=== PATIENT | male | born 1950 | race Caucasian/White ===

== ENCOUNTER → 2021-02-05 11:45 | Outpatient (BNVA) | payer MEDICAID, SELFPAY ==
[2020-02-26 15:34] VITALS: BP 106/80; BMI 27.3
== END ==
PROVIDERS: Family Provider Family Medicine; PCP Family Medicine; Visit Provider Specialist
DX: G31.83 Neurocognitive disorder with Lewy bodies (principal); F02.80 Dementia in other diseases classified elsewhere, unspecified severity, without behavioral disturbance, psychotic disturbance, mood disturbance, and anxiety; F31.9 Bipolar disorder, unspecified; F81.9 Developmental disorder of scholastic skills, unspecified; F17.210 Nicotine dependence, cigarettes, uncomplicated
CPT/HCPCS: 99205

== ENCOUNTER → 2021-03-20 10:57 | Outpatient (BNVA) | payer MEDICAID, SELFPAY ==
[2020-02-26 15:34] VITALS: BP 106/80; BMI 27.3
== END ==
PROVIDERS: Family Provider Family Medicine; PCP Family Medicine; Visit Provider Specialist
DX: G31.83 Neurocognitive disorder with Lewy bodies (principal); F02.80 Dementia in other diseases classified elsewhere, unspecified severity, without behavioral disturbance, psychotic disturbance, mood disturbance, and anxiety; F31.9 Bipolar disorder, unspecified; F81.9 Developmental disorder of scholastic skills, unspecified; F17.200 Nicotine dependence, unspecified, uncomplicated
CPT/HCPCS: 99214

== ENCOUNTER 2023-01-06 07:19 | Emergency (ER) | payer MEDICAID, SELFPAY ==
[2020-02-26 15:34] VITALS: BP 106/80; BMI 27.3
[2023-01-06 07:22] VITALS: BP 133/71; PULSE 64; RESP 20; TEMP 37; O2SAT 92
--- NOTE | 2023-01-06 07:29 | ECG_ITS ---
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 Measurements Intervals [place] Rate: 61 P: 41 NM: 209 QRS: 60 QRSD: 86 T: 66 QT: 372 QTc: 376 Interpretive Statements SINUS RHYTHM Nonspecific ST changes previous ECG available for comparison Electronically Signed On 01-06-2023 20:24:44 CDT by Liliana Lopez M.D. [email or web address] memorial [email or web address] county [email or web address].[email or web address]/store/[id number]
--- NOTE | 2023-01-06 07:29 | XR_ITS ---
WS: [id number] EXAMINATION: XR chest 1V portable [id number] REASON FOR EXAM: dyspnea/cough COMPARISON: 02/28/2015 ORDER DATE: 01/06/2023 7:32 AM TECHNIQUE: A single, portable frontal chest x-ray was obtained. X-RAY FINDINGS: The lungs are clear. Pleural spaces are clear. No pleural effusions or pneumothorax. Cardiomediastinal silhouette is altered by distorted chest positioning and the presence of a prominen t thoracolumbar scoliosis with the possibility of widening of the superior mediastinum. Aortic ectasi a and tortuosity suggested.. No evidence for pulmonary edema. Soft tissue and osseous structures are unremarkable. No tubes or lines are present. XR/XR chest 1V portable [id number] IMPRESSION: No acute pulmonary change
[2023-01-06 07:35] LABS: Basophils # 0.1 10^3/uL (0.0-0.1); Basophils % 0.8 %; Eosinophils # 0.4 10^3/uL (0.0-0.8); Eosinophils % 6.1 %; Hematocrit 35.6 % (42.0-52.0); Lymphocytes # 1.3 10^3/uL (0.8-4.8); Lymphocytes % 22.1 %; Mean Corpuscular HGB Conc 30.9 g/dL (30.0-36.0); Mean Corpuscular Hemoglobin 29.6 pg (28.0-34.0); Mean Corpuscular Volume 95.7 fl (80-94); Mean Platelet Volume 10.8 fL (7.4-10.4); Monocytes # 0.6 10^3/uL (0.2-0.9); Monocytes % 10.2 %; Neutrophils # 3.57 10^3/uL (1.8-7.7); Neutrophils % 60.6 %; Nucleated Red Blood Cells % 0 %; Platelet Count 191 10^3/cmm (130-400); Red Blood Count 3.72 10^6/uL (4.1-5.3); Red Cell Distribution Width 12.9 % (12.1-15.1); White Blood Count 5.9 10^3/uL (4.0-10.0)
--- NOTE | 2023-01-06 07:55 | ED_ITS ---
HPI - Weakness General: Chief complaint: Weakness Stated complaint: Weakness Time Seen by Provider: 01/06/23 07:24 Source: patient Mode of arrival: EMS History of Present Illness: 72-year-old male presents emergency room via EMS. He lives at a assisted living type setting still smokes heavily he was using a walker this morning which is his usual routine and he stumbled with a walker and fell. He denies any pain did not strike his head did not lose consciousness. He is not on any anticoagulants. No chest pain or shortness of breath. Patient still smokes a couple of packs a day has significant nicotine staining on his left hand as well as on his mustache and sanchez. According to his old records he has a history of Lewy body dementia. Associated symptoms: Reports confusion; Denies chest pain, chills, melena, decreased appetite, diaphoresis, dysuria, easy bruising, fever(s), headache(s), myalgias, nausea, rash, short of breath, syncope or vomiting Review of Systems Const: Denies: fever(s), chills, fatigue, malaise or diaphoresis ENMT: Denies: throat pain, ear or mastoid pain, nasal discharge or nasal congestion Card: Denies: chest pain, palpitations, irregular heart rhythm or syncope Resp: Denies: dyspnea, productive cough or non-productive cough GI: Denies: nausea, vomiting or melena : Denies: dysuria Musc: Denies: neck pain, back pain or extremity pain Skin/Breast: Denies: rash or pruritus Neuro: Reports: confusion; Denies: headache(s) Dannie/Lymph: Denies: easy bruising [facility] ED PFSH: Medical History (Updated 01/06/23 @ 09:57 by Geovanny Solis DO) Bipolar affective COPD (chronic obstructive pulmonary disease) Learning disability Lewy body dementia Schizophrenia Family History Grandmother Diabetes Grandfather Cancer Social History Quit status (tobacco): not considering quitting Alcohol intake: never Substance/Drug Use: never Housing: Assisted Living Facility Marital status: Single Current gender identity: Male Physical Exam Const: GENERAL APPEARANCE: cooperative and comfortable ORIENTATION/CONSCIOUSNESS: Yes awake, Yes oriented to person, Yes oriented to place and Yes oriented to time HENMT: COMMON NORMALS: normocephalic, atraumatic and hearing grossly normal bi laterally HEAD & SCALP: normocephalic and atraumatic Resp: COMMON NORMALS: normal respiratory effort, No retractions, No use of accessory muscles and clear to auscultation bilaterally AUSCULTATION: clear to auscultation bilaterally Cardio: COMMON NORMALS: regular rate, regular rhythm and No murmurs present (Cardio) RATE: regular rate RHYTHM: regular rhythm GI: COMMON NORMALS: Soft to palpation and No hepatosplenomegaly present AUSCULTATION: Yes normoactive bowel sounds PALPATION: Yes Soft to palpation, No Tenderness to palpation present (GI), No Guarding due to palpation present (GI) and Yes No hepatosplenomegaly present Extremity: COMMON NORMALS: normal to inspection, capillary refill normal, no clubbing, cyanosis or edema, no calf tenderness and no pedal edema Neuro: SENSORIUM/ORIENTATION: Yes oriented to person, Yes oriented to place and Yes oriented to time Skin: COMMON NORMALS: no rashes or lesions noted GENERAL SKIN EXAM: no rashes or lesions noted Course Vital Signs: Vital signs: Vital Signs Temperature 98.6 F 01/06/23 07:22 Pulse Rate 64 01/06/23 07:22 Respiratory Rate 20 H 01/06/23 07:22 Blood Pressure 133/71 01/06/23 07:22 Pulse Oximetry 92 01/06/23 07:22 Oxygen Delivery Me thod Room Air 01/06/23 07:22 MDM - Weakness Medical Decision Making Initial EKG computer read as ST elevation in the inferior leads. Patient has no chest pain there is no reciprocal changes. Appears to be artifactual. We will repeat EKG. Mechanical fall patient has history of Lewy body disease. He is not having any chest pain laboratories reviewed he is some mild anemia chronic kidney disease with a creatinine of 1.4. EKG unchanged from previous repeat EKG was normal. We will discharge patient home. Discussed with the family they would like to go home at this point. Return if has further problems. Medical Records I reviewed the patient's medical records. Lab Data I reviewed the patient's lab results. 01/06/23 07:10 01/06/23 07:10 Radiology Impressions Chest X-Ray 01/06/23 07:29 IMPRESSION: No acute pulmonary change Laboratory Results WBC 5.9 10^3/uL (4.0-10.0) 01/06/23 07:10 RBC 3.72 10^6/uL (4.1-5.3) L 01/06/23 07:10 Hgb 11.0 g/dL (11.7-16.6) L 01/06/23 07:10 Hct 35.6 % (42.0-52.0) L 01/06/23 07:10 MCV 95.7 fl (80-94) H 01/06/23 07:10 MCH 29.6 pg (28.0-34.0) 01/06/23 07:10 MCHC 30.9 g/dL (30.0-36.0) 01/06/23 07:10 RDW 12.9 % (12.1-15.1) 01/06/23 07:10 Plt Count 191 10^3/cmm (130-400) 01/06/23 07:10 MPV 10.8 fL (7.4-10.4) H 01/06/23 07:10 Neut % (Auto) 60.6 % 01/06/23 07:10 Lymph % (Auto) 22.1 % 01/06/23 07:10 [place] % (Auto) 10.2 % 01/06/23 07:10 Eos % (Auto) 6.1 % 01/06/23 07:10 Baso % (Auto) 0.8 % 01/06/23 07:10 Neut # (Auto) 3.57 10^3/uL (1.8-7.7) 01/06/23 07:10 Lymph # (Auto) 1.3 10^3/uL (0.8-4.8) 01/06/23 07:10 [place] # (Auto) 0.6 10^3/uL (0.2-0.9) 01/06/23 07:10 Eos # (Auto) 0.4 10^3/uL (0.0-0.8) 01/06/23 07:10 Baso # (Auto) 0.1 10^3/uL (0.0-0.1) 01/06/23 07:10 Nucleated RBC % (auto) 0 % 01/06/23 07:10 Nucleated RBCs # 0.0 /100WBC 01/06/23 07:10 Sodium 140 mmol/L (136-145) 01/06/23 07:10 Potassium 5.0 mmol/L (3.5-5.1) 01/06/23 07:10 Chloride 108 mmol/L (98-107) H 01/06/23 07:10 Carbon Dioxide 23 mmol/L (22-29) 01/06/23 07:10 Anion Gap 14.0 (5-19) 01/06/23 07:10 BUN 15 mg/dL (8-23) 01/06/23 07:10 Creatinine 1.4 mg/dL (0.7-1.2) H 01/06/23 07:10 GFR Calculation Not Reportable 01/06/23 07:10 Glucose 98 mg/dL (65-115) 01/06/23 07:10 Calculated Osmolality 291 mOsm/kg (285-295) 01/06/23 07:10 Calcium 9.4 mg/dL (8.5-10.5) 01/06/23 07:10 Total Bilirubin 0.2 mg/dL (0.15-1.2) 01/06/23 07:10 AST 14 U/L (0-40) 01/06/23 07:10 ALT 10 U/L (0-41) 01/06/23 07:10 Alkaline Phosphatase 98 U/L (40-130) 01/06/23 07:10 Total Protein 5.7 g/dL (6.6-8.7) L 01/06/23 07:10 Albumin 3.6 g/dL (3.5-5.2) 01/06/23 07:10 Globulin 2.1 g/dL (1.3-4.6) 01/06/23 07:10 Urine Color Yellow (Yellow) 01/06/23 08:07 Urine Appearance Clear (CLEAR) 01/06/23 08:07 Urine pH 7 (5-7) 01/06/23 08:07 Ur Specific [place] 1.010 (1.005-1.030) 01/06/23 08:07 Urine Protein Neg (Negative) 01/06/23 08:07 Urine Glucose (UA) Norm (Normal) 01/06/23 08:07 Urine Ketones Negative (Negative) 01/06/23 08:07 Urine Blood Neg (Negative) 01/06/23 08:07 Urine Nitrate Negative (Negative) 01/06/23 08:07 Urine Bilirubin Neg (Negative) 01/06/23 08:07 Urine Urobilinogen Norm mg/dL (Negative) 01/06/23 08:07 Ur Leukocyte Esterase Negative (Negative) 01/06/23 08:07 Discharge Plan Discharge Patient Disposition: Home Clinical Impression: Accident due to mechanical fall without injury, Lewy body dementia Condition: Stable Prescriptions: No Action escitalopram oxalate [Lexapro] 10 mg tablet 10 mg PO DAILY@08 loratadine 10 mg tablet 10 mg PO DAILY@08 risperidone [Risperdal] 0.5 mg tablet 0.5 mg PO BID@08,20 omeprazole 40 mg capsule,delayed release(DR/EC) 40 mg PO BID@05,16 tamsulosin [Flomax] 0.4 mg capsule 0.4 mg PO BEDTIME@20 trihexyphenidyl 2 mg tablet 2 mg PO BID@08,20 Rx Instructions: give with food (meal/snack) Advair Diskus 250-50 mcg/dose Blister With Device 1 inh INHALATION BID@08,20 albuterol sulfate 2.5 mg /3 mL (0.083 %) Solution For Nebulization 2.5 mg INHALATION Q6H PRN (Reason: Shortness Of Breath) urea 40 % Cream See Rx Instructions .ROUTE .COMPLEX Rx Instructions: apply topically to affected area on right foot callus at bedtime @20:00 propranolol 20 mg Tablet 20 mg PO BID@08,20 Spiriva with HandiHaler 18 mcg Capsule, W/Inhalation Device 1 cap INHALATION DAILY@06 Rx Instructions: puncture 1 cap using device; one dose = 2 inhalations lithium carbonate 300 mg capsule 300 mg PO DAILY@08 Sinemet 25-100 mg tablet 1 tab PO BID@08,12 Discharge Orders: Discharge ED (Routine); Ordered 01/06/23 Ordered By: Geovanny Solis Referrals: Rosi Hernandez MD [Primary Care Provider] - Discharge Diet: Usual diet Discharge Activity: Resume usual activity Patient Instructions: Opioid Safety, Pain Management Activity Restrictions/Additional Instructions: You are seen today after a fall. There were no acute findings on labs and x-ray done in the emergency room your exam was normal. Continue all previously prescribed medications. Coding Level of Care Code ED Corporate Counsel for Ashley Augustin
--- NOTE | 2023-01-06 07:58 | ECG_ITS ---
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 Measurements Intervals [place] Rate: 51 P: 47 TN: 179 QRS: 69 QRSD: 88 T: 75 QT: 401 QTc: 370 Interpretive Statements SINUS BRADYCARDIA Compared to ECG 01/06/2023 07:35:56 Sinus rhythm no longer present ST (T wave) deviation no longer present Myocardial infarct finding no longer present Electronically Signed On 01-06-2023 20:25:50 CDT by Liliana Lopez M.D. [email or web address] general [email or web address] Technologiesmckitrick hospital.[place]/store/[id number]
[2023-01-06 08:15] LABS: Alanine Aminotransferase 10 U/L (0-41); Albumin Level 3.6 g/dL (3.5-5.2); Alkaline Phosphatase 98 U/L (40-130); Aspartate Amino Transferase 14 U/L (0-40); Blood Urea Nitrogen 15 mg/dL (8-23); Calcium 9.4 mg/dL (8.5-10.5); Carbon Dioxide 23 mmol/L (22-29); Chloride 108 mmol/L (98-107); Globulin 2.1 g/dL (1.3-4.6); Glucose 98 mg/dL (65-115); Osmolality Calculated 291 mOsm/kg (285-295); Sodium 140 mmol/L (136-145); Total Bilirubin 0.2 mg/dL (0.15-1.2); Total Protein 5.7 g/dL (6.6-8.7)
[2023-01-06 08:22] LABS: Add Urine Microscopic? NO; Charge for UA Resulting for Rev
[2023-01-06 08:27] LABS: Bilirubin Urine Neg (Negative); Blood Urine Neg (Negative); Glucose Urine UA Norm (Normal); Ketones Urine Negative (Negative); Leukocyte Esterase Urine Negative (Negative); Nitrate Urine Negative (Negative); Protein Urine Neg (Negative); Urine Appearance Clear (CLEAR); Urine Color Yellow (Yellow); Urobilinogen Urine Norm (Negative); pH Urine 7 (5-7)
--- NOTE | 2023-01-06 08:29 | PC.PHAR ---
pt is from [facility] [phone]-denita carias nurse at [facility] states the pt had no 8 am meds states the pt only took omeprazole 40mg and spiriva this am 01/06/23
== END 2023-01-06 10:58 | disposition home or self-care (01) ==
PROVIDERS: Emergency Provider Family Medicine; PCP Family Medicine
DX: G31.83 Neurocognitive disorder with Lewy bodies (principal); F02.80 Dementia in other diseases classified elsewhere, unspecified severity, without behavioral disturbance, psychotic disturbance, mood disturbance, and anxiety; J44.9 Chronic obstructive pulmonary disease, unspecified; D63.1 Anemia in chronic kidney disease; F17.210 Nicotine dependence, cigarettes, uncomplicated; Z79.899 Other long term (current) drug therapy; W01.0XXA Fall on same level from slipping, tripping and stumbling without subsequent striking against object, initial encounter
CPT/HCPCS: 71045; 80053; 81003; 85025; 93005; 99285

== ENCOUNTER → 2023-12-08 09:41 | Outpatient (BNVA) | payer MEDICAID, SELFPAY ==
[2020-02-26 15:34] VITALS: BP 106/80; BMI 27.3
== END ==
PROVIDERS: PCP Family Medicine; Referring Provider Family Medicine; Visit Provider Specialist
DX: G20.B2 Parkinson's disease with dyskinesia, with fluctuations (principal); R29.90 Unspecified symptoms and signs involving the nervous system; F31.78 Bipolar disorder, in full remission, most recent episode mixed
CPT/HCPCS: 99214; 99215

== ENCOUNTER 2024-02-24 04:32 | Inpatient (IN) | payer MEDICAID, SELFPAY ==
[2020-02-26 15:34] VITALS: BP 106/80; BMI 27.3
[2024-02-24] VITALS (10 sets, daily range): BP systolic 85–119; BP diastolic 40–74; PULSE 16–80; RESP 14–19; TEMP 36.6–36.9; O2SAT 92–96; BMI 23.3; BMI 22.1
--- NOTE | 2024-02-24 04:38 | XRR_ITS ---
PROCEDURE INFORMATION: Exam: XR Right Hip Exam date and time: 02/24/2024 5:12 AM Age: 73 years old Clinical indication: Injury or trauma; Fall; Blunt trauma (contusions or hematomas); Right; Hip; Additional info: Hip pain TECHNIQUE: Imaging protocol: Radiologic exam of the right hip. Views: 1 view hip with pelvis when performed. COMPARISON: No relevant prior studies available. FINDINGS: Bones/joints: There are degenerative changes involving the lower lumbar spine. There is an intertrochanteric fracture on the right with proximal migration of the distal fracture fragment and medial angulation of the distal fracture fragment. The pelvic ring otherwise appears to be intact. Proximal left femur is normal. Bony mineralization is decreased. Soft tissues: Unremarkable. XR/XR hip RT 2-3V wo/w pel* [id number] IMPRESSION: 1. Intertrochanteric fracture proximal right femur.
--- NOTE | 2024-02-24 04:40 | W.ED.FALL ---
Documented by User: Renetta Winter MD 02/24/24 05:39 HPI - Fall General: Chief Complaint: Fall Stated Complaint: fall R leg deformity Time Seen by Provider: 02/24/24 04:38 History of Present Illness: 73-year-old man with history of schizophrenia, Lewy body dementia and COPD who [facility] after he was found sitting on the floor crosslegged. He appears to have some deformity of his right leg possibly, however he has some baseline abnormalities of his feet legs and torso. Concern for right hip fracture. Related Data Home Medications Medication Instructions Recorded Confirmed escitalopram oxalate 10 mg tablet 10 mg PO DAILY@12/28/19 12/08/23 (Lexapro) loratadine 10 mg tablet 10 mg PO DAILY@12/28/19 12/08/23 omeprazole 40 mg capsule,delayed 40 mg PO BID@,12/28/19 12/08/23 release tamsulosin 0.4 mg capsule (Flomax) 0.4 mg PO BEDTIME@12/28/19 12/08/23 albuterol sulfate 2.5 mg/3 mL 2.5 mg inhalation Q6H PRN 01/06/23 12/08/23 (0.083 %) solution for nebulization Shortness Of Breath carbidopa 25 mg-levodopa 100 mg 1 tab PO BID@,01/06/23 12/08/23 tablet (Sinemet) fluticasone 250 mcg-salmeterol 50 1 inh inhalation BID@,01/06/23 12/08/23 mcg/dose blistr powdr for inhalation (Advair Diskus) lithium carbonate 300 mg capsule 300 mg PO DAILY@01/06/23 12/08/23 propranolol 20 mg tablet 20 mg PO BID@,01/06/23 12/08/23 tiotropium bromide 18 mcg capsule 1 cap inhalation DAILY@01/06/23 12/08/23 with inhalation device (Spiriva with HandiHaler) urea 40 % topical cream See Rx Instructions .Route .COMPLEX 01/06/23 12/08/23 risperidone 0.5 mg tablet 0.5 mg PO ONCE 12/08/23 12/08/23 (Risperdal) Previous Rx's Medication Instructions Recorded trihexyphenidyl 2 mg tablet 2 mg PO TID #90 tabs 12/08/23 Allergies Allergy/AdvReac Type Severity Reaction Status Date / Time No Known Allergies Allergy Verified 12/08/23 09:44 Review of Systems General: Reports: ROS unobtainable due to medical condition PFSH ED PFSH: Medical History COPD (chronic obstructive pulmonary disease) Learning disability Bipolar affective Lewy body dementia Schizophrenia Family History Grandmother Diabetes Grandfather Cancer Social History Smoking and tobacco/nicotine status: current every day tobacco/nicotine user Quit status (tobacco/nicotine): not considering quitting Alcohol intake: never Substance/Drug Use: never Housing: Assisted Living Facility Marital status: Single Current gender identity: Male Physical Exam Narrative: EXAM NARRATIVE: General: Alert, no acute distress. Skin: Warm, dry. Head: Normocephalic, atraumatic. Neck: Supple, trachea midline. Eye: Extraocular movements are intact. Ears, nose, mouth and throat: mucosa moist. Cardiovascular: Regular, Normal peripheral perfusion. Respiratory: Lungs are clear to auscultation, respirations are non-labored, breath sounds are equal, Symmetrical chest wall expansion. 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 Pain with movement of that leg in the hip. Neurological: Alert, No focal neurological deficit observed. Psychiatric: Cooperative, appropriate mood & affect. Course Vital Signs: Vital signs: Vital Signs Temperature 98.2 F 02/24/24 06:41 Pulse Rate 80 02/24/24 06:41 Respiratory Rate 16 02/24/24 06:41 Blood Pressure 105/61 02/24/24 06:41 Pulse Oximetry 96 02/24/24 06:41 Oxygen Delivery Me thod Room Air 02/24/24 05:56 MDM - Fall Medical Decision Making X-ray of the right hip and pelvis: Acute fracture. Films were interpreted by myself the emergency room provider and pending final radiology review. Chest x-ray: No acute process. No infiltrate. No pneumothorax. This was reviewed and interpreted by myself the ER physician. EKG: Time 5:34 AM. Rate 56. Sinus bradycardia, No ST-T changes, no ectopy, normal [place] & QRS intervals, This was reviewed and interpreted by myself the ER physician at 5:35 AM Lab Data 02/24/24 05:27 02/24/24 05:27 Laboratory Results WBC 7.03 10^3/uL (3.29-11.43) 02/24/24 05:27 RBC 3.68 10^6/uL (3.85-5.65) L 02/24/24 05:27 Hgb 11.00 g/dL (11.27-16.99) L 02/24/24 05:27 Hct 35.9 % (37-53) L 02/24/24 05:27 MCV 97.6 fl (82-101) 02/24/24 05:27 MCH 29.9 pg (27-33) 02/24/24 05:27 MCHC 30.6 g/dL (30-55) 02/24/24 05:27 RDW 13.2 % (12.1-15.1) 02/24/24 05:27 Plt Count 180 10^3/cmm (157-399) 02/24/24 05:27 MPV 11.2 fL (7.4-10.4) H 02/24/24 05:27 Neut % (Auto) 53.9 % 02/24/24 05:27 Lymph % (Auto) 28.6 % 02/24/24 05:27 [place] % (Auto) 10.8 % 02/24/24 05:27 Eos % (Auto) 5.7 % 02/24/24 05:27 Baso % (Auto) 0.9 % 02/24/24 05:27 Neut # (Auto) 3.79 10^3/uL (1.8-7.7) 02/24/24 05:27 Lymph # (Auto) 2.0 10^3/uL (0.8-4.8) 02/24/24 05:27 [place] # (Auto) 0.8 10^3/uL (0.2-0.9) 02/24/24 05:27 Eos # (Auto) 0.4 10^3/uL (0.0-0.8) 02/24/24 05:27 Baso # (Auto) 0.1 10^3/uL (0.0-0.1) 02/24/24 05:27 Nucleated RBC % (auto) 0 % 02/24/24 05:27 Nucleated RBCs # 0.0 /100WBC 02/24/24 05:27 PT 12.70 SECONDS (12.1-14.9) 02/24/24 05:27 INR 0.92 (0.8-1.2) 02/24/24 05:27 APTT 34.7 SECONDS (23.9-36.7) 02/24/24 05:27 Sodium 138 mmol/L (136-145) 02/24/24 05:27 Potassium 4.7 mmol/L (3.5-5.1) 02/24/24 05:27 Chloride 105 mmol/L (98-107) 02/24/24 05:27 Carbon Dioxide 26 mmol/L (22-29) 02/24/24 05:27 Anion Gap 11.7 (5-19) 02/24/24 05:27 BUN 24 mg/dL (8-23) H 02/24/24 05:27 Creatinine 1.3 mg/dL (0.7-1.2) H 02/24/24 05:27 GFR Calculation Not Reportable 02/24/24 05:27 Glucose 108 mg/dL (65-115) 02/24/24 05:27 Calculated Osmolality 291 mOsm/kg (285-295) 02/24/24 05:27 Calcium 8.8 mg/dL (8.5-10.5) 02/24/24 05:27 Total Bilirubin 0.3 mg/dL (0.15-1.2) 02/24/24 05:27 AST 16 U/L (0-40) 02/24/24 05:27 ALT < 5 U/L (0-41) 02/24/24 05:27 Alkaline Phosphatase 112 U/L (40-130) 02/24/24 05:27 Troponin T Baseline 11 ng/L (0-15) 02/24/24 05:27 C-Reactive Protein 3.0 mg/L (0.0-4.9) 02/24/24 05:27 Total Protein 6.4 g/dL (6.6-8.7) L 02/24/24 05:27 Albumin 3.6 g/dL (3.5-5.2) 02/24/24 05:27 Globulin 2.8 g/dL (1.3-4.6) 02/24/24 05:27 TSH 1.16 uIU/mL (0.27-4.20) 02/24/24 05:27 Urine Color Yellow (Yellow) 02/24/24 06:00 Urine Appearance Cloudy (CLEAR) A 02/24/24 06:00 Urine pH 6.5 (5-7) 02/24/24 06:00 Ur Specific [place] 1.007 (1.005-1.030) 02/24/24 06:00 Urine Protein Negative (Negative) 02/24/24 06:00 Urine Glucose (UA) Negative (Normal) 02/24/24 06:00 Urine Ketones Negative (Negative) 02/24/24 06:00 Urine Blood Negative (Negative) 02/24/24 06:00 Urine Nitrate Positive (Negative) A 02/24/24 06:00 Urine Bilirubin Negative (Negative) 02/24/24 06:00 Urine Urobilinogen 0.2 mg/dL (Negative) 02/24/24 06:00 Ur Leukocyte Esterase 2+ (Negative) A 02/24/24 06:00 Urine RBC 0-2 /hpf (0-2) 02/24/24 06:00 Urine WBC 21-50 /hpf (0-5) H 02/24/24 06:00 Ur Squamous Epith Cells 0-5 /hpf (0-5) 02/24/24 06:00 Amorphous Sediment Not Reportable 02/24/24 06:00 Urine Bacteria 4+ /hpf (NONE) H 02/24/24 06:00 Hyaline Casts 0-4 /lpf H 02/24/24 06:00 [place] 0.6 mmol/L (0.6-1.2) 02/24/24 05:27 Discharge Plan Discharge Patient Disposition: Admitted As Inpatient Admit Provider: Bhupinder Jara Clinical Impression: Closed hip fracture, Lewy body dementia, UTI (urinary tract infection) Parkinson's Disease Qualifiers: Dyskinesia presence: with dyskinesia Fluctuating manifestations: with fluctuating manifestations Qualified Code(s): G20.B2 - Parkinson's disease with dyskinesia, with fluctuations Condition: Stable Coding Level of Care Code ED Front Sight Attacher for Chg Fwd Documented by User: Geovanny Solis DO 02/24/24 07:09 HPI - Fall General: Chief Complaint: Fall Stated Complaint: fall R leg deformity Time Seen by Provider: 02/24/24 04:38 Related Data Home Medications Medication Instructions Recorded Confirmed escitalopram oxalate 10 mg tablet 10 mg PO DAILY@12/28/19 12/08/23 (Lexapro) loratadine 10 mg tablet 10 mg PO DAILY@12/28/19 12/08/23 omeprazole 40 mg capsule,delayed 40 mg PO BID@05,12/28/19 12/08/23 release tamsulosin 0.4 mg capsule (Flomax) 0.4 mg PO BEDTIME@12/28/19 12/08/23 albuterol sulfate 2.5 mg/3 mL 2.5 mg inhalation Q6H PRN 01/06/23 12/08/23 (0.083 %) solution for nebulization Shortness Of Breath carbidopa 25 mg-levodopa 100 mg 1 tab PO BID@08,01/06/23 12/08/23 tablet (Sinemet) fluticasone 250 mcg-salmeterol 50 1 inh inhalation BID@,01/06/23 12/08/23 mcg/dose blistr powdr for inhalation (Advair Diskus) lithium carbonate 300 mg capsule 300 mg PO DAILY@01/06/23 12/08/23 propranolol 20 mg tablet 20 mg PO BID@,01/06/23 12/08/23 tiotropium bromide 18 mcg capsule 1 cap inhalation DAILY@01/06/23 12/08/23 with inhalation device (Spiriva with HandiHaler) urea 40 % topical cream See Rx Instructions .Route .COMPLEX 01/06/23 12/08/23 risperidone 0.5 mg tablet 0.5 mg PO ONCE 12/08/23 12/08/23 (Risperdal) Previous Rx's Medication Instructions Recorded trihexyphenidyl 2 mg tablet 2 mg PO TID #90 tabs 12/08/23 Allergies Allergy/AdvReac Type Severity Reaction Status Date / Time No Known Allergies Allergy Verified 12/08/23 09:44 [facility] ED PFSH: Medical History COPD (chronic obstructive pulmonary disease) Learning disability Bipolar affective Lewy body dementia Schizophrenia Family History Grandmother Diabetes Grandfather Cancer Social History Smoking and tobacco/nicotine status: current every day tobacco/nicotine user Quit status (tobacco/nicotine): not considering quitting Alcohol intake: never Substance/Drug Use: never Housing: Assisted Living Facility Marital status: Single Current gender identity: Male Course Vital Signs: Vital signs: Vital Signs Temperature 98.2 F 02/24/24 06:41 Pulse Rate 80 02/24/24 06:41 Respiratory Rate 16 02/24/24 06:41 Blood Pressure 105/61 02/24/24 06:41 Pulse Oximetry 96 02/24/24 06:41 Oxygen Delivery Me thod Room Air 02/24/24 05:56 MDM - Fall Medical Decision Making X-ray of the right hip and pelvis: Acute fracture. Films were interpreted by myself the emergency room provider and pending final radiology review. Chest x-ray: No acute process. No infiltrate. No pneumothorax. This was reviewed and interpreted by myself the ER physician. EKG: Time 5:34 AM. Rate 56. Sinus bradycardia, No ST-T changes, no ectopy, normal [place] & QRS intervals, This was reviewed and interpreted by myself the ER physician at 5:35 AM Care assumed at change of shift. Right intertrochanteric hip fracture with a history of schizophrenia and Parkinson's. Discussed Dr. Jara as well as Dr. Quesada will admit orders written lithium level also ordered. Medical Records I reviewed the patient's medical records. Lab Data I reviewed the patient's lab results. 02/24/24 05:27 02/24/24 05:27 Laboratory Results WBC 7.03 10^3/uL (3.29-11.43) 02/24/24 05:27 RBC 3.68 10^6/uL (3.85-5.65) L 02/24/24 05:27 Hgb 11.00 g/dL (11.27-16.99) L 02/24/24 05:27 Hct 35.9 % (37-53) L 02/24/24 05:27 MCV 97.6 fl (82-101) 02/24/24 05:27 MCH 29.9 pg (27-33) 02/24/24 05:27 MCHC 30.6 g/dL (30-55) 02/24/24 05:27 RDW 13.2 % (12.1-15.1) 02/24/24 05:27 Plt Count 180 10^3/cmm (157-399) 02/24/24 05:27 MPV 11.2 fL (7.4-10.4) H 02/24/24 05:27 Neut % (Auto) 53.9 % 02/24/24 05:27 Lymph % (Auto) 28.6 % 02/24/24 05:27 [place] % (Auto) 10.8 % 02/24/24 05:27 Eos % (Auto) 5.7 % 02/24/24 05:27 Baso % (Auto) 0.9 % 02/24/24 05:27 Neut # (Auto) 3.79 10^3/uL (1.8-7.7) 02/24/24 05:27 Lymph # (Auto) 2.0 10^3/uL (0.8-4.8) 02/24/24 05:27 [place] # (Auto) 0.8 10^3/uL (0.2-0.9) 02/24/24 05:27 Eos # (Auto) 0.4 10^3/uL (0.0-0.8) 02/24/24 05:27 Baso # (Auto) 0.1 10^3/uL (0.0-0.1) 02/24/24 05:27 Nucleated RBC % (auto) 0 % 02/24/24 05:27 Nucleated RBCs # 0.0 /100WBC 02/24/24 05:27 PT 12.70 SECONDS (12.1-14.9) 02/24/24 05:27 INR 0.92 (0.8-1.2) 02/24/24 05:27 APTT 34.7 SECONDS (23.9-36.7) 02/24/24 05:27 Sodium 138 mmol/L (136-145) 02/24/24 05:27 Potassium 4.7 mmol/L (3.5-5.1) 02/24/24 05:27 Chloride 105 mmol/L (98-107) 02/24/24 05:27 Carbon Dioxide 26 mmol/L (22-29) 02/24/24 05:27 Anion Gap 11.7 (5-19) 02/24/24 05:27 BUN 24 mg/dL (8-23) H 02/24/24 05:27 Creatinine 1.3 mg/dL (0.7-1.2) H 02/24/24 05:27 GFR Calculation Not Reportable 02/24/24 05:27 Glucose 108 mg/dL (65-115) 02/24/24 05:27 Calculated Osmolality 291 mOsm/kg (285-295) 02/24/24 05:27 Calcium 8.8 mg/dL (8.5-10.5) 02/24/24 05:27 Total Bilirubin 0.3 mg/dL (0.15-1.2) 02/24/24 05:27 AST 16 U/L (0-40) 02/24/24 05:27 ALT < 5 U/L (0-41) 02/24/24 05:27 Alkaline Phosphatase 112 U/L (40-130) 02/24/24 05:27 Troponin T Baseline 11 ng/L (0-15) 02/24/24 05:27 C-Reactive Protein 3.0 mg/L (0.0-4.9) 02/24/24 05:27 Total Protein 6.4 g/dL (6.6-8.7) L 02/24/24 05:27 Albumin 3.6 g/dL (3.5-5.2) 02/24/24 05:27 Globulin 2.8 g/dL (1.3-4.6) 02/24/24 05:27 TSH 1.16 uIU/mL (0.27-4.20) 02/24/24 05:27 Urine Color Yellow (Yellow) 02/24/24 06:00 Urine Appearance Cloudy (CLEAR) A 02/24/24 06:00 Urine pH 6.5 (5-7) 02/24/24 06:00 Ur Specific [place] 1.007 (1.005-1.030) 02/24/24 06:00 Urine Protein Negative (Negative) 02/24/24 06:00 Urine Glucose (UA) Negative (Normal) 02/24/24 06:00 Urine Ketones Negative (Negative) 02/24/24 06:00 Urine Blood Negative (Negative) 02/24/24 06:00 Urine Nitrate Positive (Negative) A 02/24/24 06:00 Urine Bilirubin Negative (Negative) 02/24/24 06:00 Urine Urobilinogen 0.2 mg/dL (Negative) 02/24/24 06:00 Ur Leukocyte Esterase 2+ (Negative) A 02/24/24 06:00 Urine RBC 0-2 /hpf (0-2) 02/24/24 06:00 Urine WBC 21-50 /hpf (0-5) H 02/24/24 06:00 Ur Squamous Epith Cells 0-5 /hpf (0-5) 02/24/24 06:00 Amorphous Sediment Not Reportable 02/24/24 06:00 Urine Bacteria 4+ /hpf (NONE) H 02/24/24 06:00 Hyaline Casts 0-4 /lpf H 02/24/24 06:00 [place] 0.6 mmol/L (0.6-1.2) 02/24/24 05:27 XR interpretation done by ED provider, pending radiology final review Discharge Plan Discharge Patient Disposition: Admitted As Inpatient Admit Provider: Bhupinder Jara Clinical Impression: Closed hip fracture, Lewy body dementia, UTI (urinary tract infection) Parkinson's Disease Qualifiers: Dyskinesia presence: with dyskinesia Fluctuating manifestations: with fluctuating manifestations Qualified Code(s): G20.B2 - Parkinson's disease with dyskinesia, with fluctuations Condition: Stable Coding Level of Care Code ED Front Sight Attacher for Ashley Augustin
--- NOTE | 2024-02-24 05:14 | XRR_ITS ---
PROCEDURE INFORMATION: Exam: XR Chest Exam date and time: 02/24/2024 5:27 AM Age: 73 years old Clinical indication: Injury or trauma; Fall; Blunt trauma (contusions or hematomas); Additional info: Presurgical workup TECHNIQUE: Imaging protocol: Radiologic exam of the chest. Views: 1 view. COMPARISON: CR XR chest 1V portable [id number] 01/06/2023 7:59 AM FINDINGS: Lungs: Unremarkable. No consolidation. Pleural spaces: Unremarkable. No pleural effusion. No pneumothorax. Heart/Mediastinum: The heart is slightly enlarged. There is calcified plaque involving the aorta. Bones/joints: Unremarkable. XR/XR chest 1V portable [id number] IMPRESSION: 1. Mild cardiomegaly.
--- NOTE | 2024-02-24 05:14 | ECG_ITS ---
[facility] Test Date: 2024-02-24 Pat Name: Miller Villanueva Department: Room: Gender: Male Android Ios Developer: : [id number] Requested By: Renetta Ferrer Order Number: [id number] Reading MD: SURAJ VILLARREAL Measurements Intervals [place] Rate: 55 P: 56 OR: 234 QRS: 75 QRSD: 89 T: 76 QT: 396 QTc: 382 Interpretive Statements SINUS BRADYCARDIA , Artifact Non specific ST changes in inferior leads due to artifact Compared to ECG 01/06/2023 08:03:22 Artifact is present now Electronically Signed On 02-24-2024 11:48:31 CDT by SURAJ VILLARREAL [id number]
--- NOTE | 2024-02-24 05:17 | XRR_ITS ---
PROCEDURE INFORMATION: Exam: XR Right Femur Exam date and time: 02/24/2024 5:22 AM Age: 73 years old Clinical indication: Injury or trauma; Fall; Blunt trauma; Hip; Right; Additional info: Hip fracture TECHNIQUE: Imaging protocol: Radiologic exam of the right femur. Views: 2 views. COMPARISON: CR (PELVIS, ) 02/24/2024 5:12 AM FINDINGS: Bones/joints: There is an intertrochanteric fracture involving the proximal right femur with proximal migration of the distal fracture fragment and medial angulation of the distal fracture fragment. No additional fractures are noted. Bony mineralization is decreased. Right hip joint spaces relatively well preserved. Soft tissues: Unremarkable. XR/XR femur RT min 2V* [id number] IMPRESSION: 1. Intertrochanteric fracture.
[2024-02-24 05:36] LABS: Basophils # 0.1 10^3/uL (0.0-0.1); Basophils % 0.9 %; Eosinophils # 0.4 10^3/uL (0.0-0.8); Eosinophils % 5.7 %; Hematocrit 35.9 % (37-53); Lymphocytes % 28.6 %; Mean Corpuscular HGB Conc 30.6 g/dL (30-55); Mean Corpuscular Hemoglobin 29.9 pg (27-33); Mean Corpuscular Volume 97.6 fl (82-101); Mean Platelet Volume 11.2 fL (7.4-10.4); Monocytes # 0.8 10^3/uL (0.2-0.9); Monocytes % 10.8 %; Neutrophils # 3.79 10^3/uL (1.8-7.7); Neutrophils % 53.9 %; Nucleated Red Blood Cells % 0 %; Platelet Count 180 10^3/cmm (157-399); Red Blood Count 3.68 10^6/uL (3.85-5.65); Red Cell Distribution Width 13.2 % (12.1-15.1); White Blood Count 7.03 10^3/uL (3.29-11.43)
[2024-02-24] MEDS: HYDROmorphone 1 mg/mL INJ 1 mL 0.5 MG IVP (05:37)
[2024-02-24] MEDS: ondansetron 2 mg/ML SDV 2 mL 4 MG IVP (05:37)
[2024-02-24 05:43] LABS: INR 0.92 (0.8-1.2)
[2024-02-24 05:44] LABS: Partial Thromboplastin Time 34.7 SECONDS (23.9-36.7)
[2024-02-24 05:48] LABS: Alanine Aminotransferase < 5 U/L (0-41); Albumin Level 3.6 g/dL (3.5-5.2); Alkaline Phosphatase 112 U/L (40-130); Anion Gap 11.7 (5-19); Aspartate Amino Transferase 16 U/L (0-40); Blood Urea Nitrogen 24 mg/dL (8-23); Calcium 8.8 mg/dL (8.5-10.5); Carbon Dioxide 26 mmol/L (22-29); Chloride 105 mmol/L (98-107); Globulin 2.8 g/dL (1.3-4.6); Glucose 108 mg/dL (65-115); Osmolality Calculated 291 mOsm/kg (285-295); Potassium 4.7 mmol/L (3.5-5.1); Sodium 138 mmol/L (136-145); Total Bilirubin 0.3 mg/dL (0.15-1.2); Total Protein 6.4 g/dL (6.6-8.7)
--- NOTE | 2024-02-24 06:04 | ECG_ITS ---
[facility] Test Date: 2024-02-24 Pat Name: Miller Villanueva Department: Room: Gender: Male Oenologist: : [id number] Requested By: Geovanny Ferrer Order Number: [id number] Reading MD: SURAJ VILLARREAL Measurements Intervals [place] Rate: 56 P: 76 MA: 164 QRS: 81 QRSD: 93 T: 82 QT: 393 QTc: 380 Interpretive Statements SINUS BRADYCARDIA INTERPRETATION BASED ON A DEFAULT AGE OF 40 YEARS Compared to ECG 02/24/2024 05:28:19 First degree AV block no longer present ST (T wave) deviation no longer present Myocardial infarct finding no longer present Electronically Signed On 02-24-2024 11:46:44 CDT by SURAJ VILLARREAL [id number]
[2024-02-24 06:10] LABS: Bilirubin Urine Negative (Negative); Blood Urine Negative (Negative); Glucose Urine UA Negative (Normal); Ketones Urine Negative (Negative); Leukocyte Esterase Urine 2+ (Negative); Nitrate Urine Positive (Negative); Protein Urine Negative (Negative); Specific Gravity, Urine 1.007 (1.005-1.030); Urine Appearance Cloudy (CLEAR); Urine Color Yellow (Yellow); Urobilinogen Urine 0.2 mg/dL (Negative); pH Urine 6.5 (5-7)
[2024-02-24 06:15] LABS: Bacteria Urine 4+ /hpf; Hyaline Casts Urine 0-4 /lpf; RBC Urine 0-2 /hpf (0-2); Squamous Epithelial Cell Urine 0-5 /hpf (0-5); WBC Urine 21-50 /hpf (0-5)
[2024-02-24 06:18] LABS: Add Urine Culture? Yes
[2024-02-24 06:21] LABS: Lithium 0.6 mmol/L (0.6-1.2)
--- NOTE | 2024-02-24 06:22 | P.HP_ITS ---
Providers/Chief Complaint 2 Primary Care Provider: Rosi Hernandez MD Chief Complaint: fall R leg deformity History of Present Illness Miller Villanueva is a 73 year old male with a past medical history of COPD, Lewy body dementia, schizophrenia, bipolar disorder, has choreiform tremor, who presents to [facility] for a fall. Currently patient is alert to person, to place, not to time he follows commands, has episodes of confusion, requires frequent redirection, I frequently have to repeat my questions. He tells me that he got up this evening to use the bathroom and he fell. He tells me then normally he ambulates with a walker. He denies any previous falls. No headache. No blurry vision. No neck pain. No back pain. Denies any dysuria. No hematuria. No chest pain. No shortness of breath. Review of Systems 2 Card: Denies: chest pain Resp: Denies: dyspnea GI: Denies: abdominal pain Medications/Allergies Home Medications Medication Instructions Recorded Confirmed Last Taken Type escitalopram oxalate 10 mg tablet 10 mg PO DAILY@12/28/19 12/08/23 01/05/23 History (Lexapro) loratadine 10 mg tablet 10 mg PO DAILY@12/28/19 12/08/23 01/05/23 History omeprazole 40 mg capsule,delayed 40 mg PO BID@12/28/19 12/08/23 01/06/23 05:00 History release tamsulosin 0.4 mg capsule (Flomax) 0.4 mg PO BEDTIME@12/28/19 12/08/23 01/05/23 History albuterol sulfate 2.5 mg/3 mL 2.5 mg inhalation Q6H PRN 01/06/23 12/08/23 Unknown History (0.083 %) solution for nebulization Shortness Of Breath carbidopa 25 mg-levodopa 100 mg 1 tab PO BID@01/06/23 12/08/23 01/05/23 History tablet (Sinemet) fluticasone 250 mcg-salmeterol 50 1 inh inhalation BID@01/06/23 12/08/23 01/05/23 History mcg/dose blistr powdr for inhalation (Advair Diskus) lithium carbonate 300 mg capsule 300 mg PO DAILY@08 01/06/23 12/08/23 01/05/23 History propranolol 20 mg tablet 20 mg PO BID@08,20 01/06/23 12/08/23 01/05/23 History tiotropium bromide 18 mcg capsule 1 cap inhalation DAILY@06 01/06/23 12/08/23 01/06/23 History with inhalation device (Spiriva with HandiHaler) urea 40 % topical cream See Rx Instructions .Route .COMPLEX 01/06/23 12/08/23 Unknown History risperidone 0.5 mg tablet 0.5 mg PO ONCE 12/08/23 12/08/23 Unknown History (Risperdal) trihexyphenidyl 2 mg tablet 2 mg PO TID #90 tabs 12/08/23 12/08/23 Unknown Rx Allergies Allergy/AdvReac Type Severity Reaction Status Date / Time No Known Allergies Allergy Verified 12/08/23 09:44 PFSH Acute 2 PFSH: Medical History COPD (chronic obstructive pulmonary disease) Learning disability Bipolar affective Lewy body dementia Schizophrenia Family History Grandmother Diabetes Grandfather Cancer Social History Smoking and tobacco/nicotine status: current every day tobacco/nicotine user Quit status (tobacco/nicotine): not considering quitting Alcohol intake: never Substance/Drug Use: never Housing: Assisted Living Facility Marital status: Single Current gender identity: Male Vitals/I&O/Wt Last Vital Signs Temp 98.4 F 02/24/24 04:33 Pulse 71 02/24/24 05:56 Resp 16 02/24/24 05:56 BP 112/40 02/24/24 06:15 Pulse Ox 96 02/24/24 05:56 O2 Del Method Room Air 02/24/24 05:56 Weight last 48 hrs Weight 59.874 kg Physical Exam 2 Const: COMMON NORMALS: no acute distress and patient oriented x3 HENMT: COMMON NORMALS: normocephalic HEAD & SCALP: normocephalic Neck/C-Spine: COMMON NORMALS: no JVD Resp: COMMON NORMALS: normal respiratory effort, No retractions, No use of accessory muscles and clear to auscultation bilaterally AUSCULTATION: clear to auscultation bilaterally Cardio: COMMON NORMALS: regular rate, regular rhythm, S1 normal heart sound present and S2 normal heart sound present RATE: regular rate RHYTHM: r egular rhythm HEART SOUNDS: S1 normal heart sound present and S2 normal heart sound present GI: COMMON NORMALS: Normal to inspection, nondistended, normoactive bowel sounds present, Soft to palpation and non-tender Extremity: COMMON NORMALS: no calf tenderness and no pedal edema NARRATIVE EXTREMITY EXAM: Right lower extremity externally rotated, displaced outwards Neuro: OTHER: Alert to person, to place, not to time, can follow commands such as smiling for me, squeezing my hands with his upper bilateral upper extremities, able to wiggle bilateral toes, right foot is displaced outwards Psych: COMMON NORMALS: mental status grossly normal Skin: NARRATIVE SKIN EXAM: Chest wall deformity left chest Urinary Catheter Management: Nelson: Cath Placed During This Visit: yes Urinary Catheter Date of Insertion: 02/24/24 Urinary Catheter Time of Insertion: 05:57 Data 02/24/24 05:27 02/24/24 05:27 A&P Assessment and plan (1) Closed hip fracture: (2) Parkinson's Disease: Qualifiers: Dyskinesia presence: with dyskinesia Fluctuating manifestations: with fluctuating manifestations Qualified Code(s): G20.B2 - Parkinson's disease with dyskinesia, with fluctuations (3) Learning disability: (4) Lewy body dementia: (5) Altered mental status: (6) UTI (urinary tract infection): Plan Right hip fracture ? N.p.o. ? Dr. Quesada consulted by ER ? Morphine for pain control ? Zofran for nausea ? SCDs for DVT prophylaxis, Lovenox on hold as there is plans on surgery ? CODE STATUS, full code, initially patient had reported that he does not know what he would choose, after going over with him all the options, he elected for full code Altered mental status ? Does have schizophrenia, bipolar disorder, Lewy body dementia ? Baseline mentation unknown, will have to reach out to snf in the morning ? Neurochecks ? CT head UTI ? Cristina Attestations 2 Medical Necessity Statement*: Patient requires hospitalization, inpatient, greater than 2 midnights, for hip fracture, altered mental status UTI Diagnoses Closed hip fracture S72.009A Parkinson's disease with dyskinesia and fluctuating manifestations G20.B2 Dyskinesia presence: with dyskinesia Fluctuating manifestations: with fluctuating manifestations Learning disability F81.9 Lewy body dementia G31.83; F02.80 Altered mental status R41.82 UTI (urinary tract infection) N39.0
--- NOTE | 2024-02-24 06:22 | CTR_ITS ---
PROCEDURE INFORMATION: Exam: CT Head Without Contrast Exam date and time: 02/24/2024 8:26 AM Age: 73 years old Clinical indication: Injury or trauma; Fall; Other: AMS; Additional info: Fall, AMS TECHNIQUE: Imaging protocol: Computed tomography of the head without contrast. Radiation optimization: All CT scans at this facility use at least one of these dose optimization techniques: automated exposure control; mA and/or kV adjustment per patient size (includes targeted exams where dose is matched to clinical indication); or iterative reconstruction. COMPARISON: No relevant prior studies available. RADIATION DOSE METRICS: Total DLP (mGy-cm): 1118 FINDINGS: Brain: There is prominence of the subarachnoid spaces compatible with atrophy. There is small-vessel ischemic change within the periventricular white matter. No acute stroke or hemorrhage is appreciated. Cerebral ventricles: No ventriculomegaly. Paranasal sinuses: There is minimal mucosal thickening involving the paranasal sinuses. No air-fluid levels are identified. Mastoid air cells: Visualized mastoid air cells are well aerated. Bones: There appear to be pseudo fractures involving the temporoparietal bones bilaterally likely related to a degree of motion. If there is a clinical concern for a skull fracture, recommend repeat exam. Soft tissues: Unremarkable. CT/CT head wo con* [id number] IMPRESSION: 1. Atrophy with small-vessel ischemic change. 2. Lucencies involving the temporoparietal bones bilaterally most notably on the coronal reformatted images. These most likely represent pseudo fractures from motion. If there is a clinical concern for a skull fracture, recommend repeat exam.
[2024-02-24 06:48] LABS: Troponin(5th) Baseline 11 ng/L (0-15)
[2024-02-24 07:07] LABS: Thyroid Stimulating Hormone 1.16 uIU/mL (0.27-4.20)
[2024-02-24] MEDS: sodium chloride 0.9% 1,000 ML 75 ML IV ×2 (07:15→21:27)
[2024-02-24] MEDS: cefTRIAXone 1,000 mg SDV 1000 MG IVP (07:15)
[2024-02-24] MEDS: pantoprazole 40 mg SDV IVP (07:16)
[2024-02-24 07:36] LABS: Troponin 5 2HR 11.95 ng/L (0-15); Troponin 5 2HR Delta 0.95 ABS# (0-10)
[2024-02-24] MEDS: lithium carbonate 300 mg Capsule PO (07:58)
[2024-02-24] MEDS: escitalopram 10 mg Tablet PO (07:59)
--- NOTE | 2024-02-24 08:45 | ECG_ITS ---
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
--- NOTE | 2024-02-24 09:00 | PM.MISC ---
Miscellaneous Note Note: Seen today. Patient awaiting consult from orthopedic surgery. He says it was a mechanical fall and he fell while coming out of the bathroom. Currently not having any pain and is comfortably laying in bed.
--- NOTE | 2024-02-24 10:07 | P.CONIM_ITS ---
Providers/Reason For Consult 2 Consulting Physician/Specialty*: Hospitalist Reason for Consult*: Right hip fracture Attending Physician: Brina Alan MD Primary Care Provider: Rosi Hernandez MD History of Present Illness History of Present Illness Miller Villanueva is a 73 year old male sustained a right intertrochanteric hip fracture during a fall in the bathroom last night. Will plan to fix his hip fracture tomorrow Review of Systems 2 Card: Denies: chest pain Resp: Denies: dyspnea GI: Denies: abdominal pain Medications/Allergies Home Medications Medication Instructions Recorded Confirmed Last Taken Type escitalopram oxalate 10 mg tablet 10 mg PO DAILY@12/28/19 02/24/24 01/05/23 History (Lexapro) loratadine 10 mg tablet 10 mg PO DAILY@12/28/19 02/24/24 01/05/23 History omeprazole 40 mg capsule,delayed 40 mg PO BID@12/28/19 02/24/24 01/06/23 05:00 History release tamsulosin 0.4 mg capsule (Flomax) 0.4 mg PO BEDTIME@12/28/19 02/24/24 01/05/23 History albuterol sulfate 2.5 mg/3 mL 2.5 mg inhalation Q6H PRN 01/06/23 02/24/24 Unknown History (0.083 %) solution for nebulization Shortness Of Breath carbidopa 25 mg-levodopa 100 mg 1 tab PO TID 01/06/23 02/24/24 01/05/23 History tablet (Sinemet) fluticasone 250 mcg-salmeterol 50 1 inh inhalation BID@01/06/23 02/24/24 01/05/23 History mcg/dose blistr powdr for inhalation (Advair Diskus) lithium carbonate 300 mg capsule 300 mg PO DAILY@01/06/23 02/24/24 01/05/23 History tiotropium bromide 18 mcg capsule 1 cap inhalation DAILY@01/06/23 02/24/24 01/06/23 History with inhalation device (Spiriva with HandiHaler) risperidone 0.5 mg tablet 0.5 mg PO DAILY 12/08/23 02/24/24 Unknown History (Risperdal) trihexyphenidyl 2 mg tablet 2 mg PO TID #90 tabs 12/08/23 02/24/24 Unknown Rx ferrous sulfate 325 mg (65 mg 325 mg PO .QOD 02/24/24 02/24/24 Unknown History iron) tablet fluticasone propionate 50 1 spray intranasal BID 02/24/24 02/24/24 Unknown History mcg/actuation nasal spray,suspension (Flonase Allergy Relief) polyethylene glycol 3350 17 See Rx Instructions .Route .COMPLEX 02/24/24 02/24/24 Unknown History gram/dose oral powder (Miralax) propranolol 10 mg tablet 10 mg PO BID 02/24/24 02/24/24 Unknown History Allergies Allergy/AdvReac Type Severity Reaction Status Date / Time No Known Allergies Allergy Verified 12/08/23 09:44 Current Medications Generic Name Dose Route Start Last Admin Trade Name Freq PRN Reason Stop Dose Admin Ceftriaxone Sodium 1,000 mg 02/24/24 06:41 02/24/24 07:15 Ceftriaxone 1,000 Mg Sdv IVP 1,000 mg Q24H KAITLYNN Administration Protocol Escitalopram Oxalate 10 mg 02/24/24 08:00 02/24/24 07:59 Escitalopram 10 Mg Tablet PO 10 mg DAILY@08 KAITLYNN Administration Sodium Chloride 1,000 mls @ 75 mls/hr 02/24/24 06:41 02/24/24 07:15 Sodium Chloride 0.9% IV 75 mls/hr .[id number] KAITLYNN Administration [place] Carbonate 300 mg 02/24/24 08:00 02/24/24 07:58 [place] Carbonate 300 Mg Capsule PO 300 mg DAILY@08 KAITLYNN Administration Pantoprazole Sodium 40 mg 02/24/24 06:41 02/24/24 07:16 Pantoprazole 40 Mg Sdv IVP 40 mg Q24H KAITLYNN Administration Propranolol HCl 20 mg 02/24/24 08:00 02/24/24 08:02 Propranolol 20 Mg Tablet PO Not Given BID@08,20 KAITLYNN Trihexyphenidyl HCl 2 mg 02/24/24 09:00 02/24/24 07:58 Trihexyphenidyl 2 Mg Tablet PO 2 mg TID KAITLYNN Administration PFSH Acute 2 PFSH: Medical History COPD (chronic obstructive pulmonary disease) Learning disability Bipolar affective Lewy body dementia Schizophrenia Family History Grandmother Diabetes Grandfather Cancer Social History Smoking and tobacco/nicotine status: current every day tobacco/nicotine user Quit status (tobacco/nicotine): not considering quitting Alcohol intake: never Substance/Drug Use: never Housing: Assisted Living Facility Marital status: Single Current gender identity: Male Vitals/I&O/Wt Last Vital Signs Temp 98.1 F 02/24/24 07:38 Pulse 67 02/24/24 07:38 Resp 17 02/24/24 07:38 BP 102/62 02/24/24 07:56 Pulse Ox 93 02/24/24 07:38 O2 Del Method Room Air 02/24/24 07:38 Weight last 48 hrs Weight 125 lb Weight 132 lb Physical Exam 2 Narrative: Patient resting comfortably in bed asking for a drink of water. Urinary Catheter Management: Nelson: Cath Placed During This Visit: yes Reason for Continuing Indwelling Catheter: Required Immobilization for Trauma or Surgery or Anesthesia Urinary Catheter Date of Insertion: 02/24/24 Urinary Catheter Time of Insertion: 05:57 Data 02/24/24 05:27 02/24/24 05:27 A&P Assessment and plan (1) Closed hip fracture: Patient has a right intertrochanteric hip fracture. Will plan to fix tomorrow. Will use a right intramedullary hip nail from [employer] Qualifiers: Encounter type: initial encounter Laterality: right Qualified Code(s): S72.001A - Fracture of unspecified part of neck of right femur, initial encounter for closed fracture Consult Attestations 2 Medical Necessity Statement: Per primary service Coding Level of Care Code Acute Code for Chg Fwd Diagnoses Closed fracture of right hip, initial encounter S72.001A Encounter type: initial encounter Laterality: right
[2024-02-24 12:15] LABS: Troponin 5 6HR 11.13 ng/L (0-15); Troponin 5 6HR Delta 0.13 ng/L (0-12)
--- NOTE | 2024-02-24 13:52 | ECG_ITS ---
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
[2024-02-24] MEDS: acetaminophen 325 mg Tablet 650 MG PO ×2 (15:10→21:26)
--- NOTE | 2024-02-24 15:14 | P.PN_ITS ---
Vitals/I&O/Wt Last Vital Signs Temp 97.8 F 02/24/24 11:44 Pulse 73 02/24/24 11:44 Resp 16 02/24/24 11:44 BP 94/57 02/24/24 11:44 Pulse Ox 94 02/24/24 11:44 O2 Del Method Room Air 02/24/24 11:44 02/24/24 02/24/24 02/24/24 06:59 14:59 22:59 Intake Total 120 / 120 Balance 120 / 120 Weight last 48 hrs Weight 56.699 kg Weight 59.874 kg Physical Exam 2 Urinary Catheter Management: Nelson: Cath Placed During This Visit: yes Reason for Continuing Indwelling Catheter: Required Immobilization for Trauma or Surgery or Anesthesia Urinary Catheter Date of Insertion: 02/24/24 Urinary Catheter Time of Insertion: 05:57 Data 02/24/24 05:27 02/24/24 05:27 Coding Level of Care Code Acute Code for Chg Fwkelechi
[2024-02-24] MEDS: tamsulosin 0.4 mg Capsule PO (20:22)
[2024-02-24] MEDS: risperiDONE 0.25 mg Tablet 0.5 MG PO (20:22)
[2024-02-25] VITALS (16 sets, daily range): BP systolic 90–123; BP diastolic 50–70; PULSE 63–86; RESP 13–19; TEMP 36.2–37.2; O2SAT 92–100
--- NOTE | 2024-02-25 | XR_ITS ---
WS: [id number] RIGHT HIP, CR HISTORY: HANANE PICS COMPARISON: 02/24/2024 Right hip: Intertrochanteric hip fracture has been stabilized with a long intramedullary ayo and gamm a nail. Fracture good position and alignment. XR/XR hip RT 2-3V wo/w pel* [id number] IMPRESSION: 1. Intraoperative ORIF RIGHT intertrochanteric hip fracture. 2. Avulsed lesser trochanter.
[2024-02-25] MEDS: cefTRIAXone 1,000 mg SDV 1000 MG IVP (05:46)
[2024-02-25] MEDS: pantoprazole 40 mg SDV IVP (05:47)
--- NOTE | 2024-02-25 06:17 | W.PM.OPSUD ---
Surgery/Procedure H&P Update DATE OF PROCEDURE: February 25, 2024 DATE H&P PERFORMED: 02/24/24 H&P UPDATE INFORMATION: I have reviewed H&P completed within last 30 days, I have examined patient prior to procedure and No changes to prior documentation PLANNED PROCEDURE: Operation Date: 02/25/24 12:40 Proposed Procedures p Trochanteric Femoral Nail(Right) - Milton Quesada DO
--- NOTE | 2024-02-25 09:04 | PC.NURSE ---
This nurse spoke with Michael Jaramillo to see if he had a guardian to consent for surgery. At first they said his brother was his guardian, then they said pt is his own guardian.
[2024-02-25] MEDS: lithium carbonate 300 mg Capsule PO (09:06)
[2024-02-25] MEDS: sodium chloride 0.9% 1,000 ML 75 ML IV (09:06)
[2024-02-25] MEDS: escitalopram 10 mg Tablet PO (09:06)
--- NOTE | 2024-02-25 10:41 | ANES.PREANE2 ---
Pre-Anesthetic Assessment Height/Weight: Height 1.6 m Weight 56.79 kg Temp Pulse Resp BP Pulse Ox O2 Del Method 98.1 F 69 16 102/60 95 Room Air 02/25/24 10:02/25/24 10:02/25/24 10:02/25/24 10:02/25/24 10:02/25/24 10: Operation Date: 02/25/24 12:40 Proposed Procedures p Trochanteric Femoral Nail(Right) - Milton Quesada, DO Familial anesthetic complications: None Was Beta Kvng taken within 24 hours: Yes Was Clonidine taken within 24 hours: N/A Last intake: Intake Last Liquid Date 02/24/24 Last Solid Date 02/24/24 Social Tobacco and No alcohol Exam alert, oriented x 3, clear to auscultation bilaterally and regular rate & rhythm Airway Mallampati: Class II Dentition: other (no teeth) Pulmonary Chronic Obstructive Pulmonary Disease Neuropsych Dementia lewy body disease parkinson's disease Anesthetic Plan ASA status: 3 Anesthesia: General Risk of > 500 ml blood loss (7ml/kg in children): No Medications/Allergies Home Medications Medication Instructions Recorded Confirmed Last Taken Type escitalopram oxalate 10 mg tablet 10 mg PO DAILY@12/28/19 02/24/24 01/05/23 History (Lexapro) loratadine 10 mg tablet 10 mg PO DAILY@12/28/19 02/24/24 01/05/23 History omeprazole 40 mg capsule,delayed 40 mg PO BID@12/28/19 02/24/24 01/06/23 05:00 History release tamsulosin 0.4 mg capsule (Flomax) 0.4 mg PO BEDTIME@12/28/19 02/24/24 01/05/23 History albuterol sulfate 2.5 mg/3 mL 2.5 mg inhalation Q6H PRN 01/06/23 02/24/24 Unknown History (0.083 %) solution for nebulization Shortness Of Breath carbidopa 25 mg-levodopa 100 mg 1 tab PO TID 01/06/23 02/24/24 01/05/23 History tablet (Sinemet) fluticasone 250 mcg-salmeterol 50 1 inh inhalation BID@01/06/23 02/24/24 01/05/23 History mcg/dose blistr powdr for inhalation (Advair Diskus) lithium carbonate 300 mg capsule 300 mg PO DAILY@08 01/06/23 02/24/24 01/05/23 History tiotropium bromide 18 mcg capsule 1 cap inhalation DAILY@01/06/23 02/24/24 01/06/23 History with inhalation device (Spiriva with HandiHaler) risperidone 0.5 mg tablet 0.5 mg PO DAILY 12/08/23 02/24/24 Unknown History (Risperdal) trihexyphenidyl 2 mg tablet 2 mg PO TID #90 tabs 12/08/23 02/24/24 Unknown Rx ferrous sulfate 325 mg (65 mg 325 mg PO .QOD 02/24/24 02/24/24 Unknown History iron) tablet fluticasone propionate 50 1 spray intranasal BID 02/24/24 02/24/24 Unknown History mcg/actuation nasal spray,suspension (Flonase Allergy Relief) polyethylene glycol 3350 17 See Rx Instructions .Route .COMPLEX 02/24/24 02/24/24 Unknown History gram/dose oral powder (Miralax) propranolol 10 mg tablet 10 mg PO BID 02/24/24 02/24/24 Unknown History Allergies Allergy/AdvReac Type Severity Reaction Status Date / Time No Known Allergies Allergy Verified 12/08/23 09:44 Current Medications Generic Name Dose Route Start Last Admin Trade Name Freq PRN Reason Stop Dose Admin Acetaminophen 650 mg 02/24/24 06:41 02/24/24 21:26 Acetaminophen 325 Mg Tablet PO 650 mg Q6H PRN Administration Mild/Mod Pain Or Temp >/= 101 Ceftriaxone Sodium 1,000 mg 02/24/24 06:41 02/25/24 05:46 Ceftriaxone 1,000 Mg Sdv IVP 1,000 mg Q24H KAITLYNN Administration Protocol Escitalopram Oxalate 10 mg 02/24/24 08:00 02/25/24 09:06 Escitalopram 10 Mg Tablet PO 10 mg DAILY@08 KAITLYNN Administration Sodium Chloride 1,000 mls @ 75 mls/hr 02/24/24 06:41 02/25/24 09:06 Sodium Chloride 0.9% IV 75 mls/hr .[id number] KAITLYNN Administration [place] Carbonate 300 mg 02/24/24 08:00 02/25/24 09:06 [place] Carbonate 300 Mg Capsule PO 300 mg DAILY@08 KAITLYNN Administration Pantoprazole Sodium 40 mg 02/24/24 06:41 02/25/24 05:47 Pantoprazole 40 Mg Sdv IVP 40 mg Q24H KAITLYNN Administration Propranolol HCl 20 mg 02/24/24 08:00 02/25/24 08:19 Propranolol 20 Mg Tablet PO Not Given BID@08,20 KAITLYNN Risperidone 0.5 mg 02/24/24 21:00 02/24/24 20:22 Risperidone 0.25 Mg Tablet PO 0.5 mg BEDTIME KAITLYNN Administration Tamsulosin HCl 0.4 mg 02/24/24 20:00 02/24/24 20:22 Tamsulosin 0.4 Mg Capsule PO 0.4 mg BEDTIME@20 KAITLYNN Administration Trihexyphenidyl HCl 2 mg 02/24/24 09:00 02/25/24 09:06 Trihexyphenidyl 2 Mg Tablet PO 2 mg TID KAITLYNN Administration PFSH Anesthesia Medical History COPD (chronic obstructive pulmonary disease) Learning disability Bipolar affective Lewy body dementia Schizophrenia Family History Grandmother Diabetes Grandfather Cancer Social History Smoking and tobacco/nicotine status: current every day tobacco/nicotine user Quit status (tobacco/nicotine): not considering quitting Alcohol intake: never Substance/Drug Use: never Housing: Assisted Living Facility Marital status: Single Current gender identity: Male Data Anesthesia 02/24/24 05:27 02/24/24 05:27 Short CBC 02/24/24 Range/Units 05:27 WBC 7.03 (3.29-11.43) 10^3/uL Hgb 11.00 L (11.27-16.99) g/dL Hct 35.9 L (37-53) % MCV 97.6 (82-101) fl Plt Count 180 (157-399) 10^3/cmm Neut % (Auto) 53.9 % Neut # (Auto) 3.79 (1.8-7.7) 10^3/uL BMP 02/24/24 05:27 Sodium 138 Potassium 4.7 Chloride 105 Carbon Dioxide 26 BUN 24 H Creatinine 1.3 H Glucose 108 Calcium 8.8 Cardiac Enzymes 02/24/24 02/24/24 02/24/24 Range/Units 05:27 07:07 11:43 Troponin T Baseline 11 (0-15) ng/L Troponin T 120 Minute 11.95 (0-15) ng/L Delta Troponin T 0.95 (0-10) ABS# Troponin T Hi Sens 6Hr 11.13 (0-15) ng/L Troponin T Hi Sens 6Hr Delta 0.13 (0-12) ng/L Liver Function 02/24/24 Range/Units 05:27 Total Bilirubin 0.3 (0.15-1.2) mg/dL AST 16 (0-40) U/L ALT < 5 (0-41) U/L Alkaline Phosphatase 112 (40-130) U/L Albumin 3.6 (3.5-5.2) g/dL Urine 02/24/24 Range/Units 06:00 Urine Color Yellow (Yellow) Urine Appearance Cloudy A (CLEAR) Urine pH 6.5 (5-7) Ur Specific [place] 1.007 (1.005-1.030) Urine Protein Negative (Negative) Urine Glucose (UA) Negative (Normal) Urine Ketones Negative (Negative) Urine Nitrate Positive A (Negative) Urine Bilirubin Negative (Negative) Ur Leukocyte Esterase 2+ A (Negative) Urine RBC 0-2 (0-2) /hpf Urine WBC 21-50 H (0-5) /hpf Coags 02/24/24 05:27 PT 12.70 INR 0.92 APTT 34.7 C-Reactive Protein 3.0 Microbiology 02/24/24 06:00 Urine Culture - Preliminary Urine,Clean Catch Gram Negative Rods Cardiac Studies: No Data to Display
[2024-02-25] MEDS: sodium chloride 0.9% 1,000 ML 30 ML IV (10:42)
--- NOTE | 2024-02-25 12:01 | P.PN_ITS ---
Subjective 2 Subjective: Seen today. Laying in bed. Denies having any pain at this time in fact laying on his right hip. Going for surgery today. Vitals/I&O/Wt Last Vital Signs Temp 98.1 F 02/25/24 10:25 Pulse 69 02/25/24 10:25 Resp 16 02/25/24 10:25 BP 102/60 02/25/24 10:25 Pulse Ox 95 02/25/24 10:25 O2 Del Method Room Air 02/25/24 10:25 02/24/24 02/25/24 02/25/24 22:59 06:59 14:59 Intake Total 1999 / 0 873.75 / 873.75 Output Total 1000 / 1000 500 / 1500 Balance 1000 / 1120 -500 / 620 873.75 / 873.75 Weight last 48 hrs Weight 56.79 kg Weight 56.699 kg Weight 59.874 kg Physical Exam 2 Const: COMMON NORMALS: no acute distress and patient oriented x3 HENMT: COMMON NORMALS: normocephalic HEAD & SCALP: normocephalic Resp: COMMON NORMALS: normal respiratory effort, No retractions, No use of accessory muscles and clear to auscultation bilaterally AUSCULTATION: clear to auscultation bilaterally Cardio: COMMON NORMALS: regular rate, regular rhythm, S1 normal heart sound present and S2 normal heart sound present RATE: regular rate RHYTHM: r egular rhythm HEART SOUNDS: S1 normal heart sound present and S2 normal heart sound present GI: COMMON NORMALS: Normal to inspection, nondistended, normoactive bowel sounds present, Soft to palpation and non-tender PALPATION: Yes Soft to palpation Extremity: COMMON NORMALS: no calf tenderness and no pedal edema NARRATIVE EXTREMITY EXAM: Right lower extremity externally rotated, displaced outwards Neuro: COMMON NORMALS: patient oriented x3 Psych: COMMON NORMALS: mental status grossly normal Skin: NARRATIVE SKIN EXAM: Chest wall deformity left chest Urinary Catheter Management: Nelson: Cath Placed During This Visit: yes Reason for Continuing Indwelling Catheter: Other Urinary Catheter Date of Insertion: 02/24/24 Urinary Catheter Time of Insertion: 05:57 Data 02/24/24 05:27 02/24/24 05:27 Micro: Microbiology 02/24/24 06:00 Urine Culture - Preliminary Urine,Clean Catch Gram Negative Rods A&P Assessment and plan (1) Closed hip fracture: Qualifiers: Encounter type: initial encounter Laterality: right Qualified Code(s): S72.001A - Fracture of unspecified part of neck of right femur, initial encounter for closed fracture (2) Parkinson's Disease: Qualifiers: Dyskinesia presence: with dyskinesia Fluctuating manifestations: with fluctuating manifestations Qualified Code(s): G20.B2 - Parkinson's disease with dyskinesia, with fluctuations (3) Learning disability: (4) Lewy body dementia: (5) Altered mental status: (6) UTI (urinary tract infection): Plan Right hip fracture ? N.p.o.. Going for intramedullary nail today with Dr. Quesada. Orthopedic consult appreciated. ? Dr. Quesada consulted by ER ? Morphine for pain control ? Zofran for nausea ? SCDs for DVT prophylaxis, Lovenox on hold as there is plans on surgery Altered mental status?improved. ? Does have schizophrenia, bipolar disorder, Lewy body dementia ? Baseline mentation unknown, will have to reach out to custodial in the morning ? Neurochecks ? CT head negative for any acute stroke. UTI ? Rocephin PT OT after surgical repair of fracture. Most likely will need custodial at discharge. Discussed with case management. Full code Attestations 2 Medical Necessity Statement*: Hip fracture. Going for surgery today. Diagnoses Closed fracture of right hip, initial encounter S72.001A Encounter type: initial encounter Laterality: right Parkinson's disease with dyskinesia and fluctuating manifestations G20.B2 Dyskinesia presence: with dyskinesia Fluctuating manifestations: with fluctuating manifestations Learning disability F81.9 Lewy body dementia G31.83; F02.80 Altered mental status R41.82 UTI (urinary tract infection) N39.0
[2024-02-25] MEDS: ceFAZolin 2,000 mg SDV 2000 MG IVP ×2 (12:51→21:02)
--- NOTE | 2024-02-25 13:36 | P.OP_ITS ---
Operative Report Date of procedure: February 25, 2024 Pre-op diagnosis: Right intertrochanteric hip fracture Post-op diagnosis: same Procedure done: Right intramedullary hip nail with a long nail Surgeon: Milton Quesada DO Estimated blood loss (mL): 50 Procedure: Right intramedullary hip nail with a long nail Patient brought the op suite after an [place] was placed on the [place] table all areas impingement well-padded. Fracture was reduced with traction and rotation. This confirmed him C-arm guidance. AP lateral fluoroscopy. Next attention was brought to make the skin incision approximately greater trochanter. Next tension was brought to making skin incision approximately greater trochanter. Starting pin was inserted followed by reaming the proximal femur. The nail from [employer] was inserted. This is a long nail. Once the nail was inserted the nail was brought down and the probe position and the femoral alignment to the femoral head. The guidewire was placed in the center center position into the femoral head on the AP lateral fluoroscopy. A wire was then inserted. The reamer for the lag screw was placed in the leg screw was placed as a 95 mm lag screw. Will lag screws locked into the nail. Distention brought to placing the distal locking screw. This was done present through the jig. The canal was drilled and then a 40 mm screw was placed. Wounds were irrigated AP lateral fluoroscopy ensured that the fracture and hardware in good position. Wounds were irrigated and closed with Vicryl and jaqui. Sterile dressings applied patient transferred to the PACU in stable condition.
--- NOTE | 2024-02-25 14:05 | ANE.PACU2 ---
Inpatient post-anesthesia follow up: Airway intact: Yes Vital signs: Temperature 97.8 F Pulse Rate 86 Respiratory Rate 16 Blood Pressure 96/60 Pulse Oximetry 98 Oxygen Delivery Me thod Room Air Oxygen Flow Rate 6 Fraction of Inspir ed Oxygen Hydration adequate: Yes Nausea and vomiting: No Pain level: 1 Mental status: Baseline
--- NOTE | 2024-02-25 14:35 | PC.PT ---
Demarcus attempted. Pt on hold per nursing due to still waking up from surgery. Nsg stated to attempt in the AM tomorrow. Will try tomorrow.
[2024-02-25] MEDS: tamsulosin 0.4 mg Capsule PO (21:02)
[2024-02-25] MEDS: risperiDONE 0.25 mg Tablet 0.5 MG PO (21:03)
[2024-02-26] VITALS (18 sets, daily range): BP systolic 87–119; BP diastolic 53–69; PULSE 66–83; RESP 14–20; TEMP 36.4–37.1; O2SAT 95–99
[2024-02-26 03:18] LABS: Basophils % 0.1 %; Eosinophils % 0.1 %; Hematocrit 23.1 % (37-53); Lymphocytes % 10.8 %; Mean Corpuscular HGB Conc 30.3 g/dL (30-55); Mean Corpuscular Hemoglobin 30.7 pg (27-33); Mean Corpuscular Volume 101.3 fl (82-101); Mean Platelet Volume 11.8 fL (7.4-10.4); Monocytes # 1.5 10^3/uL (0.2-0.9); Monocytes % 15.8 %; Neutrophils # 6.94 10^3/uL (1.8-7.7); Neutrophils % 72.8 %; Nucleated Red Blood Cells % 0 %; Platelet Count 127 10^3/cmm (157-399); Red Blood Count 2.28 10^6/uL (3.85-5.65); Red Cell Distribution Width 13.2 % (12.1-15.1); White Blood Count 9.54 10^3/uL (3.29-11.43)
[2024-02-26 03:30] LABS: Anion Gap 11.5 (5-19); Blood Urea Nitrogen 22 mg/dL (8-23); Calcium 8.4 mg/dL (8.5-10.5); Carbon Dioxide 22 mmol/L (22-29); Chloride 106 mmol/L (98-107); Creatinine Clr Calc Pharmacy 42.7736; Glucose 122 mg/dL (65-115); Osmolality Calculated 285 mOsm/kg (285-295); Potassium 4.5 mmol/L (3.5-5.1); Sodium 135 mmol/L (136-145)
[2024-02-26] MEDS: ceFAZolin 2,000 mg SDV 2000 MG IVP ×2 (05:52→12:09)
[2024-02-26] MEDS: pantoprazole 40 mg SDV IVP (05:53)
[2024-02-26] MEDS: cefTRIAXone 1,000 mg SDV 1000 MG IVP (05:53)
[2024-02-26] MEDS: lithium carbonate 300 mg Capsule PO (07:42)
[2024-02-26] MEDS: escitalopram 10 mg Tablet PO (07:42)
[2024-02-26] MEDS: sodium chloride 0.9% 1,000 ML 75 ML IV (07:43)
[2024-02-26] MEDS: acetaminophen 325 mg Tablet 650 MG PO (12:09)
--- NOTE | 2024-02-26 12:25 | P.PN_ITS ---
Subjective 2 Subjective: Patient is in bed comfortable. No complaints Vitals/I&O/Wt Last Vital Signs Temp 98.2 F 02/26/24 11:55 Pulse 81 02/26/24 11:55 Resp 16 02/26/24 11:55 BP 106/68 02/26/24 11:55 Pulse Ox 97 02/26/24 11:55 O2 Del Method Room Air 02/26/24 07:31 O2 Flow Rate 6 02/25/24 13:45 02/25/24 02/26/24 02/26/24 22:59 06:59 14:59 Intake Total 890 / 2671.25 510 / 3181.25 1202.50 / 1202.50 Output Total 750 / 760 650 / 1410 Balance 140 / 1911.25 -140 / 1771.25 1202.50 / 1202.50 Weight last 48 hrs Weight 134 lb 1.6 oz Weight 125 lb 3.2 oz Physical Exam 2 Narrative: Pain controlled sitting up in bed with therapies about to work with him. Urinary Catheter Management: Nelson: Cath Placed During This Visit: yes, but has since been removed by the nurse Reason for Continuing Indwelling Catheter: Decision to DC Catheter Urinary Catheter Date of Insertion: 02/24/24 Urinary Catheter Time of Insertion: 05:57 Date Urinary Catheter Removed: 02/26/24 Time Urinary Catheter Discontinued: 06:34 Data 02/26/24 02:05 02/26/24 02:05 Micro: Microbiology 02/24/24 06:00 Urine Culture - Final Urine,Clean Catch Escherichia coli A&P Assessment and plan (1) Closed hip fracture: Postop day #1 right hip IM nail. Up with therapy Eliquis for DVT prophylaxis Weight-bear as tolerated Qualifiers: Encounter type: initial encounter Laterality: right Qualified Code(s): S72.001A - Fracture of unspecified part of neck of right femur, initial encounter for closed fracture Attestations 2 Medical Necessity Statement*: Per primary service Coding Level of Care Code Acute Code for Chg Fwd Diagnoses Closed fracture of right hip, initial encounter S72.001A Encounter type: initial encounter Laterality: right
--- NOTE | 2024-02-26 14:22 | PM.PN ---
Subjective Subjective: Hemoglobin 7.0 this morning. 1 unit of blood was ordered overnight. He says he is having some pain in his right leg. Vitals/I&O/Wt Last Vital Signs Temp 98.2 F 02/26/24 11:55 Pulse 81 02/26/24 11:55 Resp 16 02/26/24 11:55 BP 106/68 02/26/24 11:55 Pulse Ox 97 02/26/24 11:55 O2 Del Method Room Air 02/26/24 07:31 O2 Flow Rate 6 02/25/24 13:45 02/25/24 02/26/24 02/26/24 22:59 06:59 14:59 Intake Total 890 / 2671.25 510 / 3181.25 1442.50 / 1442.50 Output Total 750 / 760 650 / 1410 Balance 140 / 1911.25 -140 / 1771.25 1442.50 / 1442.50 Weight last 48 hrs Weight 60.827 kg Weight 56.79 kg Physical Exam Const: COMMON NORMALS: no acute distress and patient oriented x3 HENMT: COMMON NORMALS: normocephalic HEAD & SCALP: normocephalic Resp: COMMON NORMALS: normal respiratory effort, No retractions, No use of accessory muscles and clear to auscultation bilaterally AUSCULTATION: clear to auscultation bilaterally Cardio: COMMON NORMALS: regular rate, regular rhythm, S1 normal heart sound present and S2 normal heart sound present RATE: regular rate RHYTHM: regular rhythm HEART SOUNDS: S1 normal heart sound present and S2 normal heart sound present GI: COMMON NORMALS: Normal to inspection, nondistended, normoactive bowel sounds present, Soft to palpation and non-tender PALPATION: Yes Soft to palpation Extremity: COMMON NORMALS: no calf tenderness and no pedal edema NARRATIVE EXTREMITY EXAM: Right leg surgical bandage site appears clean. Neuro: COMMON NORMALS: patient oriented x3 Psych: COMMON NORMALS: mental status grossly normal Skin: NARRATIVE SKIN EXAM: Chest wall deformity left chest Urinary Catheter Management: Nelson: Cath Placed During This Visit: yes, but has since been removed by the nurse Reason for Continuing Indwelling Catheter: Decision to DC Catheter Urinary Catheter Date of Insertion: 02/24/24 Urinary Catheter Time of Insertion: 05:57 Date Urinary Catheter Removed: 02/26/24 Time Urinary Catheter Discontinued: 06:34 Data 02/26/24 02:05 02/26/24 02:05 Micro: Microbiology 02/24/24 06:00 Urine Culture - Final Urine,Clean Catch Escherichia coli A&P Assessment and plan (1) Closed hip fracture: Qualifiers: Encounter type: initial encounter Laterality: right Qualified Code(s): S72.001A - Fracture of unspecified part of neck of right femur, initial encounter for closed fracture (2) Parkinson's Disease: Qualifiers: Dyskinesia presence: with dyskinesia Fluctuating manifestations: with fluctuating manifestations Qualified Code(s): G20.B2 - Parkinson's disease with dyskinesia, with fluctuations (3) Learning disability: (4) Lewy body dementia: (5) Altered mental status: (6) UTI (urinary tract infection): Plan Right hip fracture ? N.p.o.. Going for intramedullary nail today with Dr. Quesada. Orthopedic consult appreciated. ? Dr. Quesada consulted by ER ? Morphine for pain control ? Zofran for nausea ? SCDs for DVT prophylaxis, Lovenox on hold as there is plans on surgery Altered mental status?improved. ? Does have schizophrenia, bipolar disorder, Lewy body dementia ? Baseline mentation unknown, will have to reach out to long term in the morning ? Neurochecks ? CT head negative for any acute stroke. UTI ? Rocephin PT OT after surgical repair of fracture. Most likely will need long term at discharge. Discussed with case management. Full code 02/25 Underwent intramedullary nail 02/24 Continue Rocephin for UTI. Acute blood loss anemia postop: Hemoglobin 7. 1 unit packed RBC ordered. Will recheck CBC every 12 hours ? CT head negative PT OT today. Patient will most likely need long term at discharge case management aware. Continue morphine for breakthrough pain. Encourage use of hydrocodone as opposed to IV morphine. Attestations Medical Necessity Statement*: Hip fracture Diagnoses Closed fracture of right hip, initial encounter S72.001A Encounter type: initial encounter Laterality: right Parkinson's disease with dyskinesia and fluctuating manifestations G20.B2 Dyskinesia presence: with dyskinesia Fluctuating manifestations: with fluctuating manifestations Learning disability F81.9 Lewy body dementia G31.83; F02.80 Altered mental status R41.82 UTI (urinary tract infection) N39.0
[2024-02-26 15:18] LABS: Basophils % 0.1 %; Eosinophils # 0.1 10^3/uL (0.0-0.8); Eosinophils % 0.6 %; Hematocrit 24.3 % (37-53); Lymphocytes # 1.2 10^3/uL (0.8-4.8); Mean Corpuscular HGB Conc 31.7 g/dL (30-55); Mean Corpuscular Hemoglobin 30.7 pg (27-33); Mean Corpuscular Volume 96.8 fl (82-101); Mean Platelet Volume 11.4 fL (7.4-10.4); Monocytes # 1.6 10^3/uL (0.2-0.9); Neutrophils # 7.59 10^3/uL (1.8-7.7); Neutrophils % 72.7 %; Nucleated Red Blood Cells % 0 %; Platelet Count 134 10^3/cmm (157-399); Red Blood Count 2.51 10^6/uL (3.85-5.65); Red Cell Distribution Width 14.4 % (12.1-15.1); White Blood Count 10.44 10^3/uL (3.29-11.43)
[2024-02-26] MEDS: risperiDONE 0.25 mg Tablet 0.5 MG PO (20:44)
[2024-02-26] MEDS: tamsulosin 0.4 mg Capsule PO (20:44)
[2024-02-26 21:33] LABS: Hematocrit 28.5 % (37-53)
[2024-02-27] VITALS: BP 117/79; PULSE 69; RESP 18; TEMP 37; O2SAT 95
[2024-02-27] MEDS: sodium chloride 0.9% 1,000 ML 75 ML IV ×2 (00:21→13:07)
[2024-02-27] MEDS: acetaminophen 325 mg Tablet 650 MG PO ×2 (00:24→17:09)
[2024-02-27 04:00] VITALS: BP 119/81; PULSE 78; RESP 18; TEMP 37.1; O2SAT 95
[2024-02-27 04:30] LABS: Basophils % 0.2 %; Eosinophils # 0.3 10^3/uL (0.0-0.8); Eosinophils % 2.9 %; Hematocrit 28.1 % (37-53); Lymphocytes # 1.6 10^3/uL (0.8-4.8); Lymphocytes % 17.6 %; Mean Corpuscular HGB Conc 32.4 g/dL (30-55); Mean Corpuscular Hemoglobin 30.5 pg (27-33); Mean Corpuscular Volume 94.3 fl (82-101); Mean Platelet Volume 12.1 fL (7.4-10.4); Monocytes # 1.2 10^3/uL (0.2-0.9); Monocytes % 13.7 %; Neutrophils # 5.87 10^3/uL (1.8-7.7); Neutrophils % 65.2 %; Nucleated Red Blood Cells % 0.2 %; Platelet Count 148 10^3/cmm (157-399); Red Blood Count 2.98 10^6/uL (3.85-5.65); Red Cell Distribution Width 14.5 % (12.1-15.1); White Blood Count 9.02 10^3/uL (3.29-11.43)
[2024-02-27 04:48] LABS: Anion Gap 12.9 (5-19); Blood Urea Nitrogen 17 mg/dL (8-23); Calcium 8.3 mg/dL (8.5-10.5); Carbon Dioxide 18 mmol/L (22-29); Chloride 107 mmol/L (98-107); Creatinine Clr Calc Pharmacy 47.9874; Glucose 103 mg/dL (65-115); Osmolality Calculated 280 mOsm/kg (285-295); Potassium 3.9 mmol/L (3.5-5.1); Sodium 134 mmol/L (136-145)
[2024-02-27] MEDS: pantoprazole 40 mg SDV IVP (05:43)
[2024-02-27] MEDS: cefTRIAXone 1,000 mg SDV 1000 MG IVP (05:43)
[2024-02-27 08:00] VITALS: BP 107/62; PULSE 83; RESP 18; TEMP 36.8; O2SAT 90
[2024-02-27] MEDS: escitalopram 10 mg Tablet PO (08:13)
[2024-02-27] MEDS: lithium carbonate 300 mg Capsule PO (08:14)
--- NOTE | 2024-02-27 11:43 | P.PN_ITS ---
Subjective 2 Subjective: Patient doing well no complaints Vitals/I&O/Wt Last Vital Signs Temp 98.2 F 02/27/24 08:00 Pulse 83 02/27/24 08:00 Resp 18 02/27/24 08:00 BP 107/62 02/27/24 08:00 Pulse Ox 90 02/27/24 08:00 O2 Del Method Room Air 02/27/24 08:00 O2 Flow Rate 6 02/25/24 13:45 02/26/24 02/27/24 02/27/24 22:59 06:59 14:59 Intake Total 1190 / 2632.50 1285.00 / 3917.50 Output Total 1500 / 1500 900 / 2400 Balance -310 / 1132.50 385.00 / 1517.50 Weight last 48 hrs Weight 134 lb 1.6 oz Weight 134 lb 1.6 oz Physical Exam 2 Narrative: Wound clean dry intact pain controlled laying in bed. Urinary Catheter Management: Nelson: Cath Placed During This Visit: yes, but has since been removed by the nurse Reason for Continuing Indwelling Catheter: Acute Urinary Retention or Obstruction Urinary Catheter Date of Insertion: 02/26/24 Urinary Catheter Time of Insertion: 18:43 Date Urinary Catheter Removed: 02/26/24 Time Urinary Catheter Discontinued: 06:34 Data 02/27/24 03:27 02/27/24 03:27 Micro: Microbiology 02/24/24 06:00 Urine Culture - Final Urine,Clean Catch Escherichia coli A&P Assessment and plan (1) Closed hip fracture: Status post hip nail doing well no complaints okay to discharge from orthopedic standpoint Follow-up in clinic in 2 weeks Qualifiers: Encounter type: initial encounter Laterality: right Qualified Code(s): S72.001A - Fracture of unspecified part of neck of right femur, initial encounter for closed fracture Attestations 2 Medical Necessity Statement*: Per primary service Coding Level of Care Code Acute Code for Chg Fwd Diagnoses Closed fracture of right hip, initial encounter S72.001A Encounter type: initial encounter Laterality: right
[2024-02-27 12:00] VITALS: BP 119/67; PULSE 72; RESP 14; TEMP 36.3; O2SAT 98
--- NOTE | 2024-02-27 12:51 | PM.PN ---
Subjective Subjective: Seen this morning. Awaiting placement. Vitals/I&O/Wt Last Vital Signs Temp 98.2 F 02/27/24 08:00 Pulse 83 02/27/24 08:00 Resp 18 02/27/24 08:00 BP 107/62 02/27/24 08:00 Pulse Ox 90 02/27/24 08:00 O2 Del Method Room Air 02/27/24 08:00 O2 Flow Rate 6 02/25/24 13:45 02/26/24 02/27/24 02/27/24 22:59 06:59 14:59 Intake Total 1190 / 2632.50 1285.00 / 3917.50 Output Total 1500 / 1500 900 / 2400 Balance -310 / 1132.50 385.00 / 1517.50 Weight last 48 hrs Weight 60.827 kg Weight 60.827 kg Physical Exam Const: COMMON NORMALS: no acute distress and patient oriented x3 HENMT: COMMON NORMALS: normocephalic HEAD & SCALP: normocephalic Resp: COMMON NORMALS: normal respiratory effort, No retractions, No use of accessory muscles and clear to auscultation bilaterally AUSCULTATION: clear to auscultation bilaterally Cardio: COMMON NORMALS: regular rate, regular rhythm, S1 normal heart sound present and S2 normal heart sound present RATE: regular rate RHYTHM: regular rhythm HEART SOUNDS: S1 normal heart sound present and S2 normal heart sound present GI: COMMON NORMALS: Normal to inspection, nondistended, normoactive bowel sounds present, Soft to palpation and non-tender PALPATION: Yes Soft to palpation Extremity: COMMON NORMALS: no calf tenderness and no pedal edema NARRATIVE EXTREMITY EXAM: Right leg surgical bandage site appears clean. Neuro: COMMON NORMALS: patient oriented x3 Psych: COMMON NORMALS: mental status grossly normal Skin: NARRATIVE SKIN EXAM: Chest wall deformity left chest Urinary Catheter Management: Nelson: Cath Placed During This Visit: yes, but has since been removed by the nurse Reason for Continuing Indwelling Catheter: Acute Urinary Retention or Obstruction Urinary Catheter Date of Insertion: 02/26/24 Urinary Catheter Time of Insertion: 18:43 Date Urinary Catheter Removed: 02/26/24 Time Urinary Catheter Discontinued: 06:34 Data 02/27/24 03:27 02/27/24 03:27 Micro: Microbiology 02/24/24 06:00 Urine Culture - Final Urine,Clean Catch Escherichia coli A&P Assessment and plan (1) Closed hip fracture: Qualifiers: Encounter type: initial encounter Laterality: right Qualified Code(s): S72.001A - Fracture of unspecified part of neck of right femur, initial encounter for closed fracture (2) Parkinson's Disease: Qualifiers: Dyskinesia presence: with dyskinesia Fluctuating manifestations: with fluctuating manifestations Qualified Code(s): G20.B2 - Parkinson's disease with dyskinesia, with fluctuations (3) Learning disability: (4) Lewy body dementia: (5) Altered mental status: (6) UTI (urinary tract infection): Plan Right hip fracture ? N.p.o.. Going for intramedullary nail today with Dr. Quesada. Orthopedic consult appreciated. ? Dr. Quesada consulted by ER ? Morphine for pain control ? Zofran for nausea ? SCDs for DVT prophylaxis, Lovenox on hold as there is plans on surgery Altered mental status?improved. ? Does have schizophrenia, bipolar disorder, Lewy body dementia ? Baseline mentation unknown, will have to reach out to [facility] in the morning ? Neurochecks ? CT head negative for any acute stroke. UTI ? Rocephin PT OT after surgical repair of fracture. Most likely will need [facility] at discharge. Discussed with case management. Full code 02/26 Underwent intramedullary nail 02/24 Continue Rocephin for UTI. Acute blood loss anemia postop: Patient received 2 units packed RBCs. Hemoglobin 9, 0 today. Recheck CBC in AM. ? CT head negative PT OT today. Will need SNF at discharge. Continue morphine for breakthrough pain. Encourage use of hydrocodone as opposed to IV morphine. Stop IV morphine today. Attestations Medical Necessity Statement*: Hip fracture, awaiting SNF placement. Diagnoses Closed fracture of right hip, initial encounter S72.001A Encounter type: initial encounter Laterality: right Parkinson's disease with dyskinesia and fluctuating manifestations G20.B2 Dyskinesia presence: with dyskinesia Fluctuating manifestations: with fluctuating manifestations Learning disability F81.9 Lewy body dementia G31.83; F02.80 Altered mental status R41.82 UTI (urinary tract infection) N39.0
[2024-02-27 16:00] VITALS: PULSE 60; RESP 19; TEMP 37.2; O2SAT 87
[2024-02-27] MEDS: apixaban 5 mg Tablet 2.5 MG PO (17:08)
[2024-02-27 20:00] VITALS: BP 108/68; PULSE 89; RESP 18; TEMP 36.5; O2SAT 97
[2024-02-27] MEDS: tamsulosin 0.4 mg Capsule PO (21:40)
[2024-02-27] MEDS: risperiDONE 0.25 mg Tablet 0.5 MG PO (21:40)
[2024-02-27] MEDS: propranolol 20 mg Tablet PO (21:40)
[2024-02-28] VITALS: BP 125/76; PULSE 69; RESP 17; TEMP 37.1; O2SAT 95
[2024-02-28] MEDS: sodium chloride 0.9% 1,000 ML 75 ML IV (01:01)
[2024-02-28 04:00] VITALS: BP 138/65; PULSE 70; RESP 17; TEMP 36.8; O2SAT 95
[2024-02-28 05:29] LABS: Basophils % 0.3 %; Eosinophils # 0.3 10^3/uL (0.0-0.8); Eosinophils % 2.9 %; Lymphocytes # 1.2 10^3/uL (0.8-4.8); Lymphocytes % 11.5 %; Mean Corpuscular HGB Conc 32.1 g/dL (30-55); Mean Corpuscular Hemoglobin 31.1 pg (27-33); Mean Corpuscular Volume 96.9 fl (82-101); Mean Platelet Volume 11.5 fL (7.4-10.4); Monocytes # 1.5 10^3/uL (0.2-0.9); Monocytes % 14.8 %; Neutrophils # 7.15 10^3/uL (1.8-7.7); Neutrophils % 69.7 %; Nucleated Red Blood Cells % 0 %; Platelet Count 157 10^3/cmm (157-399); Red Blood Count 2.89 10^6/uL (3.85-5.65); White Blood Count 10.26 10^3/uL (3.29-11.43)
[2024-02-28 05:40] LABS: Anion Gap 12.5 (5-19); Blood Urea Nitrogen 15 mg/dL (8-23); Calcium 8.5 mg/dL (8.5-10.5); Carbon Dioxide 20 mmol/L (22-29); Chloride 110 mmol/L (98-107); Creatinine Clr Calc Pharmacy 59.7703; Glucose 95 mg/dL (65-115); Magnesium 1.9 mg/dL (1.7-2.3); Osmolality Calculated 287 mOsm/kg (285-295); Potassium 4.5 mmol/L (3.5-5.1); Sodium 138 mmol/L (136-145)
[2024-02-28] MEDS: pantoprazole 40 mg SDV IVP (06:38)
[2024-02-28] MEDS: cefTRIAXone 1,000 mg SDV 1000 MG IVP (06:38)
[2024-02-28 07:33] VITALS: BP 133/78; PULSE 73; RESP 18; TEMP 37.1; O2SAT 95
[2024-02-28] MEDS: propranolol 20 mg Tablet PO ×2 (08:10→22:01)
[2024-02-28] MEDS: escitalopram 10 mg Tablet PO (08:10)
[2024-02-28] MEDS: apixaban 5 mg Tablet 2.5 MG PO ×2 (08:10→18:04)
[2024-02-28] MEDS: lithium carbonate 300 mg Capsule PO (08:10)
[2024-02-28] MEDS: HYDROcodone-acetaminophen 5-325 mg Tablet PO (11:37)
[2024-02-28 12:00] VITALS: BP 90/54; PULSE 68; RESP 20; TEMP 37.2; O2SAT 93
[2024-02-28 13:01] LABS: Estmated Average Glucose 97
[2024-02-28] MEDS: nicotine 14 mg Patch 1 PATCH TRANSDERMA (13:02)
[2024-02-28 13:12] LABS: Iron 19 ug/dL (59-158); Percent Saturation 14.9 % (20-50); Total Iron Binding Capacity 127 mcg/dl; Unsaturated Iron Binding 108 ug/dL (112-347)
[2024-02-28 13:28] LABS: Vitamin B12 430 pg/mL (232-1245)
--- NOTE | 2024-02-28 15:11 | P.PN_ITS ---
Subjective 2 Subjective: Hospital course, labs appreciated. On examination patient laying comfortably in bed. Awake and alert to self, being in hospital, reason of hospital though does have episode of forgetfulness. Denies any nausea, vomiting, headache. States pain is better controlled. Worked poorly with physical therapy today. Episodes of confusion during the day. Vitals/I&O/Wt Last Vital Signs Temp 98.9 F 02/28/24 12:00 Pulse 68 02/28/24 12:00 Resp 20 H 02/28/24 12:00 BP 90/54 02/28/24 12:00 Pulse Ox 93 02/28/24 12:00 O2 Del Method Room Air 02/28/24 07:33 O2 Flow Rate 6 02/25/24 13:45 02/28/24 02/28/24 02/28/24 06:59 14:59 22:59 Intake Total 1000 / 1957.5 1975.25 / 1975.25 Output Total 650 / 3800 675 / 675 Balance 350 / -1842.5 1301.25 / 1301.25 Weight last 48 hrs Weight 63.616 kg Weight 60.827 kg Physical Exam 2 Const: COMMON NORMALS: no acute distress GENERAL APPEARANCE: cooperative NUTRITIONAL APPEARANCE: thin ORIENTATION/CONSCIOUSNESS: Yes awake, Yes oriented to person, Yes oriented to place and Yes Other orientation findings (Forgetful) HENMT: COMMON NORMALS: normocephalic HEAD & SCALP: normocephalic Neck/C-Spine: COMMON NORMALS: no JVD Resp: COMMON NORMALS: normal respiratory effort, No retractions, No use of accessory muscles and clear to auscultation bilaterally AUSCULTATION: clear to auscultation bilaterally Cardio: COMMON NORMALS: no JVD, regular rate, regular rhythm, S1 normal heart sound present and S2 normal heart sound present RATE: regular rate RHYTHM: regular rhythm HEART SOUNDS: S1 normal heart sound present and S2 normal heart sound present GI: COMMON NORMALS: Normal to inspection, nondistended, normoactive bowel sounds present, Soft to palpation and non-tender PALPATION: Yes Soft to palpation Extremity: COMMON NORMALS: no calf tenderness and no pedal edema NARRATIVE EXTREMITY EXAM: Right leg surgical bandage site appears clean. Neuro: SENSORIUM/ORIENTATION: Yes oriented to person and Yes oriented to place OTHER: Alert to person, to place, not to time, can follow commands such as smiling for me, squeezing my hands with his upper bilateral upper extremities, able to wiggle bilateral toes, right foot is displaced outwards Psych: COMMON NORMALS: mental status grossly normal Skin: NARRATIVE SKIN EXAM: Chest wall deformity left chest Urinary Catheter Management: Nelson: Cath Placed During This Visit: yes, but has since been removed by the nurse Reason for Continuing Indwelling Catheter: Acute Urinary Retention or Obstruction Urinary Catheter Date of Insertion: 02/26/24 Urinary Catheter Time of Insertion: 18:43 Date Urinary Catheter Removed: 02/26/24 Time Urinary Catheter Discontinued: 06:34 Data 02/28/24 04:21 02/28/24 04:21 A&P Assessment and plan (1) Closed hip fracture: Qualifiers: Encounter type: initial encounter Laterality: right Qualified Code(s): S72.001A - Fracture of unspecified part of neck of right femur, initial encounter for closed fracture (2) UTI (urinary tract infection): (3) Altered mental status: (4) Parkinson's Disease: Qualifiers: Dyskinesia presence: with dyskinesia Fluctuating manifestations: with fluctuating manifestations Qualified Code(s): G20.B2 - Parkinson's disease with dyskinesia, with fluctuations (5) Learning disability: (6) Lewy body dementia: (7) Postoperative anemia: Plan Right hip fracture Appreciate orthopedic recommendations. Postoperative. Continue with physical therapy. Monitor hemoglobin. Continue anticoagulation as per surgical team with Eliquis 2.5 mg twice daily. Pain management with hydrocodone 5 mg every 6 hours as needed. Anemia: Hemoglobin stable. Monitor hemoglobin daily. Post 2 unit of blood transfusion. Right hip slightly more swollen than the left. As hemoglobin is remaining stable for now we will hold off on any further workup. Altered mental status?improved. Does have schizophrenia, bipolar disorder, Lewy body dementia Baseline mentation unknown, will have to reach out to intermediate in the morning Fall precaution. Sitter if needed. Continue with home dose of lithium, Lexapro. Check lithium level in AM. Start on nicotine patch. UTI: Urine culture growing E. coli. Appreciate sensitivity. Continue with ceftriaxone to finish a 5 to 7-day course. Urinary retention: Continue with home dose of Flomax. Continue with Nelson catheterization for now. Went to follow-up with urology as an outpatient. Discharge plan: Discharge to SNF once available. Case management alerted. Full code GI soft Protonix for PUD prophylaxis Eliquis will be sufficient for DVT prophylaxis Attestations 2 Medical Necessity Statement*: Requires further hospitalization for postoperative care in setting of right hip fracture, post operative anemia in a patient with baseline bipolar disorder while safe discharge planning is sought Diagnoses Closed fracture of right hip, initial encounter S72.001A Encounter type: initial encounter Laterality: right UTI (urinary tract infection) N39.0 Altered mental status R41.82 Parkinson's disease with dyskinesia and fluctuating manifestations G20.B2 Dyskinesia presence: with dyskinesia Fluctuating manifestations: with fluctuating manifestations Learning disability F81.9 Lewy body dementia G31.83; F02.80 Postoperative anemia D64.9
[2024-02-28 16:00] VITALS: BP 115/65; PULSE 60; RESP 16; TEMP 37.2; O2SAT 94
[2024-02-28 20:00] VITALS: BP 115/63; PULSE 65; RESP 18; TEMP 36.7; O2SAT 96
[2024-02-28] MEDS: tamsulosin 0.4 mg Capsule PO (22:01)
[2024-02-28] MEDS: risperiDONE 0.25 mg Tablet 0.5 MG PO (22:04)
[2024-02-29] VITALS: BP 118/72; PULSE 76; RESP 17; TEMP 36.8; O2SAT 95
[2024-02-29 04:00] VITALS: BP 133/55; PULSE 62; RESP 18; TEMP 36.6; O2SAT 95
[2024-02-29 05:41] LABS: Basophils % 0.5 %; Eosinophils # 0.5 10^3/uL (0.0-0.8); Eosinophils % 5.8 %; Hematocrit 28.3 % (37-53); Lymphocytes # 1.6 10^3/uL (0.8-4.8); Lymphocytes % 20.1 %; Mean Corpuscular HGB Conc 31.8 g/dL (30-55); Mean Corpuscular Hemoglobin 30.8 pg (27-33); Mean Corpuscular Volume 96.9 fl (82-101); Mean Platelet Volume 10.7 fL (7.4-10.4); Monocytes # 1.1 10^3/uL (0.2-0.9); Monocytes % 14.5 %; Neutrophils # 4.51 10^3/uL (1.8-7.7); Neutrophils % 58.6 %; Nucleated Red Blood Cells % 0 %; Platelet Count 188 10^3/cmm (157-399); Red Blood Count 2.92 10^6/uL (3.85-5.65); Red Cell Distribution Width 13.9 % (12.1-15.1); White Blood Count 7.71 10^3/uL (3.29-11.43)
[2024-02-29] MEDS: pantoprazole 40 mg SDV IVP (05:46)
[2024-02-29 06:07] LABS: Alanine Aminotransferase 35 U/L (0-41); Albumin Level 2.5 g/dL (3.5-5.2); Alkaline Phosphatase 101 U/L (40-130); Anion Gap 11.3 (5-19); Aspartate Amino Transferase 38 U/L (0-40); Blood Urea Nitrogen 21 mg/dL (8-23); Calcium 8.4 mg/dL (8.5-10.5); Carbon Dioxide 20 mmol/L (22-29); Chloride 113 mmol/L (98-107); Creatinine Clr Calc Pharmacy 53.9879; Globulin 2.6 g/dL (1.3-4.6); Glucose 95 mg/dL (65-115); Osmolality Calculated 293 mOsm/kg (285-295); Potassium 4.3 mmol/L (3.5-5.1); Sodium 140 mmol/L (136-145); Total Bilirubin 0.5 mg/dL (0.15-1.2); Total Protein 5.1 g/dL (6.6-8.7)
[2024-02-29 06:09] LABS: Lithium 0.3 mmol/L (0.6-1.2); Magnesium 1.8 mg/dL (1.7-2.3)
[2024-02-29 06:19] LABS: Folate Level 8.9 ng/mL (4.5-32.2)
[2024-02-29 07:46] VITALS: BP 146/80; PULSE 66; RESP 16; TEMP 36.7; O2SAT 95
--- NOTE | 2024-02-29 07:54 | P.PN_ITS ---
Subjective 2 Subjective: Patient is doing well no complaints this morning Vitals/I&O/Wt Last Vital Signs Temp 98.1 F 02/29/24 07:46 Pulse 66 02/29/24 07:46 Resp 16 02/29/24 07:46 BP 146/80 02/29/24 07:46 Pulse Ox 95 02/29/24 07:46 O2 Del Method Room Air 02/29/24 07:46 O2 Flow Rate 6 02/25/24 13:45 02/28/24 02/29/24 02/29/24 22:59 06:59 14:59 Output Total 1200 / 1875 500 / 2375 Balance -1200 / 101.25 -500 / -398.75 Weight last 48 hrs Weight 141 lb 7 oz Weight 140 lb 4 oz Physical Exam 2 Narrative: Patient is doing well pain is controlled he is currently in bed been up with physical therapy Urinary Catheter Management: Nelson: Cath Placed During This Visit: yes, but has since been removed by the nurse Reason for Continuing Indwelling Catheter: Acute Urinary Retention or Obstruction Urinary Catheter Date of Insertion: 02/26/24 Urinary Catheter Time of Insertion: 18:43 Date Urinary Catheter Removed: 02/26/24 Time Urinary Catheter Discontinued: 06:34 Data 02/29/24 05:04 02/29/24 05:04 A&P Assessment and plan (1) Closed hip fracture: Status post hip nail Okay to discharge from orthopedic standpoint Qualifiers: Encounter type: initial encounter Laterality: right Qualified Code(s): S72.001A - Fracture of unspecified part of neck of right femur, initial encounter for closed fracture Attestations 2 Medical Necessity Statement*: Per primary service Coding Level of Care Code Acute Code for Chg Fwd Diagnoses Closed fracture of right hip, initial encounter S72.001A Encounter type: initial encounter Laterality: right
[2024-02-29] MEDS: apixaban 5 mg Tablet 2.5 MG PO ×2 (08:28→17:44)
[2024-02-29] MEDS: propranolol 20 mg Tablet PO ×2 (08:28→20:34)
[2024-02-29] MEDS: escitalopram 10 mg Tablet PO (08:28)
[2024-02-29] MEDS: lithium carbonate 300 mg Capsule PO (08:28)
[2024-02-29] MEDS: nicotine 14 mg Patch 1 PATCH TRANSDERMA (08:29)
[2024-02-29 11:14] VITALS: BP 114/72; PULSE 63; RESP 16; TEMP 37.1; O2SAT 96
[2024-02-29] MEDS: ferrous gluconate 324 mg Tablet PO ×2 (12:31→17:44)
[2024-02-29] MEDS: acetaminophen 325 mg Tablet 650 MG PO (14:50)
[2024-02-29 16:00] VITALS: BP 119/64; PULSE 65; RESP 16; TEMP 37.1; O2SAT 94
--- NOTE | 2024-02-29 16:20 | PC.OT ---
OT TREATMENT ATTEMPTED; PATIENT SLEEPING SOUNDLY.
--- NOTE | 2024-02-29 16:38 | P.PN_ITS ---
Subjective 2 Subjective: No acute vents overnight. Patient has remained hemodynamically stable and afebrile. Sitting comfortably in bed. Remains on room air. No episodes of agitation. Vitals/I&O/Wt Last Vital Signs Temp 98.7 F 02/29/24 16:00 Pulse 65 02/29/24 16:00 Resp 16 02/29/24 16:00 BP 119/64 02/29/24 16:00 Pulse Ox 94 02/29/24 16:00 O2 Del Method Room Air 02/29/24 16:00 O2 Flow Rate 6 02/25/24 13:45 02/29/24 02/29/24 02/29/24 06:59 14:59 22:59 Intake Total 720 / 720 Output Total 500 / 2375 1000 / 1000 Balance -500 / -398.75 -280 / -280 Weight last 48 hrs Weight 64.155 kg Weight 63.616 kg Physical Exam 2 Const: COMMON NORMALS: no acute distress GENERAL APPEARANCE: cooperative NUTRITIONAL APPEARANCE: thin ORIENTATION/CONSCIOUSNESS: Yes awake, Yes oriented to person, Yes oriented to place and Yes Other orientation findings (Forgetful) HENMT: COMMON NORMALS: normocephalic HEAD & SCALP: normocephalic Neck/C-Spine: COMMON NORMALS: no JVD Resp: COMMON NORMALS: normal respiratory effort, No retractions, No use of accessory muscles and clear to auscultation bilaterally AUSCULTATION: clear to auscultation bilaterally Cardio: COMMON NORMALS: no JVD, regular rate, regular rhythm, S1 normal heart sound present and S2 normal heart sound present RATE: regular rate RHYTHM: regular rhythm HEART SOUNDS: S1 normal heart sound present and S2 normal heart sound present GI: COMMON NORMALS: Normal to inspection, nondistended, normoactive bowel sounds present, Soft to palpation and non-tender PALPATION: Yes Soft to palpation Extremity: COMMON NORMALS: no calf tenderness and no pedal edema NARRATIVE EXTREMITY EXAM: Right leg surgical bandage site appears clean. Neuro: SENSORIUM/ORIENTATION: Yes oriented to person and Yes oriented to place OTHER: Alert to person, to place, not to time, can follow commands such as smiling for me, squeezing my hands with his upper bilateral upper extremities, able to wiggle bilateral toes, right foot is displaced outwards Psych: COMMON NORMALS: mental status grossly normal Skin: NARRATIVE SKIN EXAM: Chest wall deformity left chest Urinary Catheter Management: Nelson: Cath Placed During This Visit: yes, but has since been removed by the nurse Reason for Continuing Indwelling Catheter: Acute Urinary Retention or Obstruction Urinary Catheter Date of Insertion: 02/26/24 Urinary Catheter Time of Insertion: 18:43 Date Urinary Catheter Removed: 02/26/24 Time Urinary Catheter Discontinued: 06:34 Data 02/29/24 05:04 02/29/24 05:04 A&P Assessment and plan (1) Closed hip fracture: Qualifiers: Encounter type: initial encounter Laterality: right Qualified Code(s): S72.001A - Fracture of unspecified part of neck of right femur, initial encounter for closed fracture (2) UTI (urinary tract infection): (3) Altered mental status: (4) Parkinson's Disease: Qualifiers: Dyskinesia presence: with dyskinesia Fluctuating manifestations: with fluctuating manifestations Qualified Code(s): G20.B2 - Parkinson's disease with dyskinesia, with fluctuations (5) Learning disability: (6) Lewy body dementia: (7) Postoperative anemia: Plan Right hip fracture Appreciate orthopedic recommendations. Postoperative. Continue with physical therapy. Monitor hemoglobin. Continue anticoagulation as per surgical team with Eliquis 2.5 mg twice daily. Pain management with hydrocodone 5 mg every 6 hours as needed. Anemia: Hemoglobin stable. Monitor hemoglobin daily. Post 2 unit of blood transfusion. Right hip slightly more swollen than the left. As hemoglobin is remaining stable for now we will hold off on any further workup. Altered mental status?improved. Does have schizophrenia, bipolar disorder, Lewy body dementia Baseline mentation unknown, [facility]. Sitter if needed. Continue with home dose of lithium, Lexapro. Check lithium level in AM. Start on nicotine patch. UTI: Urine culture growing E. coli. Appreciate sensitivity. Continue with ceftriaxone to finish a 5 to 7-day course. Urinary retention: Continue with home dose of Flomax. Continue with [place] catheterization for now. Went to follow-up with urology as an outpatient. Discharge plan: Discharge to SNF once available. Case management alerted. Full code GI soft Protonix for PUD prophylaxis Eliquis will be sufficient for DVT prophylaxis Plan for the day: Hemoglobin stable. Start on iron supplementation twice daily. Continue with current pain control. Physical therapy. Patient finished course of IV antibiotics for UTI. As patient still has Nelson catheter will start on Levaquin to finish extended 3-day course as well. Awaiting level 2 for possible discharge to SNF. Might go to assisted living if does better with physical therapy. Continue with current dose of lithium and Lexapro. Hold off on any further blood work tomorrow. Attestations 2 Medical Necessity Statement*: Requires further hospitalization for postoperative care, post-ORIF while safe discharge planning is sought Diagnoses Closed fracture of right hip, initial encounter S72.001A Encounter type: initial encounter Laterality: right UTI (urinary tract infection) N39.0 Altered mental status R41.82 Parkinson's disease with dyskinesia and fluctuating manifestations G20.B2 Dyskinesia presence: with dyskinesia Fluctuating manifestations: with fluctuating manifestations Learning disability F81.9 Lewy body dementia G31.83; F02.80 Postoperative anemia D64.9
[2024-02-29] MEDS: HYDROcodone-acetaminophen 5-325 mg Tablet 1 TAB PO (19:56)
[2024-02-29 20:00] VITALS: BP 123/69; PULSE 67; RESP 17; TEMP 36.8; O2SAT 96
[2024-02-29 20:30] LABS: Basophils % 0.3 %; Eosinophils # 0.3 10^3/uL (0.0-0.8); Eosinophils % 3.4 %; Hematocrit 29.5 % (37-53); Lymphocytes # 1.6 10^3/uL (0.8-4.8); Mean Corpuscular HGB Conc 31.5 g/dL (30-55); Mean Corpuscular Hemoglobin 30.4 pg (27-33); Mean Corpuscular Volume 96.4 fl (82-101); Mean Platelet Volume 10.2 fL (7.4-10.4); Monocytes # 1.2 10^3/uL (0.2-0.9); Monocytes % 12.5 %; Neutrophils # 6.11 10^3/uL (1.8-7.7); Neutrophils % 66.3 %; Nucleated Red Blood Cells % 0 %; Platelet Count 204 10^3/cmm (157-399); Red Blood Count 3.06 10^6/uL (3.85-5.65); Red Cell Distribution Width 13.7 % (12.1-15.1); White Blood Count 9.22 10^3/uL (3.29-11.43)
[2024-02-29] MEDS: risperiDONE 0.25 mg Tablet 0.5 MG PO (20:34)
[2024-02-29] MEDS: tamsulosin 0.4 mg Capsule PO (20:34)
[2024-02-29 20:43] LABS: INR 0.99 (0.8-1.2)
[2024-02-29 20:44] LABS: Partial Thromboplastin Time 35.1 SECONDS (23.9-36.7)
[2024-02-29 20:48] LABS: Lactate (Lactic Acid level) 1.5 mmol/L (0.5-2.2)
--- NOTE | 2024-02-29 21:14 | CTR_ITS ---
PROCEDURE INFORMATION: Exam: CT Right Lower Extremity, Thigh Exam date and time: 02/29/2024 10:46 PM Age: 73 years old Clinical indication: Swelling, leg or foot; Prior surgery; Surgery date: 3-7 days post-operative; Surgery type: Hip; Additional info: Swelling, erythema TECHNIQUE: Imaging protocol: CT of the right lower extremity without contrast was performed. Exam focused on the thigh. Radiation optimization: All CT scans at this facility use at least one of these dose optimization techniques: automated exposure control; mA and/or kV adjustment per patient size (includes targeted exams where dose is matched to clinical indication); or iterative reconstruction. COMPARISON: CR (LOW EXM, ) 02/24/2024 5:22 AM RADIATION DOSE METRICS: Total DLP (mGy-cm): 636 FINDINGS: Tubes, catheters and devices: Nelson catheter in place. Bones/joints: Small right knee effusion. Highly comminuted intertrochanteric fracture of the right femur s/p fixation with cephalomedullary nail. No evidence of hardware failure. Multiple bony fragments are appreciated throughout the surrounding soft tissues. The right femoroacetabular joint is intact. Soft tissues: Postoperative changes superficial to the right gluteus muscles . Diffuse soft tissue edema throughout the right lower extremity. Prominent swelling of the right iliopsoas muscle. No evidence of developing soft tissue fluid collections. Edema and swelling of the right gluteus minimus and medius muscles. Vasculature: Severe atherosclerotic changes in the imaged arterial system. Stomach: Large stool burden. Extraperitoneal space: Nonspecific free fluid in the presacral space. CT/CT femur RT wo con* [id number] IMPRESSION: 1. Highly comminuted intertrochanteric fracture of the right femur s/p fixation with cephalomedullary nail. 2. Diffuse soft tissue edema throughout the right lower extremity without developing fluid collections.
[2024-03-01] VITALS: BP 123/74; PULSE 57; RESP 16; TEMP 36.8; O2SAT 97
[2024-03-01 04:00] VITALS: BP 150/75; PULSE 65; RESP 18; TEMP 36.7; O2SAT 95
[2024-03-01 05:49] LABS: Basophils % 0.3 %; Eosinophils # 0.4 10^3/uL (0.0-0.8); Eosinophils % 4.6 %; Hematocrit 29.5 % (37-53); Lymphocytes # 1.4 10^3/uL (0.8-4.8); Lymphocytes % 15.4 %; Mean Corpuscular HGB Conc 31.9 g/dL (30-55); Mean Corpuscular Hemoglobin 31.3 pg (27-33); Mean Corpuscular Volume 98.3 fl (82-101); Mean Platelet Volume 10.4 fL (7.4-10.4); Monocytes # 1.3 10^3/uL (0.2-0.9); Monocytes % 13.8 %; Neutrophils # 5.95 10^3/uL (1.8-7.7); Neutrophils % 65.6 %; Nucleated Red Blood Cells % 0 %; Platelet Count 217 10^3/cmm (157-399); Red Cell Distribution Width 13.4 % (12.1-15.1); White Blood Count 9.08 10^3/uL (3.29-11.43)
[2024-03-01 06:09] LABS: Anion Gap 12.3 (5-19); Blood Urea Nitrogen 26 mg/dL (8-23); Calcium 8.6 mg/dL (8.5-10.5); Carbon Dioxide 22 mmol/L (22-29); Chloride 110 mmol/L (98-107); Creatinine Clr Calc Pharmacy 49.0799; Glucose 99 mg/dL (65-115); Osmolality Calculated 295 mOsm/kg (285-295); Potassium 4.3 mmol/L (3.5-5.1); Sodium 140 mmol/L (136-145)
[2024-03-01] MEDS: pantoprazole 40 mg SDV IVP (06:10)
[2024-03-01 07:33] VITALS: BP 133/81; PULSE 72; RESP 17; TEMP 36.9; O2SAT 95
[2024-03-01] MEDS: lithium carbonate 300 mg Capsule PO (08:30)
[2024-03-01] MEDS: propranolol 20 mg Tablet PO ×2 (08:30→20:12)
[2024-03-01] MEDS: ferrous gluconate 324 mg Tablet PO ×2 (08:30→17:10)
[2024-03-01] MEDS: escitalopram 10 mg Tablet PO (08:30)
[2024-03-01] MEDS: apixaban 5 mg Tablet 2.5 MG PO ×2 (08:30→17:11)
[2024-03-01] MEDS: nicotine 14 mg Patch 1 PATCH TRANSDERMA (08:31)
[2024-03-01 11:20] VITALS: BP 107/63; PULSE 60; RESP 20; TEMP 36.9; O2SAT 96
[2024-03-01 15:17] VITALS: BP 110/68; PULSE 63; RESP 16; TEMP 37.1; O2SAT 97
--- NOTE | 2024-03-01 17:17 | P.PN_ITS ---
Subjective 2 Subjective: No acute vents overnight. Continues to work poorly with physical therapy. No acute episodes of agitation. Awake and alert sitting up in chair today. Denies any nausea counting, headache. Asking when can he go back to [place]. Vitals/I&O/Wt Last Vital Signs Temp 98.0 F 03/03/24 15:00 Pulse 64 03/03/24 15:00 Resp 16 03/03/24 15:00 BP 119/63 03/03/24 15:00 Pulse Ox 97 03/03/24 15:00 O2 Del Method Room Air 03/03/24 11:52 O2 Flow Rate 6 02/25/24 13:45 03/03/24 03/03/24 03/03/24 06:59 14:59 22:59 Output Total 2600 / 3475 950 / 950 Balance -2600 / -2755 -950 / -950 Weight last 48 hrs Weight 63.56 kg Weight 63.134 kg Physical Exam 2 Const: COMMON NORMALS: no acute distress GENERAL APPEARANCE: cooperative NUTRITIONAL APPEARANCE: thin ORIENTATION/CONSCIOUSNESS: Yes awake, Yes oriented to person, Yes oriented to place and Yes Other orientation findings (Forgetful) HENMT: COMMON NORMALS: normocephalic HEAD & SCALP: normocephalic Neck/C-Spine: COMMON NORMALS: no JVD Resp: COMMON NORMALS: normal respiratory effort, No retractions, No use of accessory muscles and clear to auscultation bilaterally AUSCULTATION: clear to auscultation bilaterally Cardio: COMMON NORMALS: no JVD, regular rate, regular rhythm, S1 normal heart sound present and S2 normal heart sound present RATE: regular rate RHYTHM: regular rhythm HEART SOUNDS: S1 normal heart sound present and S2 normal heart sound present GI: COMMON NORMALS: Normal to inspection, nondistended, normoactive bowel sounds present, Soft to palpation and non-tender PALPATION: Yes Soft to palpation Extremity: COMMON NORMALS: no calf tenderness and no pedal edema NARRATIVE EXTREMITY EXAM: Right leg surgical bandage site appears clean. Neuro: SENSORIUM/ORIENTATION: Yes oriented to person and Yes oriented to place OTHER: Alert to person, to place, not to time, can follow commands such as smiling for me, squeezing my hands with his upper bilateral upper extremities, able to wiggle bilateral toes, right foot is displaced outwards Psych: COMMON NORMALS: mental status grossly normal Skin: NARRATIVE SKIN EXAM: Chest wall deformity left chest Urinary Catheter Management: Nelson: Cath Placed During This Visit: yes, but has since been removed by the nurse Reason for Continuing Indwelling Catheter: Required Immobilization for Trauma or Surgery or Anesthesia Urinary Catheter Date of Insertion: 02/26/24 Urinary Catheter Time of Insertion: 18:43 Date Urinary Catheter Removed: 02/26/24 Time Urinary Catheter Discontinued: 06:34 Data 03/03/24 04:29 03/03/24 04:29 A&P Assessment and plan (1) Closed hip fracture: Qualifiers: Encounter type: initial encounter Laterality: right Qualified Code(s): S72.001A - Fracture of unspecified part of neck of right femur, initial encounter for closed fracture (2) UTI (urinary tract infection): (3) Altered mental status: (4) Parkinson's Disease: Qualifiers: Dyskinesia presence: with dyskinesia Fluctuating manifestations: with fluctuating manifestations Qualified Code(s): G20.B2 - Parkinson's disease with dyskinesia, with fluctuations (5) Learning disability: (6) Lewy body dementia: (7) Postoperative anemia: Plan Right hip fracture Appreciate orthopedic recommendations. Postoperative. Continue with physical therapy. Monitor hemoglobin. Continue anticoagulation as per surgical team with Eliquis 2.5 mg twice daily. Pain management with hydrocodone 5 mg every 6 hours as needed. Anemia: Hemoglobin stable. Monitor hemoglobin daily. Post 2 unit of blood transfusion. Right hip slightly more swollen than the left. As hemoglobin is remaining stable for now we will hold off on any further workup. Altered mental status?improved. Does have schizophrenia, bipolar disorder, Lewy body dementia Baseline mentation unknown, will have to reach out to [facility] in the morning Fall precaution. Sitter if needed. Continue with home dose of lithium, Lexapro. Check lithium level in AM. Start on nicotine patch. UTI: Urine culture growing E. coli. Appreciate sensitivity. Continue with ceftriaxone to finish a 5 to 7-day course. Urinary retention: Continue with home dose of Flomax. Continue with Nelson catheterization for now. Went to follow-up with urology as an outpatient. Discharge plan: Discharge to SNF once available. Case management alerted. Full code GI soft Protonix for PUD prophylaxis Eliquis will be sufficient for DVT prophylaxis Plan for the day: Monitor hemoglobin daily. Continue with Eliquis 2.5 mg twice daily. No concerns for bleeding related on CT femur. Continue with PT evaluation. Discharge planning: Plan to discharge to SNF as patient cannot be taken care at [place] anymore given his high requirements of PT postoperatively. Awaiting level 2. Attestations 2 Medical Necessity Statement*: Requires further hospitalization while safe discharge planning for post ORIF care Diagnoses Closed fracture of right hip, initial encounter S72.001A Encounter type: initial encounter Laterality: right UTI (urinary tract infection) N39.0 Altered mental status R41.82 Parkinson's disease with dyskinesia and fluctuating manifestations G20.B2 Dyskinesia presence: with dyskinesia Fluctuating manifestations: with fluctuating manifestations Learning disability F81.9 Lewy body dementia G31.83; F02.80 Postoperative anemia D64.9
[2024-03-01 20:00] VITALS: BP 117/66; PULSE 64; RESP 17; TEMP 37.1; O2SAT 96
[2024-03-01] MEDS: risperiDONE 0.25 mg Tablet 0.5 MG PO (20:12)
[2024-03-01] MEDS: tamsulosin 0.4 mg Capsule PO (20:12)
[2024-03-02] VITALS: BP 121/68; PULSE 62; RESP 16; TEMP 36.9; O2SAT 94
[2024-03-02 04:00] VITALS: BP 118/74; PULSE 69; RESP 16; TEMP 36.6; O2SAT 92
[2024-03-02] MEDS: pantoprazole 40 mg SDV IVP (05:40)
[2024-03-02 07:51] VITALS: BP 140/87; PULSE 68; RESP 14; TEMP 36.6; O2SAT 97
[2024-03-02] MEDS: nicotine 14 mg Patch 1 PATCH TRANSDERMA (09:04)
[2024-03-02] MEDS: ferrous gluconate 324 mg Tablet PO ×2 (09:05→17:03)
[2024-03-02] MEDS: apixaban 5 mg Tablet 2.5 MG PO ×2 (09:05→17:03)
[2024-03-02] MEDS: lithium carbonate 300 mg Capsule PO (09:05)
[2024-03-02] MEDS: escitalopram 10 mg Tablet PO (09:05)
[2024-03-02] MEDS: propranolol 20 mg Tablet PO ×2 (09:07→20:19)
[2024-03-02 11:57] VITALS: BP 109/70; PULSE 95; RESP 17; TEMP 36.8; O2SAT 97
--- NOTE | 2024-03-02 14:43 | PC.OT ---
OT TREATMENT ATTEMPTED. PATIENT IS SEATED IN CHAIR AND STATES THAT HE DOES NOT NEED TO PERFORM GROOMING AT THIS TIME. HE STATES THAT HE IS VERY INTERESTED IN THE MOVIE ON TV AND WOULD LIKE TO JUST WATCH THAT. PATIENT REQUESTS MORE WATER WHICH IS GIVEN AND A CIGARETTE. HE IS REMINDED THAT HE IS IN THE HOSPITAL AND CIGARETTES ARE NOT ALLOWED. HE IS ALSO REMINDED THAT HE HAS A NICOTINE PATCH (VISIBLE) ON HIS SHOULDER AND THAT HE IS RECEIVING NICOTINE VIA THIS ROUTE.
--- NOTE | 2024-03-02 15:04 | P.PN_ITS ---
Subjective 2 Subjective: No acute vents overnight. Patient has remained hemodynamically stable and afebrile. Today morning seen sitting in chair. Asking when can he go back to [place]. Continue to work poorly with physical therapy which is most likely in setting of his learning disability Vitals/I&O/Wt Last Vital Signs Temp 98.3 F 03/02/24 11:57 Pulse 95 03/02/24 11:57 Resp 17 03/02/24 11:57 BP 109/70 03/02/24 11:57 Pulse Ox 97 03/02/24 11:57 O2 Del Method Room Air 03/02/24 11:57 O2 Flow Rate 6 02/25/24 13:45 03/02/24 03/02/24 03/02/24 06:59 14:59 22:59 Intake Total 480 / 480 Output Total 600 / 3300 875 / 875 Balance -600 / -2700 -395 / -395 Weight last 48 hrs Weight 63.134 kg Physical Exam 2 Const: COMMON NORMALS: no acute distress GENERAL APPEARANCE: cooperative NUTRITIONAL APPEARANCE: thin ORIENTATION/CONSCIOUSNESS: Yes awake, Yes oriented to person, Yes oriented to place and Yes Other orientation findings (Forgetful) HENMT: COMMON NORMALS: normocephalic HEAD & SCALP: normocephalic Neck/C-Spine: COMMON NORMALS: no JVD Resp: COMMON NORMALS: normal respiratory effort, No retractions, No use of accessory muscles and clear to auscultation bilaterally AUSCULTATION: clear to auscultation bilaterally Cardio: COMMON NORMALS: no JVD, regular rate, regular rhythm, S1 normal heart sound present and S2 normal heart sound present RATE: regular rate RHYTHM: regular rhythm HEART SOUNDS: S1 normal heart sound present and S2 normal heart sound present GI: COMMON NORMALS: Normal to inspection, nondistended, normoactive bowel sounds present, Soft to palpation and non-tender PALPATION: Yes Soft to palpation Extremity: COMMON NORMALS: no calf tenderness and no pedal edema NARRATIVE EXTREMITY EXAM: Right leg surgical bandage site appears clean. Neuro: SENSORIUM/ORIENTATION: Yes oriented to person and Yes oriented to place OTHER: Alert to person, to place, not to time, can follow commands such as smiling for me, squeezing my hands with his upper bilateral upper extremities, able to wiggle bilateral toes, right foot is displaced outwards Psych: COMMON NORMALS: mental status grossly normal Skin: NARRATIVE SKIN EXAM: Chest wall deformity left chest Urinary Catheter Management: Nelson: Cath Placed During This Visit: yes, but has since been removed by the nurse Reason for Continuing Indwelling Catheter: Acute Urinary Retention or Obstruction Urinary Catheter Date of Insertion: 02/26/24 Urinary Catheter Time of Insertion: 18:43 Date Urinary Catheter Removed: 02/26/24 Time Urinary Catheter Discontinued: 06:34 Data 03/01/24 05:29 03/01/24 05:29 A&P Assessment and plan (1) Closed hip fracture: Qualifiers: Encounter type: initial encounter Laterality: right Qualified Code(s): S72.001A - Fracture of unspecified part of neck of right femur, initial encounter for closed fracture (2) UTI (urinary tract infection): (3) Altered mental status: (4) Parkinson's Disease: Qualifiers: Dyskinesia presence: with dyskinesia Fluctuating manifestations: with fluctuating manifestations Qualified Code(s): G20.B2 - Parkinson's disease with dyskinesia, with fluctuations (5) Learning disability: (6) Lewy body dementia: (7) Postoperative anemia: Plan Right hip fracture Appreciate orthopedic recommendations. Postoperative. Continue with physical therapy. Monitor hemoglobin. Continue anticoagulation as per surgical team with Eliquis 2.5 mg twice daily. Pain management with hydrocodone 5 mg every 6 hours as needed. Anemia: Hemoglobin stable. Monitor hemoglobin daily. Post 2 unit of blood transfusion. Right hip slightly more swollen than the left. As hemoglobin is remaining stable for now we will hold off on any further workup. Altered mental status?improved. Does have schizophrenia, bipolar disorder, Lewy body dementia Baseline mentation unknown, will have to reach out to care home in the morning Fall precaution. Sitter if needed. Continue with home dose of lithium, Lexapro. Check lithium level in AM. Start on nicotine patch. UTI: Urine culture growing E. coli. Appreciate sensitivity. Continue with ceftriaxone to finish a 5 to 7-day course. Urinary retention: Continue with home dose of Flomax. Continue with Nelson catheterization for now. Went to follow-up with urology as an outpatient. Discharge plan: Discharge to SNF once available. Case management alerted. Full code GI soft Protonix for PUD prophylaxis Eliquis will be sufficient for DVT prophylaxis Plan for the day: Status quo. Recheck CBC and CMP in AM. Mean artery pressure to be maintained around 65 with goal of blood pressure less than 140/90 mmHg. Continue with anticoagulation with Eliquis 2.5 mg twice daily. Continue with Nelson catheterization. Add finasteride 5 mg daily. Discharge planning: Plan to discharge to SNF as patient cannot be taken care at [facility] anymore given his high requirements of PT postoperatively. Awaiting level 2. Attestations 2 Medical Necessity Statement*: Requires further hospitalization for postoperative care and post-ORIF in a patient with baseline reported dementia while safe discharge planning is sought and level 2 is awaited Diagnoses Closed fracture of right hip, initial encounter S72.001A Encounter type: initial encounter Laterality: right UTI (urinary tract infection) N39.0 Altered mental status R41.82 Parkinson's disease with dyskinesia and fluctuating manifestations G20.B2 Dyskinesia presence: with dyskinesia Fluctuating manifestations: with fluctuating manifestations Learning disability F81.9 Lewy body dementia G31.83; F02.80 Postoperative anemia D64.9
[2024-03-02 15:42] VITALS: BP 111/67; PULSE 59; RESP 17; TEMP 36.8; O2SAT 98
[2024-03-02 20:00] VITALS: BP 123/75; PULSE 67; RESP 18; TEMP 36.9; O2SAT 95
[2024-03-02] MEDS: tamsulosin 0.4 mg Capsule PO (20:19)
[2024-03-02] MEDS: finasteride 5 mg Tablet PO (20:19)
[2024-03-02] MEDS: risperiDONE 0.25 mg Tablet 0.5 MG PO (20:19)
[2024-03-03] VITALS: BP 162/90; PULSE 59; RESP 17; TEMP 37.3; O2SAT 94
[2024-03-03 04:00] VITALS: BP 149/81; PULSE 60; RESP 18; TEMP 37.2; O2SAT 95
[2024-03-03 05:25] LABS: Basophils # 0.1 10^3/uL (0.0-0.1); Basophils % 0.5 %; Eosinophils # 0.6 10^3/uL (0.0-0.8); Eosinophils % 5.3 %; Hematocrit 29.6 % (37-53); Lymphocytes # 1.6 10^3/uL (0.8-4.8); Lymphocytes % 15.7 %; Mean Corpuscular HGB Conc 31.4 g/dL (30-55); Mean Corpuscular Hemoglobin 30.8 pg (27-33); Mean Platelet Volume 10.3 fL (7.4-10.4); Monocytes # 1.3 10^3/uL (0.2-0.9); Monocytes % 12.2 %; Neutrophils # 6.85 10^3/uL (1.8-7.7); Neutrophils % 65.5 %; Nucleated Red Blood Cells % 0 %; Platelet Count 306 10^3/cmm (157-399); Red Blood Count 3.02 10^6/uL (3.85-5.65); Red Cell Distribution Width 13.1 % (12.1-15.1); White Blood Count 10.44 10^3/uL (3.29-11.43)
[2024-03-03 05:53] LABS: Alanine Aminotransferase 72 U/L (0-41); Albumin Level 2.7 g/dL (3.5-5.2); Alkaline Phosphatase 132 U/L (40-130); Anion Gap 12.9 (5-19); Aspartate Amino Transferase 74 U/L (0-40); Blood Urea Nitrogen 27 mg/dL (8-23); Calcium 8.8 mg/dL (8.5-10.5); Carbon Dioxide 23 mmol/L (22-29); Chloride 107 mmol/L (98-107); Creatinine Clr Calc Pharmacy 44.8109; Globulin 3.2 g/dL (1.3-4.6); Glucose 103 mg/dL (65-115); Osmolality Calculated 291 mOsm/kg (285-295); Potassium 4.9 mmol/L (3.5-5.1); Sodium 138 mmol/L (136-145); Total Bilirubin 0.5 mg/dL (0.15-1.2); Total Protein 5.9 g/dL (6.6-8.7)
[2024-03-03] MEDS: pantoprazole 40 mg SDV IVP (06:42)
[2024-03-03 07:58] VITALS: BP 94/60; PULSE 62; RESP 20; TEMP 36.7; O2SAT 94
[2024-03-03] MEDS: apixaban 5 mg Tablet 2.5 MG PO (09:35)
[2024-03-03] MEDS: nicotine 14 mg Patch 1 PATCH TRANSDERMA (09:35)
[2024-03-03] MEDS: lithium carbonate 300 mg Capsule PO (09:35)
[2024-03-03] MEDS: escitalopram 10 mg Tablet PO (09:36)
[2024-03-03] MEDS: ferrous gluconate 324 mg Tablet PO (09:36)
[2024-03-03] MEDS: propranolol 20 mg Tablet PO (09:38)
[2024-03-03 11:52] VITALS: BP 119/63; PULSE 64; TEMP 36.7; O2SAT 97
--- NOTE | 2024-03-03 12:06 | P.DS_ITS ---
Discharge Providers Date of Admission: 02/24/24 06:32 Date of Discharge: March 03, 2024 Attending Provider at Admission: Bhupinder Jara MD Attending Provider at Discharge: Lefty Gamboa MD Primary Care Provider: Rosi Hernandez MD Diagnoses at Discharge Discharge Diagnosis (1) Closed hip fracture: Status: Acute Qualifiers: Encounter type: initial encounter Laterality: right Qualified Code(s): S72.001A - Fracture of unspecified part of neck of right femur, initial encounter for closed fracture (2) UTI (urinary tract infection): Status: Acute (3) Altered mental status: Status: Acute (4) Parkinson's Disease: Status: Acute Qualifiers: Dyskinesia presence: with dyskinesia Fluctuating manifestations: with fluctuating manifestations Qualified Code(s): G20.B2 - Parkinson's disease with dyskinesia, with fluctuations (5) Learning disability: Status: Acute (6) Lewy body dementia: Status: Acute (7) Postoperative anemia: Status: Acute Reason for Visit Reason for Visit: fall R leg deformity Brief History: History as per HPI: Miller Villanueva is a 73 year old male with a past medical history of COPD, Lewy body dementia, schizophrenia, bipolar disorder, has choreiform tremor, who presents to [facility] for a fall. Currently patient is alert to person, to place, not to time he follows commands, has episodes of confusion, requires frequent redirection, I frequently have to repeat my questions. He tells me that he got up this evening to use the bathroom and he fell. He tells me then normally he ambulates with a walker. He denies any previous falls. No headache. No blurry vision. No neck pain. No back pain. Denies any dysuria. No hematuria. No chest pain. No shortness of breath. Hospital Course Hospital Course Patient was admitted to hospital further evaluation and management of right hip fracture. Orthopedics was consulted and underwent ORIF. Postprocedure he had developed urinary retention for which Nelson catheter was placed. He failed voiding trial. Patient worked with physical therapy but poorly on and off because of baseline Parkinson's and Lewy body dementia. Postoperatively he did require a monitor blood transfusion after which his hemoglobin remained stable while being on anticoagulation for DVT prophylaxis with Eliquis of 2.5 mg twice daily. Same discharge described detail with the patient and his caregiver and decision was made to transfer to SNF for further rehabitation. He has been discharged in hemodynamically stable condition. Physical Exam Const: COMMON NORMALS: no acute distress GENERAL APPEARANCE: cooperative NUTRITIONAL APPEARANCE: thin ORIENTATION/CONSCIOUSNESS: Yes awake, Yes oriented to person, Yes oriented to place and Yes Other orientation findings (Forgetful) HENMT: COMMON NORMALS: normocephalic HEAD & SCALP: normocephalic Neck/C-Spine: COMMON NORMALS: no JVD Resp: COMMON NORMALS: normal respiratory effort, No retractions, No use of accessory muscles and clear to auscultation bilaterally AUSCULTATION: clear to auscultation bilaterally Cardio: COMMON NORMALS: no JVD, regular rate, regular rhythm, S1 normal heart sound present and S2 normal heart sound present RATE: regular rate RHYTHM: regular rhythm HEART SOUNDS: S1 normal heart sound present and S2 normal heart sound present GI: COMMON NORMALS: Normal to inspection, nondistended, normoactive bowel sounds present, Soft to palpation and non-tender PALPATION: Yes Soft to palpation Extremity: COMMON NORMALS: no calf tenderness and no pedal edema NARRATIVE EXTREMITY EXAM: Right leg surgical bandage site appears clean. Neuro: SENSORIUM/ORIENTATION: Yes oriented to person and Yes oriented to place OTHER: Alert to person, to place, not to time, can follow commands such as smiling for me, squeezing my hands with his upper bilateral upper extremities, able to wi ggle bilateral toes, right foot is displaced outwards Psych: COMMON NORMALS: mental status grossly normal Skin: NARRATIVE SKIN EXAM: Chest wall deformity left chest Urinary Catheter Management: Nelson: Cath Placed During This Visit: yes, but has since been removed by the nurse Reason for Continuing Indwelling Catheter: Required Immobilization for Trauma or Surgery or Anesthesia Urinary Catheter Date of Insertion: 02/26/24 Urinary Catheter Time of Insertion: 18:43 Date Urinary Catheter Removed: 02/26/24 Time Urinary Catheter Discontinued: 06:34 Discharge Data Studies Completed and Pending Completed Studies During Hospitalization Category Date Time Status CT femur RT wo con* [id number] Routine Cat Scan 02/29/24 21:[address] head wo con* [id number] Stat Cat Scan 02/24/24 06:22 Completed XR chest 1V portable [id number] Stat Exams 02/24/24 05:14 Completed XR femur RT min 2V* [id number] Stat Exams 02/24/24 05:17 Completed XR hip RT 2-3V wo/w pel* [id number] Routine Exams 02/25/24 00:00 Completed XR hip RT 2-3V wo/w pel* [id number] Stat Exams 02/24/24 04:38 Completed Radiology Impressions Chest X-Ray 02/24/24 05:14 IMPRESSION: 1. Mild cardiomegaly. Femur X-Ray 02/24/24 05:17 IMPRESSION: 1. Intertrochanteric fracture. Head CT 02/24/24 06:22 IMPRESSION: 1. Atrophy with small-vessel ischemic change. 2. Lucencies involving the temporoparietal bones bilaterally most notably on the coronal reformatted images. These most likely represent pseudo fractures from motion. If there is a clinical concern for a skull fracture, recommend repeat exam. Hip/Pelvis X-Ray 02/25/24 00:00 IMPRESSION: 1. Intraoperative ORIF RIGHT intertrochanteric hip fracture. 2. Avulsed lesser trochanter. Femur CT 02/29/24 21:14 IMPRESSION: 1. Highly comminuted intertrochanteric fracture of the right femur s/p fixation with cephalomedullary nail. 2. Diffuse soft tissue edema throughout the right lower extremity without developing fluid collections. Laboratory Results WBC 10.44 10^3/uL (3.29-11.43) 03/03/24 04:29 RBC 3.02 10^6/uL (3.85-5.65) L 03/03/24 04:29 Hgb 9.30 g/dL (11.27-16.99) L 03/03/24 04:29 Hct 29.6 % (37-53) L 03/03/24 04:29 MCV 98.0 fl (82-101) 03/03/24 04:29 MCH 30.8 pg (27-33) 03/03/24 04:29 MCHC 31.4 g/dL (30-55) 03/03/24 04:29 RDW 13.1 % (12.1-15.1) 03/03/24 04:29 Plt Count 306 10^3/cmm (157-399) 03/03/24 04:29 MPV 10.3 fL (7.4-10.4) 03/03/24 04:29 Neut % (Auto) 65.5 % 03/03/24 04:29 Lymph % (Auto) 15.7 % 03/03/24 04:29 [place] % (Auto) 12.2 % 03/03/24 04:29 Eos % (Auto) 5.3 % 03/03/24 04:29 Baso % (Auto) 0.5 % 03/03/24 04:29 Neut # (Auto) 6.85 10^3/uL (1.8-7.7) 03/03/24 04:29 Lymph # (Auto) 1.6 10^3/uL (0.8-4.8) 03/03/24 04:29 [place] # (Auto) 1.3 10^3/uL (0.2-0.9) H 03/03/24 04:29 Eos # (Auto) 0.6 10^3/uL (0.0-0.8) 03/03/24 04:29 Baso # (Auto) 0.1 10^3/uL (0.0-0.1) 03/03/24 04:29 Nucleated RBC % (auto) 0 % 03/03/24 04:29 Nucleated RBCs # 0.0 /100WBC 03/03/24 04:29 PT 13.40 SECONDS (12.1-14.9) 02/29/24 20:19 INR 0.99 (0.8-1.2) 02/29/24 20:19 APTT 35.1 SECONDS (23.9-36.7) 02/29/24 20:19 Sodium 138 mmol/L (136-145) 03/03/24 04:29 Potassium 4.9 mmol/L (3.5-5.1) 03/03/24 04:29 Chloride 107 mmol/L (98-107) 03/03/24 04:29 Carbon Dioxide 23 mmol/L (22-29) 03/03/24 04:29 Anion Gap 12.9 (5-19) 03/03/24 04:29 BUN 27 mg/dL (8-23) H 03/03/24 04:29 Creatinine 1.2 mg/dL (0.7-1.2) 03/03/24 04:29 GFR Calculation Not Reportable 03/03/24 04:29 Glucose 103 mg/dL (65-115) 03/03/24 04:29 Estimat Average Glucose 97 02/28/24 04:21 Hemoglobin A1c 5.0 % (4.0-6.0) 02/28/24 04:21 Calculated Osmolality 291 mOsm/kg (285-295) 03/03/24 04:29 Lactate 1.5 mmol/L (0.5-2.2) 02/29/24 20:19 Calcium 8.8 mg/dL (8.5-10.5) 03/03/24 04:29 Magnesium 1.8 mg/dL (1.7-2.3) 02/29/24 05:04 Iron 19 ug/dL (59-158) L 02/28/24 04:21 TIBC 127 mcg/dl 02/28/24 04:21 % Saturation 14.9 % (20-50) L 02/28/24 04:21 Unsat Iron Binding 108 ug/dL (112-347) L 02/28/24 04:21 Total Bilirubin 0.5 mg/dL (0.15-1.2) 03/03/24 04:29 AST 74 U/L (0-40) H 03/03/24 04:29 ALT 72 U/L (0-41) H 03/03/24 04:29 Alkaline Phosphatase 132 U/L (40-130) H 03/03/24 04:29 Troponin T Baseline 11 ng/L (0-15) 02/24/24 05:27 Troponin T 120 Minute 11.95 ng/L (0-15) 02/24/24 07:07 Delta Troponin T 0.95 ABS# (0-10) 02/24/24 07:07 Troponin T Hi Sens 6Hr 11.13 ng/L (0-15) 02/24/24 11:43 Troponin T Hi Sens 6Hr Delta 0.13 ng/L (0-12) 02/24/24 11:43 C-Reactive Protein 3.0 mg/L (0.0-4.9) 02/24/24 05:27 Total Protein 5.9 g/dL (6.6-8.7) L 03/03/24 04:29 Albumin 2.7 g/dL (3.5-5.2) L 03/03/24 04:29 Globulin 3.2 g/dL (1.3-4.6) 03/03/24 04:29 Vitamin B12 430 pg/mL (232-1245) 02/28/24 04:21 Folate 8.9 ng/mL (4.5-32.2) 02/29/24 05:04 TSH 1.16 uIU/mL (0.27-4.20) 02/24/24 05:27 Urine Color Yellow (Yellow) 02/24/24 06:00 Urine Appearance Cloudy (CLEAR) A 02/24/24 06:00 Urine pH 6.5 (5-7) 02/24/24 06:00 Ur Specific [place] 1.007 (1.005-1.030) 02/24/24 06:00 Urine Protein Negative (Negative) 02/24/24 06:00 Urine Glucose (UA) Negative (Normal) 02/24/24 06:00 Urine Ketones Negative (Negative) 02/24/24 06:00 Urine Blood Negative (Negative) 02/24/24 06:00 Urine Nitrate Positive (Negative) A 02/24/24 06:00 Urine Bilirubin Negative (Negative) 02/24/24 06:00 Urine Urobilinogen 0.2 mg/dL (Negative) 02/24/24 06:00 Ur Leukocyte Esterase 2+ (Negative) A 02/24/24 06:00 Urine RBC 0-2 /hpf (0-2) 02/24/24 06:00 Urine WBC 21-50 /hpf (0-5) H 02/24/24 06:00 Ur Squamous Epith Cells 0-5 /hpf (0-5) 02/24/24 06:00 Amorphous Sediment Not Reportable 02/24/24 06:00 Urine Bacteria 4+ /hpf (NONE) H 02/24/24 06:00 Hyaline Casts 0-4 /lpf H 02/24/24 06:00 [place] 0.3 mmol/L (0.6-1.2) L 02/29/24 05:04 Blood Type O Positive 02/26/24 06:01 Rho(D) Type Rh positive 02/26/24 06:01 Antibody Screen Negative 02/26/24 06:01 Crossmatch See Detail 02/26/24 06:01 Vitals Last Vital Signs Temp 98.0 F 03/03/24 11:52 Pulse 64 03/03/24 11:52 Resp 20 H 03/03/24 07:58 BP 119/63 03/03/24 11:52 Pulse Ox 97 03/03/24 11:52 O2 Del Method Room Air 03/03/24 11:52 O2 Flow Rate 6 02/25/24 13:45 Discharge Plan Discharge Patient Disposition: Xfer SNF Condition: Stable Prescriptions: New finasteride 5 mg Tablet 5 mg PO BEDTIME Qty: 30 0RF Eliquis 5 mg Tablet 2.5 mg PO BID Qty: 30 0RF Continued escitalopram oxalate [Lexapro] 10 mg tablet 10 mg PO DAILY@08 loratadine 10 mg tablet 10 mg PO DAILY@08 omeprazole 40 mg capsule,delayed release(DR/EC) 40 mg PO BID@05,16 tamsulosin [Flomax] 0.4 mg capsule 0.4 mg PO BEDTIME@20 risperidone [Risperdal] 0.5 mg tablet 0.5 mg PO DAILY trihexyphenidyl 2 mg tablet 2 mg PO TID Qty: 90 3RF propranolol 10 mg Tablet 10 mg PO BID ferrous sulfate 325 mg (65 mg iron) Tablet 325 mg PO .QOD Miralax 17 gram/dose Powder See Rx Instructions .ROUTE .COMPLEX Rx Instructions: dissolve 17 g in water or juice one time daily Flonase Allergy Relief 50 mcg/actuation [place],Suspension 1 spray INTRANASAL BID fluticasone propion-salmeterol [Advair Diskus] 250-50 mcg/dose Blister With Device 1 inh INHALATION BID@08,20 albuterol sulfate 2.5 mg /3 mL (0.083 %) Solution For Nebulization 2.5 mg INHALATION Q6H PRN (Reason: Shortness Of Breath) tiotropium bromide [Spiriva with HandiHaler] 18 mcg Capsule, W/Inhalation Device 1 cap INHALATION DAILY@06 Rx Instructions: puncture 1 cap using device; one dose = 2 inhalations lithium carbonate 300 mg capsule 300 mg PO DAILY@08 carbidopa-levodopa [Sinemet] 25-100 mg tablet 1 tab PO TID Discharge Orders: Discharge Order (Routine); Ordered 03/03/24 Ordered By: Lefty Gamboa Referrals: [facility] [Outside] Abram Gentile [Referring] - 7-10 days (Please call Wednesday to schedule appointment as the office is currently closed. ) Milton Quesada DO [Physician] - 03/09/24 10:45 am Rosi Hernandez MD [Primary Care Provider] - 2 weeks Discharge Diet: GI Soft Discharge Activity: Resume usual activity and Increase activity as tolerated Patient Instructions: Acute Wound Care (DC), Opioid Safety, Post Anesthesia Care Activity Restrictions/Additional Instructions: You are being discharged from the hospital today during which time you have been under the care of . You had a right hip fracture. You were treated for this injury with right hip intramedullary nail. You may resume you normal diet (including any special diets as directed by your primary doctor) as well as your home medications. You should follow up with you primary doctor if you have any questions regarding medication you took prior to your stay in the hospital. You may take your pain medication as prescribed. After the first few days, take your pain medication as needed. Do not drive or drink alcohol while taking your pain medication. Your injury may increase your risk of developing a blood clot,or DVT, in your arm or leg. This could potentially dislodge and travel to your lungs and become a life threatening condition called a pulmonary embolus,or PE. You have been prescribed Eliquis to be taken to prevent this. Frequent movement of the feet will also help prevent this from occurring. If you develop any new or worsening cough, chest pain, bloody sputum or shortness of breath, call 911 or go to the Emergency Room. Always keep your surgical incision/dressing clean and dry. If you experience increasing pain at your incision site, redness, swelling, increasing discharge, foul odors, or fevers (greater than 100.4), night sweats or chills you should call the office at the above number. If you feel this is an emergency you should be evaluated in the Emergency Department of a nearby hospital. Orthopedic Patient Instructions Summary: Weight Bearing: As tolerated Activity: As tolerated. Diet: Regular. Wound Care: Keep dressing clean and dry. Anticoagulation: Eliquis Pain Medication: Take only as needed. Ice, rest and elevation will be of great benefit. Please plan to follow-up wl Dr Quesada in 2 weeks. You will need to call the clinic [phone] to schedule this visit. Thank you far allowing me to participate in your care. Do not hesitate to call the office with any questions or concerns. Discharge Attestations Time Spent in Discharge Care*: greater than 30 min Specific Discharge Activities: educating patient, educating and/or supporting family/caregiver, discussing with pcp/other providers, discussing with correctional casework specialist/social workers/dc planners, documenting/other paperwork and evaluating patient/reviewing data Status at Discharge: Cognitive status at discharge: mildly impaired cognition , Behavioral status at discharge: cooperative , Functional status at discharge: uses cane/walker , Overall status at discharge: patient is progressing back to baseline Quality Metrics Clinical Quality Measures [ No reported AMI, CVA or VTE this stay] Coding Level of Care Code 81822 Total time (in minutes) for Discharge: 60 Diagnoses Closed fracture of right hip, initial encounter S72.001A Encounter type: initial encounter Laterality: right UTI (urinary tract infection) N39.0 Altered mental status R41.82 Parkinson's disease with dyskinesia and fluctuating manifestations G20.B2 Dyskinesia presence: with dyskinesia Fluctuating manifestations: with fluctuating manifestations Learning disability F81.9 Lewy body dementia G31.83; F02.80 Postoperative anemia D64.9
[2024-03-03 15:00] VITALS: BP 119/63; PULSE 64; RESP 16; TEMP 36.7; O2SAT 97
== END 2024-03-03 14:45 | disposition skilled nursing facility (03) | DRG 481 ==
LOC: ER 05:35 → MEDSURG 06:37
PROVIDERS: Family Medicine; Internal Medicine; Orthopaedic Surgery; Admitting Provider Family Medicine; Emergency Provider Emergency Medicine; PCP Family Medicine; Visit Provider Student in an Organized Health Care Education/Training Program
PROC: 0QS636Z Reposition Right Upper Femur with Intramedullary Internal Fixation Device, Percutaneous Approach (ICD-10-PCS; CPT 27245; principal; 2024-02-25 12:30)
DX: S72.141A Displaced intertrochanteric fracture of right femur, initial encounter for closed fracture (principal); D62 Acute posthemorrhagic anemia; N39.0 Urinary tract infection, site not specified; G20.B2 Parkinson's disease with dyskinesia, with fluctuations; F81.9 Developmental disorder of scholastic skills, unspecified; G31.83 Neurocognitive disorder with Lewy bodies; F02.80 Dementia in other diseases classified elsewhere, unspecified severity, without behavioral disturbance, psychotic disturbance, mood disturbance, and anxiety; R41.82 Altered mental status, unspecified; J44.9 Chronic obstructive pulmonary disease, unspecified; F20.9 Schizophrenia, unspecified; F31.9 Bipolar disorder, unspecified; G25.5 Other chorea; F17.200 Nicotine dependence, unspecified, uncomplicated; B96.20 Unspecified Escherichia coli [E. coli] as the cause of diseases classified elsewhere; R33.9 Retention of urine, unspecified; Z75.1 Person awaiting admission to adequate facility elsewhere; Z79.899 Other long term (current) drug therapy
CPT/HCPCS: 36415; 36430; 51702; 70450; 71045; 73502; 73552; 73700; 76000; 80048; 80053; 80178; 81001; 82607; 82746; 83036; 83540; 83550; 83605; 83735; 84443; 84484; 85014; 85018; 85025; 85610; 85730; 86140; 86850; 86900; 86920; 87077; 87086; 87186; 93005; 96374; 96375; 97116; 97161; 97166; 97530; 99285; C1713; J0690; J0696; J1100; J1170; J2405; J2470; J2704; J3010; J7030; P9016; P9040

== ENCOUNTER → 2024-05-30 14:43 | Outpatient (BNVA) | payer MEDICAID, SELFPAY ==
[2020-02-26 15:34] VITALS: BP 106/80; BMI 27.3
== END ==
PROVIDERS: PCP Family Medicine; Visit Provider Orthopaedic Surgery
DX: Z01.818 Encounter for other preprocedural examination (principal); S72.141A Displaced intertrochanteric fracture of right femur, initial encounter for closed fracture; X58.XXXA Exposure to other specified factors, initial encounter
CPT/HCPCS: 36415; 73502; 80053; 85025; 99024

== ENCOUNTER 2024-06-05 15:10 | Inpatient (IN) | payer MEDICAID, SELFPAY ==
[2020-02-26 15:34] VITALS: BP 106/80; BMI 27.3
[2024-06-05] VITALS (15 sets, daily range): BP systolic 99–136; BP diastolic 57–78; PULSE 69–99; RESP 13–18; TEMP 35.9–37.2; O2SAT 92–100; BMI 21.4
--- NOTE | 2024-06-05 08:43 | SUR.PREOP ---
0815 patient brought to Main entrance to get admitted and then brought to OPS admitting, Kat called and talked to Tiburcio and he stated he would notify the head nurse bat person and call me back.
[2024-06-05] MEDS: sodium chloride 0.9% 1,000 ML 30 ML IV (12:08)
--- NOTE | 2024-06-05 12:57 | ANES.PREANE2 ---
Pre-Anesthetic Assessment Height/Weight: Height 5 ft 3 in Weight 121 lb Temp Pulse Resp BP Pulse Ox O2 Del Method 98.9 F 69 18 120/78 95 Room Air 06/05/24 10:55 06/05/24 10:55 06/05/24 10:55 06/05/24 10:55 06/05/24 10:55 06/05/24 11:20 Preop Diagnosis: Painful orthopedic hardware right hip Operation Date: 06/05/24 14:20 Proposed Procedures p Hemiarthroplasty Hip(Left) - Milton Quesada, DO Was Beta Kvng taken within 24 hours: N/A Was Clonidine taken within 24 hours: N/A Last intake: Intake Last Liquid Date 06/04/24 Last Liquid Time 19:00 Last Solid Date 06/04/24 Last Solid Time 18:00 Social Tobacco and No alcohol Exam alert, oriented x 3, clear to auscultation bilaterally and regular rate & rhythm Airway Submandibular: within normal limits Cervical ROM: within normal limits Mallampati: Class II Dentition: other (edentulous) Anesthetic Plan ASA status: 3 Anesthesia: General Other: No prior issues with anesthesia, patient comes from shelter [facility] since yesterday History of Parkinson's disease, on Sinemet GERD on omeprazole Hypertension on propranolol Patient has Lewy body dementia, and alert and oriented x 3 however Plan for general anesthetic Medications/Allergies Home Medications Medication Instructions Recorded Confirmed Last Taken Type escitalopram oxalate 10 mg tablet 10 mg PO DAILY@08 12/28/19 06/05/24 06/04/24 History (Lexapro) loratadine 10 mg tablet 10 mg PO DAILY@12/28/19 06/05/24 06/04/24 History omeprazole 40 mg capsule,delayed 40 mg PO BID@,12/28/19 06/05/24 06/04/24 History release tamsulosin 0.4 mg capsule (Flomax) 0.4 mg PO BEDTIME@12/28/19 06/05/24 06/04/24 History albuterol sulfate 2.5 mg/3 mL 2.5 mg inhalation Q6H PRN 01/06/23 06/05/24 Unknown History (0.083 %) solution for nebulization Shortness Of Breath carbidopa 25 mg-levodopa 100 mg 1 tab PO TID 01/06/23 06/05/24 06/04/24 History tablet (Sinemet) fluticasone 250 mcg-salmeterol 50 1 inh inhalation BID@01/06/23 06/05/24 06/04/24 History mcg/dose blistr powdr for inhalation (Advair Diskus) lithium carbonate 300 mg capsule 300 mg PO DAILY@08 01/06/23 06/05/24 06/04/24 History tiotropium bromide 18 mcg capsule 1 cap inhalation DAILY@01/06/23 06/05/24 06/04/24 History with inhalation device (Spiriva with HandiHaler) risperidone 0.5 mg tablet 0.5 mg PO DAILY 12/08/23 06/05/24 06/04/24 History (Risperdal) trihexyphenidyl 2 mg tablet 2 mg PO TID #90 tabs 12/08/23 06/05/24 06/04/24 Rx ferrous sulfate 325 mg (65 mg 325 mg PO .QOD 02/24/24 06/05/24 06/04/24 History iron) tablet fluticasone propionate 50 1 spray intranasal BID 02/24/24 06/05/24 06/04/24 History mcg/actuation nasal spray,suspension (Flonase Allergy Relief) polyethylene glycol 3350 17 See Rx Instructions .Route .COMPLEX 02/24/24 06/05/24 06/04/24 History gram/dose oral powder (Miralax) propranolol 10 mg tablet 10 mg PO BID 02/24/24 06/05/24 06/04/24 History apixaban 5 mg tablet (Eliquis) 2.5 mg (1/2 x 5 mg) PO BID #30 tabs 03/03/24 06/05/24 06/02/24 20:00 Rx finasteride 5 mg tablet 5 mg PO BEDTIME #30 tabs 03/03/24 06/05/24 06/04/24 Rx acetaminophen 325 mg tablet 650 mg PO QID PRN pain, fever 06/05/24 06/05/24 05/29/24 21:00 History magnesium hydroxide 400 mg/5 mL 400 mg PO DAILY PRN Constipation 06/05/24 06/05/24 06/03/24 10:30 History oral suspension (Milk of Magnesia) Allergies Allergy/AdvReac Type Severity Reaction Status Date / Time No Known Allergies Allergy Verified 05/30/24 14:46 Current Medications Generic Name Dose Route Start Last Admin Trade Name Freq PRN Reason Stop Dose Admin Sodium Chloride 1,000 mls @ 30 mls/hr 06/05/24 10:45 06/05/24 12:08 Sodium Chloride 0.9% IV 06/06/24 10:44 30 mls/hr .Q24H KAITLYNN Administration PFSH Anesthesia Medical History COPD (chronic obstructive pulmonary disease) Learning disability Bipolar affective Lewy body dementia Schizophrenia Family History Grandmother Diabetes Grandfather Cancer Social History Smoking and tobacco/nicotine status: unknown if used tobacco/nicotine Quit status (tobacco/nicotine): not considering quitting Alcohol intake: never Substance/Drug Use: never Housing: Assisted Living Facility Marital status: Single Current gender identity: Male Data Anesthesia Cardiac Studies: No Data to Display
--- NOTE | 2024-06-05 12:59 | W.PM.OPSUD ---
Surgery/Procedure H&P Update DATE OF PROCEDURE: June 05, 2024 DATE H&P PERFORMED: 05/30/24 H&P UPDATE INFORMATION: I have reviewed H&P completed within last 30 days, I have examined patient prior to procedure and No changes to prior documentation PREOP DIAGNOSIS: Painful orthopedic hardware right hip PLANNED PROCEDURE: Operation Date: 06/05/24 14:20 Proposed Procedures p Hemiarthroplasty Hip(Left) - Milton Quesada DO
[2024-06-05] MEDS: ceFAZolin 2,000 mg SDV 2000 MG IVP ×2 (13:11→22:45)
[2024-06-05] MEDS: VANCOMYCIN ADD-Vantage 1,000 MG VIAL 1000 MG INTRA-ARTI (14:02)
[2024-06-05 14:09] LABS: Bilirubin Urine Negative (Negative); Blood Urine 3+ (Negative); Glucose Urine UA Negative (Normal); Ketones Urine Negative (Negative); Leukocyte Esterase Urine 1+ (Negative); Nitrate Urine Positive (Negative); Protein Urine 1+ (Negative); Specific Gravity, Urine 1.012 (1.005-1.030); Urine Appearance Cloudy (CLEAR); Urine Color Yellow (Yellow); Urobilinogen Urine 0.2 mg/dL (Negative)
[2024-06-05 14:11] LABS: Bacteria Urine 4+ /hpf; Hyaline Casts Urine 41.78 /lpf; RBC Urine >100 /hpf (0-2); Squamous Epithelial Cell Urine 0-5 /hpf (0-5); WBC Urine 51-100 /hpf (0-5)
[2024-06-05 14:39] LABS: Add Urine Culture? Yes; UA Slide Review UA Slide Review Perf
--- NOTE | 2024-06-05 15:19 | XRR_ITS ---
PROCEDURE INFORMATION: Exam: XR Right Hip Exam date and time: 06/05/2024 3:48 PM Age: 73 years old Clinical indication: Device placement; Other: Hip surgery; Prior surgery; Surgery date: Post-operative (0-2 days); Additional info: Post op TECHNIQUE: Imaging protocol: Radiologic exam of the right hip. Views: 1 view hip with pelvis when performed. Total images: 2 COMPARISON: CR XR hip RT 2-3V wo/w pel* [id number] 05/30/2024 2:57 PM FINDINGS: Tubes, catheters and devices: The prosthesis appears near anatomic in positioning. No parallel lucencies adjacent to the prosthesis are seen to suggest loosening. No acute fractures, subluxation, nor dislocation. Bones/joints: Right hip arthroplasty is present. Spinal degenerative changes are evident. Soft tissues: Subcutaneous emphysema are present from recent surgery. Vasculature: Severe atherosclerotic disease burden is evident. XR/XR hip RT 1V wo/w pel [id number] IMPRESSION: Status post recent right hip arthroplasty without complication.
--- NOTE | 2024-06-05 15:24 | PM.OP ---
Operative Report Date of procedure: June 05, 2024 Pre-op diagnosis: Failure of hardware in right hip fracture Post-op diagnosis: same Procedure done: 1. Right hip revision hip hemiarthroplasty 2. Removal of deep hardware from right hip Surgeon: Milton Quesada DO Estimated blood loss (mL): 650 Procedure: 1. Right hip revision hip hemiarthroplasty 2. Removal of deep hardware from right hip Patient is brought to the operative suite after an [place] was placed in the lateral decubitus position with the right side up. Skin incision was made over the previous skin incisions and then along the lateral aspect of the femur. The IT band was cut opened and then through the abductors the tip of the hip nail was identified. The conical screw was inserted into the top of the nail. Extension was made to the lag screw. The incision was made over the lag screw cut through the vastus lateralis and then the screw was identified and backed out. Next attention was brought to the distal locking screw this was identified and removed as well. The nail was then back slapped out to the femur. Next tension was brought to doing the hemiarthroplasty. This was done using modified Eisenberg approach. The abductor and capsule were taken anteriorly. The hip was dislocated. The femoral neck cut was made approxi-1 fingerbreadth above the lesser trochanter. Is difficult to identify anatomy with all the callus and healed fracture that occurred. After the femoral neck cut was made the femoral head was dislocated and removed. And measured to be 45 mm. Next tension was brought to the femur. The box spring upholsterer was used followed by the canal finder followed by the lateralizer. The canal was then reamed to 16. A size 16 stem was then inserted. The proximal portion was then reamed to 24. And then the trial calcar portion of the resting modular system was then used. The rotation was dialed in. And then the hip was relocated and trialed with a standard and +4. Is felt the +4 was a better fit. A 45 mm with a +4 neck was then malleted onto the calcar portion. After the final calcar portion was locked into position and torqued into position. The hip was relocated. And C arm views were ensured that the hip is in good position. Hip was stressed in all ranges of motion felt to be stable. The abductors and capsule repair. Along with the IT band. Skin is closed with Vicryl and Monocryl suture. Sterile dressings were applied and patient was transferred to the PACU in stable condition.
[2024-06-05] MEDS: fentaNYL 50 mcg/mL INJ 2mL IVP (15:51)
--- NOTE | 2024-06-05 16:14 | ANE.PACU2 ---
Inpatient post-anesthesia follow up: Airway intact: Yes Vital signs: Temperature 96.6 F Pulse Rate 81 Respiratory Rate 17 Blood Pressure 99/63 Pulse Oximetry 96 Oxygen Delivery Me thod Nasal Cannula Oxygen Flow Rate 2 Fraction of Inspir ed Oxygen Hydration adequate: Yes Nausea and vomiting: No Pain level: 1 Mental status: Baseline
--- NOTE | 2024-06-05 17:02 | P.CONIM_ITS ---
Providers/Reason For Consult Consulting Physician/Specialty*: Hospitalist Reason for Consult*: Medical comorbidities Attending Physician: Milton Quesada DO Primary Care Provider: Rosi Hernandez MD History of Present Illness History of Present Illness Miller Villanueva is a 73 year old male with a past medical history of COPD, Lewy body dementia, schizophrenia, bipolar disorder, has choreiform tremor, who underwent ORIF for right hip fracture in 03/07 underwent right hip revision hemiarthroplasty, removal of deep hardware from the right hip in setting of failure of hardware. Estimated blood loss reported of 650 cc. On examination patient lying comfortably in bed, awake and alert with heart rate of 80 bpm saturating 96% on 2 L, blood pressure of 107/60 mmHg. After the patient he was unable to bear any weight on the leg and hip postoperatively and was not able to do any physical therapy. Currently he is complaining of pain. Denies any nausea, vomiting, headache or chest pain. Denies any dizziness. Review of Systems General: Reports: 10 or more systems reviewed and unremarkable except in HPI and below Const: Denies: fever(s), chills, body aches, change in appetite, change in weight, malaise, night sweats, diaphoresis, change in sleep pattern, daytime sleepiness or snoring Eyes: Denies: change in vision, blurry vision, photophobia, eye discomfort or eye discharge ENMT: Denies: throat pain, enlarged tonsils, hoarseness, mouth pain, oral sores, dry mouth, tinnitus, nasal congestion or post nasal drip Card: Denies: chest pain, palpitations, irregular heart rhythm, edema, swelling of feet/ankles, lightheadedness, syncope, pre-syncope, dyspnea on exertion, orthopnea, leg pain with exertion or acrocyanosis Resp: Denies: dyspnea, productive cough, non-productive cough, wheezing, stridor, pain on inspiration, change in phlegm color, hemoptysis or chest congestion GI: Denies: abdominal pain, nausea, vomiting, hematemesis, coffee ground emesis, dysphagia, heartburn, diarrhea, constipation, bloating, GI cramping, change in bowel habits, pain on defecation, hematochezia or melena : Denies: flank pain, difficulty urinating, dysuria, urinary frequency, urinary urgency, urinary hesitancy, urinary dribbling, difficulty starting urination, change in urine stream, nocturia or hematuria Musc: Denies: neck pain, back pain, extremity pain, joint pain, joint swelling, joint redness, joint stiffness or limited range of motion Neuro: Denies: headache(s), numbness in extremities, weakness in extremities, sensory changes, lack of coordination, difficulty walking, frequent falls, dizziness, vertigo, confusion, Slurred speech present, difficulty communicating thoughts or seizure-like activity Psych: Denies: anxiety, depression, mood swings, panic attacks, hopelessness or irritability Endo: Denies: polyuria, polydipsia, tired all the time, cold intolerance, excessive sweating, flushing or heat intolerance Dannie/Lymph: Denies: easy bruising or easy bleeding All/Imm: Denies: tongue swelling, facial swelling or acute wheezing Medications/Allergies Home Medications Medication Instructions Recorded Confirmed Last Taken Type escitalopram oxalate 10 mg tablet 10 mg PO DAILY@12/28/19 06/05/24 06/04/24 History (Lexapro) loratadine 10 mg tablet 10 mg PO DAILY@12/28/19 06/05/24 06/04/24 History omeprazole 40 mg capsule,delayed 40 mg PO BID@12/28/19 06/05/24 06/04/24 History release tamsulosin 0.4 mg capsule (Flomax) 0.4 mg PO BEDTIME@12/28/19 06/05/24 06/04/24 History albuterol sulfate 2.5 mg/3 mL 2.5 mg inhalation Q6H PRN 01/06/23 06/05/24 Unknown History (0.083 %) solution for nebulization Shortness Of Breath carbidopa 25 mg-levodopa 100 mg 1 tab PO TID 01/06/23 06/05/24 06/04/24 History tablet (Sinemet) fluticasone 250 mcg-salmeterol 50 1 inh inhalation BID@01/06/23 06/05/24 06/04/24 History mcg/dose blistr powdr for inhalation (Advair Diskus) lithium carbonate 300 mg capsule 300 mg PO DAILY@01/06/23 06/05/24 06/04/24 History tiotropium bromide 18 mcg capsule 1 cap inhalation DAILY@01/06/23 06/05/24 06/04/24 History with inhalation device (Spiriva with HandiHaler) risperidone 0.5 mg tablet 0.5 mg PO DAILY 12/08/23 06/05/24 06/04/24 History (Risperdal) trihexyphenidyl 2 mg tablet 2 mg PO TID #90 tabs 12/08/23 06/05/24 06/04/24 Rx ferrous sulfate 325 mg (65 mg 325 mg PO .QOD 02/24/24 06/05/24 06/04/24 History iron) tablet fluticasone propionate 50 1 spray intranasal BID 02/24/24 06/05/24 06/04/24 History mcg/actuation nasal spray,suspension (Flonase Allergy Relief) polyethylene glycol 3350 17 See Rx Instructions .Route .COMPLEX 02/24/24 06/05/24 06/04/24 History gram/dose oral powder (Miralax) propranolol 10 mg tablet 10 mg PO BID 02/24/24 06/05/24 06/04/24 History apixaban 5 mg tablet (Eliquis) 2.5 mg (1/2 x 5 mg) PO BID #30 tabs 03/03/24 06/05/24 06/02/24 20:00 Rx finasteride 5 mg tablet 5 mg PO BEDTIME #30 tabs 03/03/24 06/05/24 06/04/24 Rx acetaminophen 325 mg tablet 650 mg PO QID PRN pain, fever 06/05/24 06/05/24 05/29/24 21:00 History magnesium hydroxide 400 mg/5 mL 400 mg PO DAILY PRN Constipation 06/05/24 06/05/24 06/03/24 10:30 History oral suspension (Milk of Magnesia) Allergies Allergy/AdvReac Type Severity Reaction Status Date / Time No Known Allergies Allergy Verified 05/30/24 14:46 PFSH Acute PFSH: Medical History (Updated 06/05/24 @ 17:07 by Lefty Gamboa MD) Hip fracture, right COPD (chronic obstructive pulmonary disease) Learning disability Bipolar affective Lewy body dementia Schizophrenia Surgical History (Updated 06/05/24 @ 17:07 by Lefty Gamboa MD) S/P ORIF (open reduction internal fixation) fracture Family History Grandmother Diabetes Grandfather Cancer Social History Smoking and tobacco/nicotine status: unknown if used tobacco/nicotine Quit status (tobacco/nicotine): not considering quitting Alcohol intake: never Substance/Drug Use: never Housing: Assisted Living Facility Marital status: Single Current gender identity: Male Vitals/I&O/Wt Last Vital Signs Temp 96.6 F L 06/05/24 16:20 Pulse 81 06/05/24 16:20 Resp 17 06/05/24 16:20 BP 99/63 06/05/24 16:20 Pulse Ox 96 06/05/24 16:20 O2 Del Method Nasal Cannula 06/05/24 16:22 O2 Flow Rate 2 06/05/24 16:07 06/05/24 06/05/24 06/05/24 06:59 14:59 22:59 Intake Total 1000 / 1000 1000 / 2000 Output Total 690 / 690 Balance 1000 / 1000 310 / 1310 Weight last 48 hrs Weight 54.885 kg Physical Exam Narrative: General: No acute distress, AO x 2-3, dehydrated, mild pallor HEENT: PERRLA, pupils bilaterally equal and reactive Chest: Normal vesicular breath sounds, no added sounds, equal good air entry bilaterally CVS: S1-S2 regular, no murmurs, no tachycardia, no gallops, no rubs Abdomen: Soft, nontender, no organomegaly, bowel sounds present Neuro: No focal deficits, no facial deformity, AO x3, power 5/5 in all limbs Urinary Catheter Management: Nelson: Cath Placed During This Visit: yes Urinary Catheter Date of Insertion: 06/05/24 Urinary Catheter Time of Insertion: 13:20 A&P Assessment and plan (1) Encounter for postoperative care: (2) Status post hemiarthroplasty of right hip: (3) UTI (urinary tract infection): (4) Hardware failure: (5) Loosening of intramedullary nail: (6) Bipolar affective: Qualifiers: Active/Remission status: in full remission Most recent bipolar episode type: mixed Qualified Code(s): F31.78 - Bipolar disorder, in full remission, most recent episode mixed (7) Lewy body dementia: (8) COPD (chronic obstructive pulmonary disease): Past history. No exacerbation. DuoNeb as needed. Plan 73-year-old gentleman who underwent revision of right hip with hemiarthroplasty in setting of failure of hardware from ORIF done in February 2024. Check CBC, CMP. Monitor hemoglobin. PT, advancement of diet, anticoagulation as per surgical team. Target hemoglobin more than 7. Will transfuse accordingly. Check TIBC. Appreciate recent B12 levels. UTI: UA concerning for UTI. Follow-up blood culture, urine culture. History of UTI with E. coli. Start on IV ceftriaxone 1 g daily. Will de- escalate antibiotics as per culture sensitivities. Continue other chronic home medication including carbidopa levodopa, f inasteride, lithium, propranolol, risperidone, Flomax. Full code Cardiac diet once able. Anticoagulation per primary team Protonix for PUD prophylaxis Consult Attestations Medical Necessity Statement: As per primary team. Diagnoses Encounter for postoperative care Z48.89 Status post hemiarthroplasty of right hip Z96.641 UTI (urinary tract infection) N39.0 Hardware failure Loosening of intramedullary nail T84.199A Bipolar disorder, in full remission, most recent episode mixed F31.78 Active/Remission status: in full remission Most recent bipolar episode type: mixed Lewy body dementia G31.83; F02.80 COPD (chronic obstructive pulmonary disease) J44.9
[2024-06-05 17:36] LABS: Basophils % 0.2 %; Eosinophils % 0.2 %; Hematocrit 33.7 % (37-53); Lymphocytes # 0.8 10^3/uL (0.8-4.8); Lymphocytes % 6.2 %; Mean Corpuscular HGB Conc 30.6 g/dL (30-55); Mean Corpuscular Hemoglobin 29.3 pg (27-33); Mean Platelet Volume 10.3 fL (7.4-10.4); Monocytes # 0.6 10^3/uL (0.2-0.9); Monocytes % 4.2 %; Neutrophils # 11.95 10^3/uL (1.8-7.7); Neutrophils % 88.9 %; Nucleated Red Blood Cells % 0 %; Platelet Count 192 10^3/cmm (157-399); Red Blood Count 3.51 10^6/uL (3.85-5.65); White Blood Count 13.46 10^3/uL (3.29-11.43)
[2024-06-05] MEDS: sodium chloride 0.9% 1,000 ML 80 ML IV (17:37)
[2024-06-05] MEDS: cefTRIAXone 1,000 mg SDV 1000 MG IVP (17:38)
[2024-06-05] MEDS: pantoprazole DR 40 mg Tablet PO (17:38)
[2024-06-05] MEDS: fluticasone nasal spray 16gm Btl 1 SPRAY INTRANASAL (17:38)
[2024-06-05 17:59] LABS: Alanine Aminotransferase 15 U/L (0-41); Albumin Level 3.8 g/dL (3.5-5.2); Alkaline Phosphatase 143 U/L (40-130); Anion Gap 12.5 (5-19); Aspartate Amino Transferase 17 U/L (0-40); Blood Urea Nitrogen 26 mg/dL (8-23); Calcium 9.2 mg/dL (8.5-10.5); Carbon Dioxide 21 mmol/L (22-29); Chloride 113 mmol/L (98-107); Creatinine Clr Calc Pharmacy 50.6404; Globulin 2.8 g/dL (1.3-4.6); Glucose 127 mg/dL (65-115); Iron 51 ug/dL (59-158); Osmolality Calculated 300 mOsm/kg (285-295); Percent Saturation 28.9 % (20-50); Potassium 4.5 mmol/L (3.5-5.1); Sodium 142 mmol/L (136-145); Total Bilirubin 0.2 mg/dL (0.15-1.2); Total Iron Binding Capacity 176 mcg/dl; Total Protein 6.6 g/dL (6.6-8.7); Unsaturated Iron Binding 125 ug/dL (112-347)
[2024-06-05] MEDS: carbidopa-levodopa 25-100mg Tablet 1 EACH PO (22:45)
[2024-06-05] MEDS: finasteride 5 mg Tablet PO (22:45)
[2024-06-05] MEDS: tamsulosin 0.4 mg Capsule PO (22:45)
[2024-06-06] VITALS (11 sets, daily range): BP systolic 100–130; BP diastolic 55–72; PULSE 69–91; RESP 16–18; TEMP 36.5–37.8; O2SAT 92–100
[2024-06-06] MEDS: pantoprazole DR 40 mg Tablet PO ×2 (04:06→15:16)
[2024-06-06] MEDS: sodium chloride 0.9% 1,000 ML 80 ML IV (04:07)
[2024-06-06] MEDS: enoxaparin 30 mg/0.3 mL Syringe SUBCUT (04:08)
[2024-06-06] MEDS: ceFAZolin 2,000 mg SDV 2000 MG IVP ×2 (04:08→15:05)
[2024-06-06 06:53] LABS: Basophils % 0.3 %; Eosinophils % 0.3 %; Hematocrit 25.3 % (37-53); Lymphocytes % 13.2 %; Mean Corpuscular HGB Conc 30.4 g/dL (30-55); Mean Corpuscular Hemoglobin 30.1 pg (27-33); Mean Corpuscular Volume 98.8 fl (82-101); Mean Platelet Volume 10.5 fL (7.4-10.4); Monocytes # 1.3 10^3/uL (0.2-0.9); Monocytes % 16.3 %; Neutrophils # 5.35 10^3/uL (1.8-7.7); Neutrophils % 69.5 %; Nucleated Red Blood Cells % 0 %; Platelet Count 154 10^3/cmm (157-399); Red Blood Count 2.56 10^6/uL (3.85-5.65); White Blood Count 7.68 10^3/uL (3.29-11.43)
[2024-06-06 07:09] LABS: Alanine Aminotransferase < 5 U/L (0-41); Albumin Level 2.9 g/dL (3.5-5.2); Alkaline Phosphatase 107 U/L (40-130); Anion Gap 12.4 (5-19); Aspartate Amino Transferase 16 U/L (0-40); Blood Urea Nitrogen 25 mg/dL (8-23); Calcium 8.6 mg/dL (8.5-10.5); Carbon Dioxide 19 mmol/L (22-29); Chloride 111 mmol/L (98-107); Globulin 2.3 g/dL (1.3-4.6); Glucose 112 mg/dL (65-115); Magnesium 1.7 mg/dL (1.7-2.3); Osmolality Calculated 291 mOsm/kg (285-295); Potassium 4.4 mmol/L (3.5-5.1); Sodium 138 mmol/L (136-145); Total Bilirubin 0.2 mg/dL (0.15-1.2); Total Protein 5.2 g/dL (6.6-8.7)
--- NOTE | 2024-06-06 08:13 | P.PN_ITS ---
Subjective 2 Subjective: Patient is postop day 1 resting in bed comfortable stable. Vitals/I&O/Wt Last Vital Signs Temp 98.0 F 06/06/24 07:24 Pulse 82 06/06/24 07:24 Resp 16 06/06/24 07:24 BP 101/63 06/06/24 07:24 Pulse Ox 92 06/06/24 07:24 O2 Del Method Nasal Cannula 06/06/24 07:24 O2 Flow Rate 3 06/06/24 07:24 06/05/24 06/06/24 06/06/24 22:59 06:59 14:59 Intake Total 1960 / 2960 1340 / 4300 Output Total 1190 / 1190 Balance 770 / 1770 1340 / 3110 Weight last 48 hrs Weight 121 lb 9.6 oz Weight 121 lb Physical Exam 2 Narrative: Patient's dressing is clean dry and intact. Urinary Catheter Management: Nelson: Cath Placed During This Visit: yes Reason for Continuing Indwelling Catheter: Perioperative Use in Selected Surgeries Urinary Catheter Date of Insertion: 06/05/24 Urinary Catheter Time of Insertion: 13:20 Data 06/06/24 06:31 06/06/24 06:31 Micro: Microbiology 06/05/24 16:17 Blood Culture - Preliminary Blood SPECIMEN COLLECTED 06/05/24 16:17 Blood Culture - Preliminary Blood SPECIMEN COLLECTED A&P Assessment and plan (1) Status post hemiarthroplasty of right hip: Patient is postop day #1 revision hip. Weight-bear as tolerated Hemoglobin is 7.7 will give him a unit of blood. Attestations 2 Medical Necessity Statement*: Per primary service Coding Level of Care Code Acute Code for Chg Fwd Diagnoses Status post hemiarthroplasty of right hip Z96.641
[2024-06-06] MEDS: escitalopram 10 mg Tablet PO (09:14)
[2024-06-06] MEDS: risperiDONE 0.25 mg Tablet 0.5 MG PO (09:14)
[2024-06-06] MEDS: carbidopa-levodopa 25-100mg Tablet 1 EACH PO ×3 (09:14→20:18)
[2024-06-06] MEDS: lithium carbonate 300 mg Capsule PO (09:15)
[2024-06-06] MEDS: loratadine 10 mg Tablet PO (09:15)
[2024-06-06] MEDS: fluticasone nasal spray 16gm Btl 1 SPRAY INTRANASAL ×2 (09:19→16:33)
--- NOTE | 2024-06-06 10:28 | PC.CHAP ---
Pastoral Care Encounter/Spiritual Assessment Type of Contact [] Declined jewelry store manager visit [] Patient/Family/Request visit [] Outpatient visit [] Follow-up visit [] Physician referral [] Code/Alert [x] Routine visit [] Staff referral [] Actively dying [] Patient sleeping [] Family support [] [] Out of room [] Palliative care [] [x] Receiving care in room [] Pre-surgical visit [] Trauma [] Long length of stay [] ICU visit [] Other: Relational/Emotional Strength [] Patient feels connected with others/family/visitors/staff [] Distress [] Loneliness/isolation [] Abandonment Spirituality of Patient [] Person of Anjali [] Attends Lutheran of their Anjali [] Believes in Prayer [] Reads Bible or Sabianism materials [] There are Spiritual issues to be addressed Lathe Mechanic Interventions [] Prayer [x] Active listening [x] Non-anxious presence [] Spiritual/emotional support [] Crisis/trauma care [] Spiritual counseling [] Bereavement support [] Provided bereavement packet [] Provided Bible/devotional materials [] Provided toy/stuffed animal, coloring book to patient or family member [] Provided Communion [] Anointing/[place] [] Salvation [] Completed spiritual assessment [] Other: Impact on Illness or Injury [] Angry [] Fearful [] Anxious [] Often cries [] Exhaustion [] Unable to work [] Unable to attend sabianism [] Unable to walk/stand [] Unable to read [] Unable to drive [] Unable to eat/drink [] Unable to sleep [] Unable to be with family [] Patient intubated [] Other: Summary Had need of nurses. Called nurses. Will return tomorrow. Time spent with patient
--- NOTE | 2024-06-06 13:57 | P.PN_ITS ---
Subjective 2 Subjective: No acute events overnight. Today morning seen sitting up in chair. Has remained hemodynamically stable and afebrile. Vitals/I&O/Wt Last Vital Signs Temp 98.1 F 06/06/24 13:10 Pulse 84 06/06/24 13:10 Resp 18 06/06/24 13:10 BP 126/68 06/06/24 13:10 Pulse Ox 98 06/06/24 13:10 O2 Del Method Nasal Cannula 06/06/24 11:01 O2 Flow Rate 3 06/06/24 11:01 06/05/24 06/06/24 06/06/24 22:59 06:59 14:59 Intake Total 1960 / 2960 1340 / 4300 540 / 540 Output Total 1190 / 1190 Balance 770 / 1770 1340 / 3110 540 / 540 Weight last 48 hrs Weight 55.157 kg Weight 54.885 kg Physical Exam 2 Narrative: General: No acute distress, AO x 2-3, dehydrated, mild pallor HEENT: PERRLA, pupils bilaterally equal and reactive Chest: Normal vesicular breath sounds, no added sounds, equal good air entry bilaterally CVS: S1-S2 regular, no murmurs, no tachycardia, no gallops, no rubs Abdomen: Soft, nontender, no organomegaly, bowel sounds present Neuro: No focal deficits, no facial deformity, AO x3, power 5/5 in all limbs Urinary Catheter Management: Nelson: Cath Placed During This Visit: yes Reason for Continuing Indwelling Catheter: Perioperative Use in Selected Surgeries Urinary Catheter Date of Insertion: 06/05/24 Urinary Catheter Time of Insertion: 13:20 Data 06/06/24 06:31 06/06/24 06:31 Micro: Microbiology 06/05/24 13:25 Urine Culture - Preliminary Urine,Clean Catch Gram Negative Rods 06/05/24 16:17 Blood Culture - Preliminary Blood SPECIMEN COLLECTED 06/05/24 16:17 Blood Culture - Preliminary Blood SPECIMEN COLLECTED A&P Assessment and plan (1) Encounter for postoperative care: (2) Status post hemiarthroplasty of right hip: (3) UTI (urinary tract infection): (4) Hardware failure: (5) Loosening of intramedullary nail: (6) Bipolar affective: Qualifiers: Active/Remission status: in full remission Most recent bipolar episode type: mixed Qualified Code(s): F31.78 - Bipolar disorder, in full remission, most recent episode mixed (7) Lewy body dementia: (8) COPD (chronic obstructive pulmonary disease): Past history. No exacerbation. DuoNeb as needed. (9) Postoperative anemia: Plan 73-year-old gentleman who underwent revision of right hip with hemiarthroplasty in setting of failure of hardware from ORIF done in February 2024. Postop day 1. Patient was having postoperative anemia. Target hemoglobin more than 7. Transfuse monitor PRBC. Appreciate iron panel. Appreciate recent B12 levels. Physical therapy. Patient is eating well. Stop IV fluids. UTI: UA concerning for UTI. Follow-up blood culture, urine culture. Urine cultures are now growing gram-negative rods. History of UTI with E. coli. Continue with IV ceftriaxone 1 g daily. Will de- escalate antibiotics as per culture sensitivities. Continue other chronic home medication including carbidopa levodopa, finasteride, lithium, propranolol, risperidone, Flomax. Full code Cardiac diet once able. Anticoagulation per primary team Protonix for PUD prophylaxis Attestations 2 Medical Necessity Statement*: Requires further hospitalization for management of postoperative anemia, postoperative care post hemiarthroplasty of hip, UTI Diagnoses Encounter for postoperative care Z48.89 Status post hemiarthroplasty of right hip Z96.641 UTI (urinary tract infection) N39.0 Hardware failure Loosening of intramedullary nail T84.199A Bipolar disorder, in full remission, most recent episode mixed F31.78 Active/Remission status: in full remission Most recent bipolar episode type: mixed Lewy body dementia G31.83; F02.80 COPD (chronic obstructive pulmonary disease) J44.9 Postoperative anemia D64.9
[2024-06-06] MEDS: cefTRIAXone 1,000 mg SDV 1000 MG IVP (16:32)
[2024-06-06 18:40] LABS: Hematocrit 28.5 % (37-53)
[2024-06-06] MEDS: finasteride 5 mg Tablet PO (20:18)
[2024-06-06] MEDS: tamsulosin 0.4 mg Capsule PO (20:18)
[2024-06-07] VITALS (7 sets, daily range): BP systolic 81–122; BP diastolic 46–76; PULSE 76–93; RESP 16–20; TEMP 36.9–37.1; O2SAT 91–98
[2024-06-07] MEDS: enoxaparin 30 mg/0.3 mL Syringe SUBCUT (04:36)
[2024-06-07] MEDS: pantoprazole DR 40 mg Tablet PO ×2 (04:36→16:00)
[2024-06-07 05:43] LABS: Basophils % 0.4 %; Eosinophils # 0.2 10^3/uL (0.0-0.8); Eosinophils % 2.3 %; Hematocrit 27.3 % (37-53); Lymphocytes # 1.1 10^3/uL (0.8-4.8); Lymphocytes % 12.4 %; Mean Corpuscular HGB Conc 30.8 g/dL (30-55); Mean Corpuscular Hemoglobin 28.8 pg (27-33); Mean Corpuscular Volume 93.5 fl (82-101); Mean Platelet Volume 10.8 fL (7.4-10.4); Monocytes # 1.1 10^3/uL (0.2-0.9); Neutrophils # 6.14 10^3/uL (1.8-7.7); Neutrophils % 71.5 %; Nucleated Red Blood Cells % 0 %; Platelet Count 143 10^3/cmm (157-399); Red Blood Count 2.92 10^6/uL (3.85-5.65); White Blood Count 8.57 10^3/uL (3.29-11.43)
[2024-06-07] MEDS: HYDROcodone-acetaminophen 5-325 mg Tablet PO (06:04)
[2024-06-07 06:08] LABS: Alanine Aminotransferase < 5 U/L (0-41); Albumin Level 2.8 g/dL (3.5-5.2); Alkaline Phosphatase 104 U/L (40-130); Aspartate Amino Transferase 18 U/L (0-40); Blood Urea Nitrogen 23 mg/dL (8-23); Calcium 8.6 mg/dL (8.5-10.5); Carbon Dioxide 19 mmol/L (22-29); Chloride 108 mmol/L (98-107); Creatinine Clr Calc Pharmacy 48.7319; Globulin 2.2 g/dL (1.3-4.6); Glucose 117 mg/dL (65-115); Osmolality Calculated 289 mOsm/kg (285-295); Sodium 137 mmol/L (136-145); Total Bilirubin 0.3 mg/dL (0.15-1.2)
[2024-06-07 06:11] LABS: Magnesium 1.6 mg/dL (1.7-2.3)
[2024-06-07] MEDS: escitalopram 10 mg Tablet PO (09:12)
[2024-06-07] MEDS: risperiDONE 0.25 mg Tablet 0.5 MG PO (09:12)
[2024-06-07] MEDS: carbidopa-levodopa 25-100mg Tablet 1 EACH PO ×3 (09:12→20:31)
[2024-06-07] MEDS: lithium carbonate 300 mg Capsule PO (09:12)
[2024-06-07] MEDS: loratadine 10 mg Tablet PO (09:13)
[2024-06-07] MEDS: fluticasone nasal spray 16gm Btl 1 SPRAY INTRANASAL ×2 (09:15→17:50)
--- NOTE | 2024-06-07 14:54 | P.PN_ITS ---
Subjective 2 Subjective: No acute events overnight. Patient has remained hemodynamically stable and afebrile. Denies any nausea, vomiting, headache. Working with physical therapy. On 2 L of oxygen supplementation saturating more than 95%. Vitals/I&O/Wt Last Vital Signs Temp 98.4 F 06/07/24 11:02 Pulse 82 06/07/24 11:02 Resp 18 06/07/24 11:02 BP 122/63 06/07/24 11:02 Pulse Ox 95 06/07/24 11:02 O2 Del Method Nasal Cannula 06/07/24 11:02 O2 Flow Rate 2 06/07/24 11:02 06/06/24 06/07/24 06/07/24 22:59 06:59 14:59 Intake Total 1190 / 2080 240 / 240 Output Total 2650 / 2650 Balance 1190 / 2080 -2650 / -570 240 / 240 Weight last 48 hrs Weight 63.095 kg Weight 55.157 kg Physical Exam 2 Narrative: General: No acute distress, AO x 2-3, dehydrated, mild pallor HEENT: PERRLA, pupils bilaterally equal and reactive Chest: Normal vesicular breath sounds, no added sounds, equal good air entry bilaterally CVS: S1-S2 regular, no murmurs, no tachycardia, no gallops, no rubs Abdomen: Soft, nontender, no organomegaly, bowel sounds present Neuro: No focal deficits, no facial deformity, AO x3, power 5/5 in all limbs Urinary Catheter Management: Nelson: Cath Placed During This Visit: yes, but has since been removed by the nurse Reason for Continuing Indwelling Catheter: Perioperative Use in Selected Surgeries Urinary Catheter Date of Insertion: 06/05/24 Urinary Catheter Time of Insertion: 13:20 Date Urinary Catheter Removed: 06/07/24 Time Urinary Catheter Discontinued: 06:10 Data 06/07/24 05:09 06/07/24 05:09 Micro: Microbiology 06/05/24 13:25 Urine Culture - Final Urine,Clean Catch Escherichia coli 06/05/24 16:17 Blood Culture - Preliminary Blood NEGATIVE TO DATE 06/05/24 16:17 Blood Culture - Preliminary Blood NEGATIVE TO DATE A&P Assessment and plan (1) Encounter for postoperative care: (2) Status post hemiarthroplasty of right hip: (3) UTI (urinary tract infection): (4) Hardware failure: (5) Loosening of intramedullary nail: (6) Bipolar affective: Qualifiers: Active/Remission status: in full remission Most recent bipolar episode type: mixed Qualified Code(s): F31.78 - Bipolar disorder, in full remission, most recent episode mixed (7) Lewy body dementia: (8) COPD (chronic obstructive pulmonary disease): Past history. No exacerbation. DuoNeb as needed. (9) Postoperative anemia: Plan 73-year-old gentleman who underwent revision of right hip with hemiarthroplasty in setting of failure of hardware from ORIF done in February 2024. Postop day 2. Patient was having postoperative anemia. Post to monitor blood transfusion. Hemoglobin up appropriately. Continue monitor daily. Target hemoglobin more than 7. Appreciate iron panel. Appreciate recent B12 levels. Physical therapy. Patient is eating well. Stop IV fluids. UTI: UA concerning for UTI. Follow-up blood culture, urine culture. Urine culture growing E. coli. Appreciate sensitivities. Sensitive to Levaquin. For now continue with IV ceftriaxone. Will transition over to oral Levaquin on discharge to finish a 5-day course. DC Nelson catheter. Hypertension: Goal blood pressure less than 140/90 mmHg with mean over 65. Blood pressure stable off propranolol for now. Continue to hold off and monitor. Continue other chronic home medication including carbidopa levodopa, finasteride, lithium, risperidone, Flomax. Full code Cardiac diet once able. Anticoagulation per primary team Protonix for PUD prophylaxis Attestations 2 Medical Necessity Statement*: Requires further hospitalization for postoperative care, post hemiarthroplasty, postoperative anemia, UTI while safe discharge planning is sought. Diagnoses Encounter for postoperative care Z48.89 Status post hemiarthroplasty of right hip Z96.641 UTI (urinary tract infection) N39.0 Hardware failure Loosening of intramedullary nail T84.199A Bipolar disorder, in full remission, most recent episode mixed F31.78 Active/Remission status: in full remission Most recent bipolar episode type: mixed Lewy body dementia G31.83; F02.80 COPD (chronic obstructive pulmonary disease) J44.9 Postoperative anemia D64.9
[2024-06-07] MEDS: cefTRIAXone 1,000 mg SDV 1000 MG IVP (16:00)
--- NOTE | 2024-06-07 16:29 | P.PN_ITS ---
Subjective 2 Subjective: Patient is postop day 2 resting in bed comfortable stable. Planning for discharge at rehab facility once set up through case management/social Vitals/I&O/Wt Last Vital Signs Temp 98.4 F 06/07/24 11:02 Pulse 82 06/07/24 11:02 Resp 18 06/07/24 11:02 BP 122/63 06/07/24 11:02 Pulse Ox 95 06/07/24 11:02 O2 Del Method Nasal Cannula 06/07/24 11:02 O2 Flow Rate 2 06/07/24 11:02 06/07/24 06/07/24 06/07/24 06:59 14:59 22:59 Intake Total 240 / 240 Output Total 2650 / 2650 Balance -2650 / -570 240 / 240 Weight last 48 hrs Weight 139 lb 1.6 oz Weight 121 lb 9.6 oz Physical Exam 2 Narrative: Patient's dressing is clean dry and intact. Sensation tact light touch distally. Patient is able to subtly plantarflex and dorsiflex ankle, compartments are soft and compressible right lower extremity warm well-perfused. Urinary Catheter Management: Nelson: Cath Placed During This Visit: yes, but has since been removed by the nurse Reason for Continuing Indwelling Catheter: Perioperative Use in Selected Surgeries Urinary Catheter Date of Insertion: 06/05/24 Urinary Catheter Time of Insertion: 13:20 Date Urinary Catheter Removed: 06/07/24 Time Urinary Catheter Discontinued: 06:10 Data 06/07/24 05:09 06/07/24 05:09 Micro: Microbiology 06/05/24 13:25 Urine Culture - Final Urine,Clean Catch Escherichia coli 06/05/24 16:17 Blood Culture - Preliminary Blood NEGATIVE TO DATE 06/05/24 16:17 Blood Culture - Preliminary Blood NEGATIVE TO DATE A&P Assessment and plan (1) Status post hemiarthroplasty of right hip: Patient is postop day #2 revision hip. Weight-bear as tolerated AM labs reviewed Internal medicine on board for medical management appreciate their assistance guest services director/case management for discharge planning likely rehab facility at discharge. Orthopedics will continue to follow Attestations 2 Medical Necessity Statement*: Per primary service Coding Level of Care Code Acute Code for Chg Fwd Diagnoses Status post hemiarthroplasty of right hip Z96.641 Time Spent (min) 10
[2024-06-07] MEDS: propranolol 20 mg Tablet 10 MG PO (20:31)
[2024-06-07] MEDS: tamsulosin 0.4 mg Capsule PO (20:31)
[2024-06-07] MEDS: finasteride 5 mg Tablet PO (20:31)
[2024-06-08] VITALS (13 sets, daily range): BP systolic 75–108; BP diastolic 40–61; PULSE 70–83; RESP 15–16; TEMP 36.4–37.5; O2SAT 90–95
[2024-06-08] MEDS: enoxaparin 30 mg/0.3 mL Syringe SUBCUT (04:18)
[2024-06-08] MEDS: pantoprazole DR 40 mg Tablet PO ×2 (04:18→16:16)
[2024-06-08 06:10] LABS: Basophils # 0.1 10^3/uL (0.0-0.1); Basophils % 0.5 %; Eosinophils # 0.4 10^3/uL (0.0-0.8); Eosinophils % 4.2 %; Hematocrit 24.4 % (37-53); Lymphocytes # 1.3 10^3/uL (0.8-4.8); Lymphocytes % 13.6 %; Mean Corpuscular HGB Conc 31.6 g/dL (30-55); Mean Corpuscular Hemoglobin 29.8 pg (27-33); Mean Corpuscular Volume 94.6 fl (82-101); Mean Platelet Volume 11.1 fL (7.4-10.4); Monocytes # 1.2 10^3/uL (0.2-0.9); Monocytes % 12.1 %; Neutrophils # 6.53 10^3/uL (1.8-7.7); Nucleated Red Blood Cells % 0 %; Platelet Count 151 10^3/cmm (157-399); Red Blood Count 2.58 10^6/uL (3.85-5.65); Red Cell Distribution Width 13.9 % (12.1-15.1); White Blood Count 9.48 10^3/uL (3.29-11.43)
[2024-06-08 06:19] LABS: Alanine Aminotransferase < 5 U/L (0-41); Albumin Level 2.6 g/dL (3.5-5.2); Alkaline Phosphatase 101 U/L (40-130); Aspartate Amino Transferase 15 U/L (0-40); Blood Urea Nitrogen 24 mg/dL (8-23); Calcium 8.8 mg/dL (8.5-10.5); Carbon Dioxide 19 mmol/L (22-29); Chloride 107 mmol/L (98-107); Creatinine Clr Calc Pharmacy 48.7319; Globulin 2.5 g/dL (1.3-4.6); Glucose 99 mg/dL (65-115); Magnesium 1.7 mg/dL (1.7-2.3); Osmolality Calculated 284 mOsm/kg (285-295); Sodium 135 mmol/L (136-145); Total Bilirubin 0.3 mg/dL (0.15-1.2); Total Protein 5.1 g/dL (6.6-8.7)
[2024-06-08] MEDS: risperiDONE 0.25 mg Tablet 0.5 MG PO (08:55)
[2024-06-08] MEDS: carbidopa-levodopa 25-100mg Tablet 1 EACH PO ×2 (08:55→16:16)
[2024-06-08] MEDS: fluticasone nasal spray 16gm Btl 1 SPRAY INTRANASAL (08:55)
[2024-06-08] MEDS: loratadine 10 mg Tablet PO (08:56)
[2024-06-08] MEDS: lithium carbonate 300 mg Capsule PO (08:56)
[2024-06-08] MEDS: propranolol 20 mg Tablet 10 MG PO (08:56)
[2024-06-08] MEDS: escitalopram 10 mg Tablet PO (08:56)
[2024-06-08 11:01] LABS: SARS Covid-2 Antigen negative (Negative)
--- NOTE | 2024-06-08 11:25 | P.PN_ITS ---
Subjective 2 Subjective: No acute events overnight. Today morning patient having few cycles of soft blood pressure though he is asymptomatic. Hemoglobin at 7.7. Vitals/I&O/Wt Last Vital Signs Temp 97.9 F 06/08/24 07:48 Pulse 76 06/08/24 08:23 Resp 16 06/08/24 08:23 BP 108/61 06/08/24 08:25 Pulse Ox 91 06/08/24 08:23 O2 Del Method Nasal Cannula 06/08/24 07:48 O2 Flow Rate 1 06/08/24 08:23 06/07/24 06/08/24 06/08/24 22:59 06:59 14:59 Intake Total 700 / 940 480 / 1420 480 / 480 Balance 700 / 940 480 / 1420 480 / 480 Weight last 48 hrs Weight 59.239 kg Weight 63.095 kg Physical Exam 2 Narrative: General: No acute distress, AO x 2-3, HEENT: PERRLA, pupils bilaterally equal and reactive Chest: Normal vesicular breath sounds, no added sounds, equal good air entry bilaterally CVS: S1-S2 regular, no murmurs, no tachycardia, no gallops, no rubs Abdomen: Soft, nontender, no organomegaly, bowel sounds present Neuro: No focal deficits, no facial deformity, AO x3, power 5/5 in all limbs Urinary Catheter Management: Nelson: Cath Placed During This Visit: yes, but has since been removed by the nurse Reason for Continuing Indwelling Catheter: Perioperative Use in Selected Surgeries Urinary Catheter Date of Insertion: 06/05/24 Urinary Catheter Time of Insertion: 13:20 Date Urinary Catheter Removed: 06/07/24 Time Urinary Catheter Discontinued: 06:10 Data 06/08/24 05:36 06/08/24 05:36 Micro: Microbiology 06/05/24 13:25 Urine Culture - Final Urine,Clean Catch Escherichia coli A&P Assessment and plan (1) Encounter for postoperative care: (2) Status post hemiarthroplasty of right hip: (3) UTI (urinary tract infection): (4) Hardware failure: (5) Loosening of intramedullary nail: (6) Bipolar affective: Qualifiers: Active/Remission status: in full remission Most recent bipolar episode type: mixed Qualified Code(s): F31.78 - Bipolar disorder, in full remission, most recent episode mixed (7) Lewy body dementia: (8) COPD (chronic obstructive pulmonary disease): Past history. No exacerbation. DuoNeb as needed. (9) Postoperative anemia: Plan 73-year-old gentleman who underwent revision of right hip with hemiarthroplasty in setting of failure of hardware from ORIF done in February 2024. Postop day 2. Patient was having postoperative anemia. Post to monitor blood transfusion. Hemoglobin up appropriately. Continue monitor daily. Target hemoglobin more than 7. Appreciate iron panel. Appreciate recent B12 levels. Physical therapy. Patient is eating well. Stop IV fluids. UTI: UA concerning for UTI. Follow-up blood culture, urine culture. Urine culture growing E. coli. Appreciate sensitivities. Sensitive to Levaquin. For now continue with IV ceftriaxone. Will transition over to oral Levaquin on discharge to finish a 5-day course. DC Nelson catheter. Hypertension: Goal blood pressure less than 140/90 mmHg with mean over 65. Blood pressure stable off propranolol for now. Continue to hold off and monitor. Continue other chronic home medication including carbidopa levodopa, finasteride, lithium, risperidone, Flomax. Plan for the day: Will transfuse 1 more unit of PRBC. Hemoglobin at 7.7 but patient having few episodes of hypotension. Mean artery pressure are being maintained over 65. Urine culture susceptibility showing E. coli. Sensitive to Levaquin. Will plan to continue Levaquin to finish the 7-day course. Patient has had soft blood pressures to have remained asymptomatic. For now we will plan to discharge off propranolol with advised to check blood pressures daily and maintain blood pressure diary and follow-up with primary care provider within next 2 weeks with target blood pressure of less than 140/90 mmHg. Full code Cardiac diet. Anticoagulation per primary team Protonix for PUD prophylaxis Attestations 2 Medical Necessity Statement*: As per primary. Diagnoses Encounter for postoperative care Z48.89 Status post hemiarthroplasty of right hip Z96.641 UTI (urinary tract infection) N39.0 Hardware failure Loosening of intramedullary nail T84.199A Bipolar disorder, in full remission, most recent episode mixed F31.78 Active/Remission status: in full remission Most recent bipolar episode type: mixed Lewy body dementia G31.83; F02.80 COPD (chronic obstructive pulmonary disease) J44.9 Postoperative anemia D64.9
--- NOTE | 2024-06-08 12:22 | P.PN_ITS ---
Subjective 2 Subjective: Patient seen and examined. Patient hemoglobin is 7.7, internal medicine is 1 unit PRBC ordered then placed plans to discharge to SNF today. Vitals/I&O/Wt Last Vital Signs Temp 99.5 F 06/08/24 12:00 Pulse 78 06/08/24 12:00 Resp 16 06/08/24 08:23 BP 86/48 06/08/24 12:00 Pulse Ox 95 06/08/24 12:00 O2 Del Method Room Air 06/08/24 12:00 O2 Flow Rate 1 06/08/24 08:23 06/07/24 06/08/24 06/08/24 22:59 06:59 14:59 Intake Total 700 / 940 480 / 1420 480 / 480 Balance 700 / 940 480 / 1420 480 / 480 Weight last 48 hrs Weight 130 lb 9.6 oz Weight 139 lb 1.6 oz Physical Exam 2 Narrative: Patient's dressing is clean dry and intact. Sensation tact light touch distally. Patient is able to subtly plantarflex and dorsiflex ankle, compartments are soft and compressible right lower extremity warm well-perfused. Urinary Catheter Management: Nelson: Cath Placed During This Visit: yes, but has since been removed by the nurse Reason for Continuing Indwelling Catheter: Perioperative Use in Selected Surgeries Urinary Catheter Date of Insertion: 06/05/24 Urinary Catheter Time of Insertion: 13:20 Date Urinary Catheter Removed: 06/07/24 Time Urinary Catheter Discontinued: 06:10 Data 06/08/24 05:36 06/08/24 05:36 Micro: Microbiology 06/05/24 13:25 Urine Culture - Final Urine,Clean Catch Escherichia coli A&P Assessment and plan (1) Status post hemiarthroplasty of right hip: Patient is postop day #3 revision hip. Weight-bear as tolerated AM labs reviewed receiving 1 unit PRBC per primary Internal medicine on board for medical management appreciate their assistance health services coordinator/case management for discharge planning for SNF today Stable for discharge from orthopedic standpoint, patient to follow-up with Dr. Quesada in 2 weeks for outpatient follow-up. Attestations 2 Medical Necessity Statement*: Ongoing care status post right hip hemiarthroplasty Coding Level of Care Code Acute Code for Chg Fwd Diagnoses Status post hemiarthroplasty of right hip Z96.641 Time Spent (min) 15
--- NOTE | 2024-06-08 15:38 | PC.NURSE ---
Report called to KEISHA Heaton at [facility]. Reason for stay, procedures, labs, vital signs, and interventions discussed. All questions answered and addressed.
[2024-06-08] MEDS: cefTRIAXone 1,000 mg SDV 1000 MG IVP (16:16)
== END 2024-06-08 16:25 | disposition intermediate care facility (04) | DRG 470 ==
LOC: MEDSURG 19:24
PROVIDERS: Student in an Organized Health Care Education/Training Program; Admitting Provider Orthopaedic Surgery; PCP Family Medicine; Visit Provider Orthopaedic Surgery
PROC: 0QP804Z Removal of Internal Fixation Device from Right Femoral Shaft, Open Approach (ICD-10-PCS; CPT 27125; principal; 2024-06-05 13:50)
PROC: 0QP804Z Removal of Internal Fixation Device from Right Femoral Shaft, Open Approach (ICD-10-PCS; 2024-06-05 13:50)
DX: T84.84XA Pain due to internal orthopedic prosthetic devices, implants and grafts, initial encounter (principal); N39.0 Urinary tract infection, site not specified; T84.124A Displacement of internal fixation device of right femur, initial encounter; Y79.3 Surgical instruments, materials and orthopedic devices (including sutures) associated with adverse incidents; I10 Essential (primary) hypertension; J44.9 Chronic obstructive pulmonary disease, unspecified; K21.9 Gastro-esophageal reflux disease without esophagitis; G20.A1 Parkinson's disease without dyskinesia, without mention of fluctuations; G31.83 Neurocognitive disorder with Lewy bodies; F02.80 Dementia in other diseases classified elsewhere, unspecified severity, without behavioral disturbance, psychotic disturbance, mood disturbance, and anxiety; F31.78 Bipolar disorder, in full remission, most recent episode mixed; Z79.01 Long term (current) use of anticoagulants; G25.5 Other chorea; F31.9 Bipolar disorder, unspecified; F20.9 Schizophrenia, unspecified; B96.20 Unspecified Escherichia coli [E. coli] as the cause of diseases classified elsewhere; Z11.52 Encounter for screening for COVID-19; I95.9 Hypotension, unspecified; D64.9 Anemia, unspecified
CPT/HCPCS: 36415; 36430; 51702; 73501; 76000; 80053; 81001; 83540; 83550; 83735; 85014; 85018; 85025; 86850; 86900; 86920; 87040; 87077; 87086; 87186; 87426; 96372; 97161; 97166; 97530; C1713; C1776; J0690; J0696; J1100; J1650; J2405; J2704; J2710; J3010; J3370; J3490; J7030; P9016; P9047